=== PATIENT | male | born 1945 | race Caucasian/White ===

== ENCOUNTER 2017-05-09 17:21 | Inpatient (IN) | payer OTHER ==
[~2017-05-09] VITALS: Ht 180.3 cm; Wt 215.3 kg
[~2017-05-09 17:21] MED LIST: PIPERACILL/TAZOBAC IV 3.375 GM in DEXTROSE 5% 100ML 100 ML IV SCH
[2017-05-09 21:15] VITALS: BP 111/65; PULSE 85; TEMP 37.2; O2SAT 95; BMI 63.7
[2017-05-09] MEDS ORDERED: HEPARIN SOD 5000 UNIT/0.5 ML CARP SQ SCH (22:00)
[2017-05-09] MEDS ORDERED: GLUCOSE 10 TABS/TUBE PO PRN (22:00)
[2017-05-09] MEDS ORDERED: NITROGLYCERIN 0.4 MG SL PER TAB CHARGE SL PRN (22:00)
[2017-05-09] MEDS ORDERED: GLUCOSE 40% GEL 15 GM TUBE PO PRN (22:00)
[2017-05-09] MEDS ORDERED: ACETAMINOPHEN 325 MG TAB PO PRN (22:00)
[2017-05-09] MEDS ORDERED: GLUCAGON FOR INJ 1 MG VIAL SQ PRN (22:00)
[2017-05-09] MEDS ORDERED: MAGNESIUM HYDROXIDE SUSP 30 ML UDC PO PRN (22:00)
[2017-05-09] MEDS ORDERED: POLYETHYLENE (MIRALAX) 17 GM PACK PO PRN (22:00)
[2017-05-09] MEDS ORDERED: DEXTROSE 50% 50 ML SYR IV PRN (22:00)
[2017-05-09 22:03] VITALS: PULSE 83; O2SAT 95
[2017-05-09] MEDS ORDERED: VANCOMYCIN CONSULT ACTIVE PRN (22:15)
[2017-05-09] MEDS ORDERED: HYZ/50125 PO (22:29)
[2017-05-09] MEDS ORDERED: CIPR1TAB11 PO (22:29)
[2017-05-09] MEDS ORDERED: [UNRECOGNIZED DRUG - OTHER] OPB (22:29)
[2017-05-09] MEDS ORDERED: TRAM-10 PO (22:29)
[2017-05-09] MEDS ORDERED: FRS/40 PO (22:29)
[2017-05-09] MEDS ORDERED: ASPI81TA28 PO (22:29)
[2017-05-09] MEDS ORDERED: METF-384 PO (22:29)
[2017-05-09] MEDS ORDERED: AMOX500C3 PO (22:29)
[2017-05-09] MEDS ORDERED: POTA10CA28 PO (22:29)
[2017-05-09] MEDS ORDERED: MESA0.37 PO (22:29)
[2017-05-09] MEDS ORDERED: SULF400T7 PO (22:29)
--- NOTE | 2017-05-09 22:29 | DIAGNOSTIC IMAGING REPORT ---
CHEST ONE VIEW PORTABLE CLINICAL HISTORY: Acute respiratory failure. COMPARISON STUDY: No previous studies for comparison. FINDINGS: This exam is compromised given portable technique and body habitus. There is mild to moderate enlargement of the cardiac silhouette. No pneumothorax or pleural effusion is identified. There are bibasilar opacities, greater on the left. There is no evidence for pulmonary edema. IMPRESSION: 1. Bibasilar opacities, greater on the left. These may be artifactual however pneumonia could have this appearance. Radiographic follow up is recommended. 2. Mild to moderate enlargement of the cardiac silhouette without evidence for pulmonary edema. Electronically signed by: Sal Sun M.D. 05/09/2017 10:28 PM Dictated Date/Time: 05/09/2017 10:24 PM
[2017-05-09] MEDS ORDERED: PIPERACILL/TAZOBAC CONSULT ACTIVE PRN (22:30)
[2017-05-09] MEDS ORDERED: PATIENT'S ALLERGY INFO NEEDS ENTERED SCH (22:45)
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
[2017-05-09] MEDS ORDERED: TRAMADOL HCL 50 MG TAB PO PRN (23:00)
[2017-05-09 23:12] LABS: BASO % 0.2 %; BASO ABS # 0.02 K/uL (0-0.2); EOS % 2.6 %; EOS ABS # 0.23 K/uL (0-0.5); HEMATOCRIT 39.9 % (42-52); HEMOGLOBIN 12.3 g/dL (14.0-18.0); IG# 0.03 K/uL (0.00-0.02); LYMPH % 11.1 %; LYMPH ABS # 0.98 K/uL (1.2-3.4); MEAN CELL VOLUME 98.3 fL (80-100); MEAN CORPUSCULAR HEMOGLOBIN 30.3 pg (25-34); MEAN CORPUSCULAR HGB CONC 30.8 g/dl (32-36); MEAN PLATELET VOLUME 9.6 fL (7.4-10.4); MONO % 6.2 %; MONO ABS # 0.55 K/uL (0.11-0.59); NEUT % 79.6 %; NEUT ABS # 7.02 K/uL (1.4-6.5); PLATELET COUNT 198 K/uL (130-400); RED CELL DISTRIBUTION WIDTH CV 15.3 % (11.5-14.5); RED CELL DISTRIBUTION WIDTH SD 54.6 fL (36.4-46.3); WHITE BLOOD COUNT 8.83 K/uL (4.8-10.8)
[2017-05-09] MEDS: SODIUM CHLORIDE 0.9% 1000ML 1,000 ML IV SCH (23:15)
[2017-05-09] MEDS ORDERED: PIPERACILL/TAZOBAC IV 4.5 GM in DEXTROSE 5% 100ML IV ONE (23:15)
[2017-05-09 23:23] LABS: ALBUMIN 2.3 gm/dl (3.4-5.0); ALT/SGPT 22 U/L (12-78); BLOOD UREA NITROGEN 31 mg/dl (7-18); CARBON DIOXIDE 39 mmol/L (21-32); CREATININE 1.47 mg/dl (0.60-1.40); GLUCOSE 142 mg/dl (70-99); POTASSIUM 4.5 mmol/L (3.5-5.1); SODIUM 137 mmol/L (136-145)
[2017-05-09 23:28] LABS: ALKALINE PHOSPHATASE 50 U/L (45-117); AST/SGOT 21 U/L (15-37); PHOSPHORUS 3.8 mg/dl (2.5-4.9); TOTAL PROTEIN 7.6 gm/dl (6.4-8.2)
[2017-05-09] MEDS ORDERED: VANCOMYCIN INJ 2,750 MG in SODIUM CHLORIDE 0.9% 500ML 500 ML IV SCH (23:30)
[2017-05-09 23:33] VITALS: BP 116/48; PULSE 85; TEMP 37.2; O2SAT 99
[2017-05-10] VITALS (83 sets, daily range): BP systolic 56–136; BP diastolic 29–117; PULSE 66–111; TEMP 37.2; O2SAT 69–100; Ht 180.3 cm; Wt 215.3 kg
[2017-05-10] MEDS ORDERED: INFLUENZA VACCINE HIGH DOSE 65+ 0.5 ML SYR IM. ONE (01:00)
[2017-05-10] MEDS ORDERED: PNEUMOCOCCAL ADMINISTRATION CHARGE ONE (01:00)
[2017-05-10] MEDS ORDERED: PNEUMOCOCCAL POLYSACCHARIDES 25 MCG/0.5 ML VIAL/SYR IM. ONE (01:00)
[2017-05-10] MEDS ORDERED: INFLUENZA ADMINISTRATION CHARGE ONE (01:00)
[2017-05-10] MEDS ORDERED: SODIUM BICARB 8.4% INJ 50 MEQ/50 ML SYR IV ONE ×2 (02:35→02:44)
[2017-05-10] MEDS ORDERED: RAPID SEQUENCE INDUCTION BAG ONE ×2 (02:40→20:37)
[2017-05-10] MEDS ORDERED: PROPOFOL IV EMULSION 10 MG/ML 100 ML VIAL IV ONE (03:11)
[2017-05-10] MEDS ORDERED: SODIUM BICARBONATE 4.2% INJ 10 ML SYR IV STA (03:14)
[2017-05-10] MEDS ORDERED: MIDAZOLAM HCL 5 MG/ML 1 ML VIAL IV STA (03:17)
[2017-05-10] MEDS ORDERED: PROPOFOL IV EMULSION 10 MG/ML 100 ML VIAL IV PRN (03:17)
[2017-05-10] MEDS ORDERED: MIDAZOLAM 125MG/250ML D5W 250 ML IV PRN (03:48)
[2017-05-10] MEDS ORDERED: MIDAZOLAM 125MG/250ML D5W IV ONE (03:50)
[2017-05-10 03:51] LABS: INR 1.1 (0.9-1.1)
[2017-05-10] MEDS ORDERED: FENTANYL CITRATE 1250MCG/250ML NSS ONE (03:51)
[2017-05-10] MEDS: PIPERACILL/TAZOBAC IV 4.5 GM in DEXTROSE 5% 100ML IV SCH ×3 (03:54→21:23)
[2017-05-10] MEDS ORDERED: FENTANYL 1250MCG/250ML NSS 250 ML IV SCH (04:00)
[2017-05-10] MEDS ORDERED: ALBUMIN HUMAN 25% 12.5 GM/50 ML VIAL IV ONE ×3 (04:00→05:30)
[2017-05-10] MEDS ORDERED: FENTANYL CITRATE INJ 50 MCG/1 ML 2 ML VIAL IV PRN (04:00)
[2017-05-10] MEDS ORDERED: HEPARIN SQ 5000 UNIT/0.5ML 7,500 UNIT in SYRINGE 0 ML SC SCH (06:00)
[2017-05-10] MEDS ORDERED: HEPARIN SOD 5000 UNIT/0.5 ML CARP SQ SCH (06:00)
[2017-05-10] MEDS ORDERED: HEPARIN 5000 UNIT/0.5 ML SC SCH (06:00)
--- NOTE | 2017-05-10 06:35 | EMERGENCY ROOM VISIT NOTE ---
ED Visit Note Emergency endotracheal intubation note: I was asked to come to room 106 in the ICU to secure this patient's airway. This is a morbidly obese male patient in respiratory failure. The patient had O2 saturations in the low 90s on BiPAP and in the 60s on room air. Rapidly evaluated the patient's airway and concluded that this would be a difficult airway. I prepared equipment including the glide scope, rescue airway devices, suction, end-tidal CO2 detection, and colorimetric detector. We were able to use a BVM to obtain an O2 saturation of 96% with 2 person bag valve ventilation. End-tidal CO2 reading was 23. I was able to insert the glide scope into the patient's mouth without any sedation and visualize the cords. However, the patient began to bite down on the glide scope. At that point, the patient's vitals were stable. He was given 30 mg of IV etomidate. This gave significant relaxation to the patient's mouth and he was easily intubated with an 8.0 endotracheal tube. This measured 26 cm at the teeth. Tube placement was confirmed with positive colorimetric change on the end-tidal CO2 detector. There was condensation on the tube. The patient had bilateral breath sounds with auscultation. The tube was secured in place and a portable chest x-ray was ordered. Patient's O2 saturations remained greater than 92% throughout the entire procedure.
--- NOTE | 2017-05-10 07:14 | DIAGNOSTIC IMAGING REPORT ---
CHEST ONE VIEW PORTABLE CLINICAL HISTORY: 71 years-old Male presenting with TUBE PLACEMENT.. TECHNIQUE: Portable supine AP view of the chest was obtained. COMPARISON: 05/09/2017. FINDINGS: Endotracheal tube terminates over 7 cm from the perlita. Nasogastric tube descends below the diaphragm, terminus not visualized. Cardiomediastinal silhouette remains enlarged. Mildly low lung volumes with hypoventilatory changes. Prominence of pulmonary vasculature. Hazy bibasilar opacities greater on the left not significantly changed. Increased density of the right lung is also suggested more diffusely, violation limited by portable technique and patient body habitus. No pneumothorax. Osseous structures normal. Upper abdomen normal. IMPRESSION: 1. Appropriately positioned tubes. 2. Persistent bibasilar opacities, greater on the left, with more diffuse mild increase density of the right lung suggested. This is favored to represent pulmonary edema, although infection or aspiration are not excluded. Electronically signed by: Pk Duran M.D. 05/10/2017 7:12 AM Dictated Date/Time: 05/10/2017 7:10 AM
[2017-05-10 07:25] LABS: HEMOGLOBIN A1C 6.9 % (4.5-5.6)
[2017-05-10] MEDS: INSULIN ASPART 100 UNITS/ML 3 ML PEN SC SCH ×4 (07:55→23:54)
[2017-05-10] MEDS ORDERED: ALBUT/IPRATROP 3MG/0.5MG NEB 3 ML VIAL INH SCH (08:00)
[2017-05-10] MEDS: APRISO~ORDER AWAITING ACTION SCH ×4 (08:00→23:48)
[2017-05-10] MEDS ORDERED: INSULIN GLARGINE SOLOSTAR 100 UNITS/ML 3 ML PEN SC ONE (08:15)
[2017-05-10] MEDS: SODIUM CHLORIDE 0.9% 1000ML 1,000 ML IV SCH (08:16)
[2017-05-10] MEDS ORDERED: MIDAZOLAM HCL 5 MG/ML 2ML VIAL IV ONE (08:19)
[2017-05-10] MEDS ORDERED: FENTANYL CITRATE INJ 50 MCG/1 ML 2 ML VIAL IV ONE (08:19)
[2017-05-10] MEDS ORDERED: SUCCINYLCHOLINE CHLORIDE 20 MG/ML 10 ML VIAL IV ONE (08:19)
[2017-05-10] MEDS ORDERED: POTASSIUM CHLORIDE 10 MEQ TABCR PO SCH (09:00)
[2017-05-10] MEDS ORDERED: FUROSEMIDE 40 MG TAB PO SCH (09:00)
[2017-05-10] MEDS ORDERED: CEFEPIME IV 2,000 MG in DEXTROSE 5% 100ML 100 ML IV SCH (09:00)
[2017-05-10] MEDS ORDERED: ASPIRIN 81 MG ECTAB PO SCH (09:00)
[2017-05-10] MEDS ORDERED: LOSARTAN/HCTZ 50-12.5 EA TAB PO SCH (09:00)
[2017-05-10] MEDS: MULTIVITAMINS W/MINERALS 15ML UDP PO SCH (09:53)
[2017-05-10] MEDS: PROSOURCE NOCARB 30ML/PKT PO SCH ×2 (09:53→21:23)
[2017-05-10] MEDS: ASCORBIC ACID 500 MG TAB PO SCH (09:53)
[2017-05-10] MEDS: ZINC SULFATE 220 MG CAP PO SCH (09:53)
[2017-05-10] MEDS: PEPTAMEN INTENSE VHP 1000ML BAG OG SCH (09:53)
[2017-05-10] MEDS: FAMOTIDINE IV INJ 20 MG in SYRINGE 3 ML IV SCH ×2 (09:53→21:23)
--- NOTE | 2017-05-10 10:10 | DIAGNOSTIC IMAGING REPORT ---
BILATERAL LOWER EXTREMITY VENOUS DOPPLER CLINICAL HISTORY: Leg swelling. COMPARISON STUDY: No previous studies for comparison. TECHNIQUE: Sonography of the deep venous system of the bilateral lower extremities was performed. Compression and augmentation were evaluated. FINDINGS: The right common femoral, superficial femoral and popliteal veins were compressible. Augmentation was normal. Note is made of deep venous thrombus within the left superficial femoral and popliteal veins. This thrombus is age indeterminate. Evaluation of the calf vessels was suboptimal. IMPRESSION: Age indeterminate deep venous thrombus within the left superficial femoral and popliteal veins. Electronically signed by: Sal Sun M.D. 05/10/2017 10:08 AM Dictated Date/Time: 05/10/2017 10:07 AM
--- NOTE | 2017-05-10 10:14 | Clinical Documentation Query ---
CLINICAL DOCUMENTATION QUERY Dr. PEREZ, In your clinical opinion is this patient being managed for: ( ) Chronic hypoxic respiratory failure ( ) Not Agree ( ) Other explanation of clinical findings (Please Explain) ( ) Unable to determine (Please Define) ( ) Need to Discuss The medical record reflects the following clinical findings, treatment, and risk factors. Clinical Indicators: 71 yo male presenting with acute respiratory failure. Noted to wear home O2 and CPAP but is poorly compliant. Treatment: chronic home O2 Risk Factors: morbid obesity with DANA Please clarify and document your clinical opinion in the progress notes and discharge summary. Terms such as "probable", "suspected", "likely", "questionable", "possible", or "still to be ruled out" are acceptable. IF IN AGREEMENT, YOU MUST DOCUMENT ABOVE DIAGNOSTIC STATEMENT IN DAILY PROGRESS NOTES AND DISCHARGE SUMMARY. This document is not part of the patient's record. Thank You, Kandi Ward RN [phone]
[2017-05-10 10:19] LABS: INFLUENZA A PCR Neg for Influ A (NEG); INFLUENZA B PCR Neg for Influ B (NEG)
[2017-05-10] MEDS ORDERED: VANCOMYCIN INJ 2,500 MG in SODIUM CHLORIDE 0.9% 500ML 500 ML IV STA (11:13)
[2017-05-10 11:50] LABS: MEAN CORPUSCULAR HGB CONC 30.2 g/dl (32-36)
[2017-05-10 11:53] LABS: HEMATOCRIT 39.1 % (42-52); HEMOGLOBIN 11.8 g/dL (14.0-18.0); MEAN CELL VOLUME 100.8 fL (80-100); MEAN CORPUSCULAR HEMOGLOBIN 30.4 pg (25-34); MEAN PLATELET VOLUME 9.6 fL (7.4-10.4); PLATELET COUNT 178 K/uL (130-400); RED CELL DISTRIBUTION WIDTH CV 15.3 % (11.5-14.5); RED CELL DISTRIBUTION WIDTH SD 55.9 fL (36.4-46.3); WHITE BLOOD COUNT 8.07 K/uL (4.8-10.8)
[2017-05-10 11:55] LABS: BASO % 0.1 %; BASO ABS # 0.01 K/uL (0-0.2); EOS % 3.2 %; EOS ABS # 0.26 K/uL (0-0.5); IG# 0.02 K/uL (0.00-0.02); LYMPH ABS # 0.81 K/uL (1.2-3.4); MONO % 7.7 %; MONO ABS # 0.62 K/uL (0.11-0.59); NEUT % 78.8 %; NEUT ABS # 6.35 K/uL (1.4-6.5)
--- NOTE | 2017-05-10 11:55 | ECHOCARDIOGRAM REPORT ---
*NOTICE TO RECEIVING LIBERTARIAN AGENCY This information is strictly Confidential and protected under [place] law. [place] law prohibits you from making any further disclosure of this information unless further disclosure is expressly permitted by the written consent of the person to whom it pertains or is authorized by law. A general authorization for the release of medical or other information is not sufficient for this purpose. Hospital accepts no responsibility if the information is made available to any other person, INCLUDING THE PATIENT. Interpretation Summary * Name: EVELINA BUTT Study Date: 05/10/2017 08:58 AM BP: 107/50 mmHg * [facility] HR: 77 * : 1945 (M/d/yyyy) Gender: Male Height: 71 in * Age: 71 yrs Ethnicity: CA Weight: 457 lb * Ordering Physician: Saurav Jalloh * Referring Physician: No Doctor, Assigned * Performed By: Elizabeth Givens RDCS * * Reason For Study: CHF * BSA: 3.0 m2 * -- Conclusions -- * The left ventricle is borderline dilated. * Left ventricular systolic function is normal. * The right ventricle is mildly dilated. * The right ventricular systolic function is borderline reduced. * Right ventricular systolic pressure is normal. * The inferior vena cava is mildly dilated. Procedure Details * The study was technically limited. * The study was technically difficult. * A contrast injection of Definity was performed to improve assessment of LV function. * Contrast was injected into an intravenous site in the right arm. * One vial of Definity ultrasound contrast was diluted in normal saline to a total volume of 10 ml. A total of '2' ml of solution was administered during imaging. * Lot # [id number] of Definity utilized for procedure. * Expiration date 1 MAY 03. * The attending nurse who injected the contrast agent was JULIANNE BAGLEY RN. Left Ventricle * The left ventricle is borderline dilated. * There is mild concentric left ventricular hypertrophy. * Left ventricular systolic function is normal. * The left ventricular wall motion is normal. Right Ventricle * The right ventricle is mildly dilated. * There is normal right ventricular wall thickness. * The right ventricular systolic function is borderline reduced. Atria * The left atrial size is normal. * Right atrial size is normal. Mitral Valve * The mitral valve is grossly normal. * Significant mitral regurgitation is absent. Tricuspid Valve * The tricuspid valve is not well visualized. * There is trace tricuspid regurgitation. * Right ventricular systolic pressure is normal. Aortic Valve * The aortic valve is normal in structure and function. * Aortic valve sclerosis mild, without significant aortic valvular stenosis. * No hemodynamically significant valvular aortic stenosis. * There is no significant aortic regurgitation. Pericardium/Pleural * There is no pericardial effusion. Great Vessels * The inferior vena cava is mildly dilated. MMode 2D Measurements and Calculations IVSd 1.4 cm IVSs 1.9 cm LVIDd 5.6 cm LVIDs 3.7 cm LVPWd 1.3 cm LVPWs 1.8 cm IVS/LVPW 1.1 FS 33.4 % EDV(Teich) 153.9 ml ESV(Teich) 59.4 ml EF(Teich) 61.4 % EDV(cubed) 176.0 ml ESV(cubed) 52.1 ml EF(cubed) 70.4 % % IVS thick 34.3 % % LVPW thick 35.4 % LV mass(C)d 344.0 grams LV mass(C)dI 114.8 grams/m\S\2 LV mass(C)s 305.2 grams LV mass(C)sI 101.9 grams/m\S\2 SV(Teich) 94.5 ml SI(Teich) 31.5 ml/m\S\2 SV(cubed) 123.9 ml SI(cubed) 41.4 ml/m\S\2 Ao root diam 3.8 cm Ao root area 11.4 cm\S\2 LA dimension 3.3 cm LA/Ao 0.87
[2017-05-10 12:05] LABS: INR 1.1 (0.9-1.1); PTT PATIENT 25.1 SECONDS (21.0-31.0)
--- NOTE | 2017-05-10 12:07 | Pharmacy Progress Note ---
Pharmacy Antibiotic Consult Date of Service: May 10, 2017. Pharmacy Dosing Scope Pharmacy is consulted to initiate vancomycin IV dosing therapy, order appropriate labs and adjust drug dose/frequency. Subjective The patient is a 71 year old male admitted on May 09, 2017 at 21:08. Objective Height (Feet): 5 Height (Inches): 11.00 Weight (Kilograms): 207.300 Lab Results (24hrs): Test 05/09/17 22:23 05/09/17 22:37 05/09/17 22:50 05/09/17 23:06 Bedside Glucose 151 mg/dl (70-99) Urine Color YELLOW Urine Appearance CLEAR (CLEAR) Urine pH 5.0 (4.5-7.5) Urine Specific [place] 1.019 (1.000-1.030) Urine Protein TRACE (NEG) Urine Glucose (UA) NEG (NEG) Urine Ketones NEG (NEG) Urine Occult Blood 1+ (NEG) Urine Nitrite NEG (NEG) Urine Bilirubin NEG (NEG) Urine Urobilinogen NEG (NEG) Urine Leukocyte Esterase MODERATE (NEG) Urine WBC (Auto) 5-10 /hpf (0-5) Urine RBC (Auto) 10-30 /hpf (0-4) Urine Hyaline Casts (Auto) 1-5 /lpf (0-5) Urine Epithelial Cells (Auto) 20-30 /lpf (0-5) Urine Bacteria (Auto) NEG (NEG) White Blood Count 8.83 K/uL (4.8-10.8) Red Blood Count 4.06 M/uL (4.7-6.1) Hemoglobin 12.3 g/dL (14.0-18.0) Hematocrit 39.9 % (42-52) Mean Corpuscular Volume 98.3 fL (80-100) Mean Corpuscular Hemoglobin 30.3 pg (25-34) Mean Corpuscular Hemoglobin Concent 30.8 g/dl (32-36) Platelet Count 198 K/uL (130-400) Mean Platelet Volume 9.6 fL (7.4-10.4) Neutrophils (%) (Auto) 79.6 % Lymphocytes (%) (Auto) 11.1 % Monocytes (%) (Auto) 6.2 % Eosinophils (%) (Auto) 2.6 % Basophils (%) (Auto) 0.2 % Neutrophils # (Auto) 7.02 K/uL (1.4-6.5) Lymphocytes # (Auto) 0.98 K/uL (1.2-3.4) Monocytes # (Auto) 0.55 K/uL (0.11-0.59) Eosinophils # (Auto) 0.23 K/uL (0-0.5) Basophils # (Auto) 0.02 K/uL (0-0.2) RDW Standard Deviation 54.6 fL (36.4-46.3) RDW Coefficient of Variation 15.3 % (11.5-14.5) Immature Granulocyte % (Auto) 0.3 % Immature Granulocyte # (Auto) 0.03 K/uL (0.00-0.02) Prothrombin Time 11.6 SECONDS (9.0-12.0) Prothromb Time International Ratio 1.1 (0.9-1.1) Sodium Level 137 mmol/L (136-145) Potassium Level 4.5 mmol/L (3.5-5.1) Chloride Level 98 mmol/L (98-107) Carbon Dioxide Level 39 mmol/L (21-32) Anion Gap 1.0 mmol/L (3-11) Blood Urea Nitrogen 31 mg/dl (7-18) Creatinine 1.47 mg/dl (0.60-1.40) Est Creatinine Clear Calc Drug Dose 84.7 ml/min Estimated GFR () 55.2 Estimated GFR (Non- 47.7 BUN/Creatinine Ratio 21.2 (10-20) Random Glucose 142 mg/dl (70-99) Estimated Average Glucose 151 mg/dl Hemoglobin A1c 6.9 % (4.5-5.6) Calcium Level 8.0 mg/dl (8.5-10.1) Phosphorus Level 3.8 mg/dl (2.5-4.9) Magnesium Level 1.9 mg/dl (1.8-2.4) Total Bilirubin 0.5 mg/dl (0.2-1) Aspartate Amino Transf (AST/SGOT) 21 U/L (15-37) Alanine Aminotransferase (ALT/SGPT) 22 U/L (12-78) Alkaline Phosphatase 50 U/L (45-117) Troponin I < 0.015 ng/ml (0-0.045) Total Protein 7.6 gm/dl (6.4-8.2) Albumin 2.3 gm/dl (3.4-5.0) Globulin 5.3 gm/dl (2.5-4.0) Albumin/Globulin Ratio 0.4 (0.9-2) Hepatitis C Antibody Screen NEG (NEG) Arterial Blood pH 7.27 (7.35-7.45) Arterial Blood Partial Pressure CO2 81 mmHg (35-46) Arterial Blood Partial Pressure O2 89 mm/Hg (80-95) Arterial Blood HCO3 36 mmol/L (19-24) Arterial Blood Oxygen Saturation 95.0 % (90-95) Arterial Blood Base Excess 6.2 mEq/L (-9-1.8) Arterial Blood Gas Delivery 50% Colin Test POS (POS) Test 05/10/17 02:12 05/10/17 04:34 05/10/17 06:04 05/10/17 06:39 Blood Gas IPAP 20 Bedside Oxygen Rate (breaths/min) 16 16 Blood Gas Minute Ventilation 9.8 8 Blood Gas Tidal Volume 650 550 Blood Gas Sample Site L Radial Bedside Blood Gas pH (LAB) 7.48 (7.35-7.45) Bedside Blood Gas pCO2 (LAB) 51 mmHg (35-46) Bedside Blood Gas pO2 (LAB) 84 mmHg (80-95) Bedside Blood Gas HCO3 (LAB) 38 meq/L (19-24) Bedside Blood Gas Total CO2 > 40 mEq/l (24-31) Bedside Blood Gas Base Excess (LAB) 15.0 meq/L (-9-1.8) Bedside Blood Gas O2 Saturation 97.0 % (90-95) Colin Test Pass Oxygen Delivery Device Ventilator Bedside FiO2 50 % Blood Gas PEEP 5 Bedside Glucose 156 mg/dl (70-99) Test 05/10/17 07:31 05/10/17 09:15 05/10/17 09:30 05/10/17 11:11 Random Vancomycin Level 22.5 mcg/ml Influenza Type A (RT-PCR) Neg for Influ A (NEG) Influenza Type B (RT-PCR) Neg for Influ B (NEG) Pro-B-Type Natriuretic Peptide 392 pg/ml (0-900) Procalcitonin 0.09 ng/ml (0-0.5) Blood Gas Sample Site L Radial Bedside Blood Gas pH (LAB) 7.31 (7.35-7.45) Bedside Blood Gas pCO2 (LAB) 81 mmHg (35-46) Bedside Blood Gas pO2 (LAB) 86 mmHg (80-95) Bedside Blood Gas HCO3 (LAB) 40 meq/L (19-24) Bedside Blood Gas Total CO2 > 40 mEq/l (24-31) Bedside Blood Gas Base Excess (LAB) 14.0 meq/L (-9-1.8) Bedside Blood Gas O2 Saturation 95.0 % (90-95) Colin Test Pass Oxygen Delivery Device Ventilator Bedside FiO2 50 % Blood Gas PEEP 5 Test 05/10/17 11:24 Mean Corpuscular Hemoglobin Concent 30.2 g/dl (32-36) Assessment & Plan Assessment * 71 yo morbidly obese male transferred from [facility] on 05/09 PM for respiratory failure. Uses home O2, currently on BiPAP. * No previous admissions to [facility] * Possible sources of infection * Pulmonary - wet cough w hypoxic respiratory failure. But CXR @ [facility] with no acute cardiopulmonary process * Urinary - abnormal UA @ [facility]. Patient denied burning on urination. * Cellulitis - chronic LE wound, follows w wound clinic. On ciprofloxacin, Bactrim, and amoxicillin at home. * Antibiotics * Zosyn and vancomycin day 1. OK for now. * Cultures * Negative MRSA nasal swab * RLE ulcer w GNR x2 * Blood, urine cultures pending * Renal * SCr 1.47 mg/dL. Unknown baseline. * If SCr not acutely changing, eCrCL would be 85 mL/min * UOP via Syed minimal at this time - 400 mL charted since admission * Possible acute renal dysfunction - will monitor UOP, SCr trends closely Vancomycin * Overnight pharmacist spoke w Dr. Payton - vancomycin 1100 mg given at [facility] 05/09 @ ~1300 * Gave an additional 2750 mg IV x1 (13 mg/kg) here, administered 05/10 @ ~ 0015 * Goal trough level 15-20 mcg/mL * Obtained 7 hour *random* level to assess if lower mg/kg loading dose adequate (maxed dose 2nd obesity). * Level was expectedly a little high as it was obtained only 7 hours after previous dose, but not significantly high * OK to give additional vancomycin at this time. * Will give 12 mg/kg IV x1 now * Will not schedule additional vancomycin 2nd unclear trend in renal function * Will order another random level, to be drawn 10 hr after the next dose Plan * Vancomycin 2500 mg IV x1 now * Random level 05/10 @ 2200 * Ongoing vancomycin to be based on trend in SCr, UOP, and vancomycin level Pharmacy will continue to follow and will adjust dose/frequency as necessary. Thank you
--- NOTE | 2017-05-10 12:15 | Procedure Note ---
Procedure Note Date of Service May 10, 2017. Procedure Note Critical Care Medicine Point of Care Bedside Ultrasound Procedure: Limited Bedside Lung Ultrasound Procedure Date: 2017 Indication: Respiratory failure Attending: Markie Jalloh DO Organs Examined: Lung BLUE point (upper), BLUE point (lower), Phrenic Point (axillary), PLAPS point ( posterior) A lines visualized: Y, Hemithorax: B B lines visualized: N, Hemithorax: B Lung Sliding: Y, Hemithorax: B Tissue-like Sign: N, Hemithorax: B Shred Sign: NA, Hemithorax: B Quad Sign: NA, Hemithorax: B Sinusoid Sign: NA, Hemithorax: B Type of effusions: NA\, Hemithorax: B Interpleural distance: NA Impression: Type A profile bilaterally Plan: Following up lower extremity DVT scan Images obtained are saved for permanent record
--- NOTE | 2017-05-10 13:04 | Critical Care Consultation ---
Critical Care Consultation Date of Consultation: May 10, 2017. Attending Physician: Gia Rodriguez DO Reason for Consultation: Acute on chronic hypercarbic respiratory failure History of Present Illness History is obtained from prior records, records from [facility], as well as the patient's . Per outside records the patient presented to [facility] emergency department for having increasing shortness of breath and bilateral lower extremity edema for the past 3 days. He was reportedly feeling off and his son called EMS. He has a history of oxygen dependent respiratory failure of unclear etiology and likely obesity hypoventilation syndrome, he is noncompliant with his CPAP at home. The patient was transferred to [facility] overconcerns that he could decompensate and [facility] did not have an intensive care unit. At [facility] they gave him IV naloxone as well as CPAP. The patient was received [facility] he was receiving BiPAP at 16/8 with an FiO2 of 50%. He was started on vancomycin and Zosyn for the complex skin and soft tissue infection of the lower extremities. Repeat blood gas analysis secondary to the patient being obtunded revealed a PCO2 of 97. The patient was emergently intubated by Dr. Cueto. I have attempted to obtain prior records from [facility]. The records they sent only included the patient's recent ED visit, we do not have prior records of the patient on file here at [facility]. Past Medical/Surgical History Hypoxic respiratory failure with home oxygen therapy Morbid obesity BMI of 63 History of obstructive sleep apnea noncompliant with CPAP therapy No reported history of DVT or venous thromboembolism Social History Smoking Status: Never Smoker Smokeless Tobacco Use: No Alcohol Use: none Drug Use: none Occupation Status: retired Allergies Coded Allergies: No Known Allergies (Unverified , 05/09/17) Home Medications Scheduled Amoxicillin (Amoxil), 1 CAP PO BID Aspirin (Aspirin Ec), 81 MG PO DAILY Ciprofloxacin Tab (Cipro), 500 MG PO BID Furosemide (Lasix), 40 MG PO BID Hctz/Losartan (Hyzaar 12.5MG/50MG), 1 TAB PO DAILY Mesalamine (Apriso), 1,500 MG PO DAILY Metformin Hcl (Glucophage), 1,000 MG PO BID Potassium Chloride (Micro-K Ext Rel), 20 MEQ PO DAILY Sulfamethoxazole-Trimethoprim (Bactrim 400MG/80MG), 1 TAB PO BID [prednisone mana 0.12%], 1 DROP OPB TID Scheduled PRN Tramadol (Ultram), 50 MG PO Q4H PRN for Pain Current Inpatient Medications Current Inpatient Medications Medications (Trade) Dose Ordered Sig/Kathe Route Start Time Stop Time Status Last Admin Dose Admin Ondansetron HCl (Zofran Inj) 4 mg Q6H PRN IV 05/09/17 22:00 06/08/17 21:59 Nitroglycerin (Nitrostat Tab) 0.4 mg UD PRN SL 05/09/17 22:00 06/08/17 21:59 Insulin Aspart (novoLOG ASPART) SLIDING SCALE If C... ACHS SC 05/10/17 06:45 06/09/17 06:59 Glucose (Glucose 40% Gel) 15-30 GRAMS 15 GRAMS... UD PRN PO 05/09/17 22:00 06/08/17 21:59 Glucose (Glucose Chew Tab) 4-8 Tablets 4 Tabl... UD PRN PO 05/09/17 22:00 06/08/17 21:59 Dextrose (Dextrose 50% 50ML Syringe) 25-50ML OF 50% DW IV FOR... UD PRN IV 05/09/17 22:00 06/08/17 21:59 Glucagon (Glucagon Inj) 1 mg UD PRN SQ 05/09/17 22:00 06/08/17 21:59 Miscellaneous Information (Consult) 1 ea UD PRN N/A 05/09/17 22:15 06/08/17 22:14 Miscellaneous Information (Consult) 1 ea UD PRN N/A 05/09/17 22:30 06/08/17 22:29 Miscellaneous Information (Order Awaiting Action) 1 ea QS N/A 05/10/17 00:00 06/09/17 00:00 Miscellaneous Information (Order Awaiting Action) 1 ea QS N/A 05/10/17 00:00 06/09/17 00:00 Piperacillin Sod/ Tazobactam Sod 4.5 gm/Dextrose 120 ml @ 30 mls/hr Q8H IV 05/10/17 04:00 05/12/17 03:59 05/10/17 03:54 30 MLS/HR Fentanyl Citrate (Fentanyl Inj) 100 mcg Q2H PRN IV 05/10/17 08:45 05/24/17 08:44 Midazolam HCl (Versed Inj) 2 mg Q2H PRN IV 05/10/17 08:45 06/09/17 08:44 Famotidine 20 mg/ Syringe 5 ml @ 2.5 mls/min Q12 IV 05/10/17 09:30 06/09/17 09:29 05/10/17 09:53 2.5 MLS/MIN Enteral Nutritional Formula (Peptamen Intense VHP) 1,000 ml UD OG 05/10/17 09:00 06/09/17 08:59 05/10/17 09:53 1,000 ML Enteral Nutritional Formula (Prosource No Carb) 30 ml BID PO 05/10/17 09:00 06/09/17 08:59 05/10/17 09:53 30 ML Ascorbic Acid (Vitamin C Tab) 500 mg QAM PO 05/10/17 09:00 06/09/17 08:59 05/10/17 09:53 500 MG Zinc Sulfate (Zinc Sulfate Cap) 220 mg QAM PO 05/10/17 09:00 06/09/17 08:59 05/10/17 09:53 220 MG Multivitamins Therapeutic (Cerovite Liquid) 15 ml QAM PO 05/10/17 09:00 06/09/17 08:59 05/10/17 09:53 15 ML Heparin Sodium/ Dextrose 500 ml @ 46 mls/hr [id number] PRN IV 05/10/17 11:00 06/09/17 10:59 Vancomycin HCl 2500 mg/Sodium Chloride 550 ml @ 200 mls/hr NOW STAT IV 05/10/17 11:13 05/10/17 13:57 Review of Systems Unable to obtain due to patient being intubated Physical Exam Date Time Temp Pulse Resp B/P (MAP) Pulse Ox O2 Delivery O2 Flow Rate FiO2 05/10/17 12:06 83 19 134/63 (86) 100 CPAP 50 Mechanical Ventilator 05/10/17 12:00 Mechanical Ventilator 50 05/10/17 11:18 50 05/10/17 10:00 78 16 116/51 (72) 90 CPAP 50 Mechanical Ventilator 05/10/17 08:00 Mechanical Ventilator 50 05/10/17 08:00 37.2 80 13 121/54 (76) 97 Mechanical Ventilator 50 05/10/17 08:00 50 05/10/17 07:34 50 05/10/17 06:46 83 13 107/50 (69) 97 05/10/17 06:31 86 12 127/57 (80) 100 05/10/17 06:16 76 12 125/57 (79) 100 05/10/17 06:15 50 05/10/17 06:01 79 16 109/52 (71) 99 05/10/17 05:51 73 16 115/53 (73) 98 05/10/17 05:46 70 16 109/50 (69) 99 05/10/17 05:45 70 16 109/50 (69) 99 50 05/10/17 05:41 71 16 106/52 (70) 99 05/10/17 05:41 71 16 106/52 (70) 99 05/10/17 05:36 73 16 94/48 (63) 91 05/10/17 05:36 73 16 94/48 (63) 91 05/10/17 05:31 73 16 94/47 (63) 94 05/10/17 05:31 73 16 94/47 (63) 94 05/10/17 05:30 73 16 94 05/10/17 05:30 73 16 94 05/10/17 05:26 73 16 88/44 (59) 94 05/10/17 05:21 73 16 82/43 (56) 90 05/10/17 05:16 73 16 85/43 (57) 93 05/10/17 05:16 73 16 85/43 (57) 93 05/10/17 05:15 72 16 94 05/10/17 05:11 72 16 79/41 (54) 87 05/10/17 05:06 73 16 73/41 (52) 91 05/10/17 05:05 72 16 68/37 (47) 90 05/10/17 05:01 73 16 91 05/10/17 05:00 73 16 73/39 (50) 91 05/10/17 04:56 66 16 70/45 (53) 90 05/10/17 04:54 73 16 65/37 (46) 05/10/17 04:53 74 16 66/36 (46) 92 05/10/17 04:51 72 16 90 05/10/17 04:50 73 16 75/40 (52) 91 05/10/17 04:46 72 16 75/37 (50) 91 05/10/17 04:41 75 16 94 05/10/17 04:38 75 16 91/45 (60) 95 05/10/17 04:36 76 16 93 05/10/17 04:35 76 16 63/30 (41) 94 05/10/17 04:32 77 16 81/39 (53) 96 05/10/17 04:31 76 16 91 05/10/17 04:26 77 16 96 05/10/17 04:21 77 16 99/47 (64) 96 05/10/17 04:21 77 16 99/47 (64) 96 05/10/17 04:17 79 16 97/50 (66) 96 05/10/17 04:16 80 16 95 05/10/17 04:12 79 16 88/55 (66) 95 05/10/17 04:11 79 16 05/10/17 04:10 79 16 130/108 (115) 05/10/17 04:06 77 16 96 05/10/17 04:01 77 18 96 05/10/17 04:00 75 16 81/36 (51) 98 05/10/17 03:58 76 16 70/51 (57) 95 05/10/17 03:56 75 16 64/44 (51) 97 05/10/17 03:51 73 16 73/34 (47) 94 05/10/17 03:46 76 16 56/31 (39) 90 05/10/17 03:45 75 17 65/29 (41) 91 05/10/17 03:44 76 13 60/33 (42) 91 05/10/17 03:41 77 16 60/31 (41) 92 05/10/17 03:36 80 16 63/32 (42) 92 05/10/17 03:35 80 16 63/30 (41) 92 05/10/17 03:31 84 16 65/33 (44) 93 05/10/17 03:26 87 16 83/40 (54) 97 05/10/17 03:26 87 16 83/40 (54) 97 05/10/17 03:25 88 16 96 05/10/17 03:22 88 16 101/73 (82) 96 2/26/18 03:20 91 16 95 05/10/17 03:17 95 16 123/58 (79) 91 05/10/17 03:15 95 11 93 05/10/17 03:11 95 0 113/62 (79) 93 05/10/17 03:10 94 24 93 05/10/17 03:06 96 0 125/63 (83) 97 05/10/17 03:05 96 0 96 05/10/17 03:03 98 0 100/78 (85) 89 05/10/17 03:00 50 05/10/17 03:00 93 9 95 05/10/17 02:56 93 23 126/66 (86) 77 05/10/17 02:55 96 27 69 05/10/17 02:54 94 24 99/55 (70) 76 05/10/17 02:52 92 23 136/117 (123) 79 05/10/17 02:50 90 15 100 05/10/17 02:46 90 19 123/67 (85) 94 05/10/17 02:45 91 10 05/10/17 01:13 88 94 05/10/17 00:00 99 BiPAP 50 05/09/17 23:33 37.2 85 23 116/48 (70) 99 CPAP 50 05/09/17 22:03 83 95 05/09/17 21:15 37.2 85 20 111/65 95 BiPAP Head: normocephalic Eyes: PERRLA ENT: other (Endotracheal tube in place) Neck: no tenderness, trachea midline, no stridor, no nuchal rigidity Respiratory: other (Difficult exam, distant breath sounds) Cardiovasular: regular rate/rhythm, other (Difficult exam distant heart sounds) Abdomen: other (No tenderness with palpation) Genitourinary - Male: other (Syed present) Lower Extremities: edema (+2), other (I removed the dressing of the right lower extremity, there appears to be chronic venous stasis ulcers with significant skin changes) Edema: Bilateral LE (2+) Neuro: other (During my evaluation the patient's Hebert agitation scale score was -4) Laboratory Results Last 24 Hours Test 05/09/17 22:23 05/09/17 22:37 05/09/17 22:50 05/09/17 23:06 Bedside Glucose 151 mg/dl Urine Color YELLOW Urine Appearance CLEAR Urine pH 5.0 Urine Specific [place] 1.019 Urine Protein TRACE Urine Glucose (UA) NEG Urine Ketones NEG Urine Occult Blood 1+ Urine Nitrite NEG Urine Bilirubin NEG Urine Urobilinogen NEG Urine Leukocyte Esterase MODERATE Urine WBC (Auto) 5-10 /hpf Urine RBC (Auto) 10-30 /hpf Urine Hyaline Casts (Auto) 1-5 /lpf Urine Epithelial Cells (Auto) 20-30 /lpf Urine Bacteria (Auto) NEG White Blood Count 8.83 K/uL Red Blood Count 4.06 M/uL Hemoglobin 12.3 g/dL Hematocrit 39.9 % Mean Corpuscular Volume 98.3 fL Mean Corpuscular Hemoglobin 30.3 pg Mean Corpuscular Hemoglobin Concent 30.8 g/dl Platelet Count 198 K/uL Mean Platelet Volume 9.6 fL Neutrophils (%) (Auto) 79.6 % Lymphocytes (%) (Auto) 11.1 % Monocytes (%) (Auto) 6.2 % Eosinophils (%) (Auto) 2.6 % Basophils (%) (Auto) 0.2 % Neutrophils # (Auto) 7.02 K/uL Lymphocytes # (Auto) 0.98 K/uL Monocytes # (Auto) 0.55 K/uL Eosinophils # (Auto) 0.23 K/uL Basophils # (Auto) 0.02 K/uL RDW Standard Deviation 54.6 fL RDW Coefficient of Variation 15.3 % Immature Granulocyte % (Auto) 0.3 % Immature Granulocyte # (Auto) 0.03 K/uL Prothrombin Time 11.6 SECONDS Prothromb Time International Ratio 1.1 Sodium Level 137 mmol/L Potassium Level 4.5 mmol/L Chloride Level 98 mmol/L Carbon Dioxide Level 39 mmol/L Anion Gap 1.0 mmol/L Blood Urea Nitrogen 31 mg/dl Creatinine 1.47 mg/dl Est Creatinine Clear Calc Drug Dose 84.7 ml/min Estimated GFR () 55.2 Estimated GFR (Non- 47.7 BUN/Creatinine Ratio 21.2 Random Glucose 142 mg/dl Estimated Average Glucose 151 mg/dl Hemoglobin A1c 6.9 % Calcium Level 8.0 mg/dl Phosphorus Level 3.8 mg/dl Magnesium Level 1.9 mg/dl Total Bilirubin 0.5 mg/dl Aspartate Amino Transf (AST/SGOT) 21 U/L Alanine Aminotransferase (ALT/SGPT) 22 U/L Alkaline Phosphatase 50 U/L Troponin I < 0.015 ng/ml Total Protein 7.6 gm/dl Albumin 2.3 gm/dl Globulin 5.3 gm/dl Albumin/Globulin Ratio 0.4 Hepatitis C Antibody Screen NEG Arterial Blood pH 7.27 Arterial Blood Partial Pressure CO2 81 mmHg Arterial Blood Partial Pressure O2 89 mm/Hg Arterial Blood HCO3 36 mmol/L Arterial Blood Oxygen Saturation 95.0 % Arterial Blood Base Excess 6.2 mEq/L Arterial Blood Gas Delivery 50% Colin Test POS Test 05/10/17 02:12 05/10/17 04:34 05/10/17 06:04 05/10/17 06:39 Blood Gas Sample Site L Radial L Radial L Radial Bedside Blood Gas pH (LAB) 7.22 7.45 7.48 Bedside Blood Gas pCO2 (LAB) 97 mmHg 60 mmHg 51 mmHg Bedside Blood Gas pO2 (LAB) 88 mmHg 67 mmHg 84 mmHg Bedside Blood Gas HCO3 (LAB) 40 meq/L 41 meq/L 38 meq/L Bedside Blood Gas Total CO2 > 40 mEq/l > 40 mEq/l > 40 mEq/l Bedside Blood Gas Base Excess (LAB) 12.0 meq/L 17.0 meq/L 15.0 meq/L Bedside Blood Gas O2 Saturation 93.0 % 93.0 % 97.0 % Colin Test Pass Pass Pass Oxygen Delivery Device BIPAP Ventilator Ventilator Bedside Oxygen Rate (breaths/min) 20 16 16 Bedside FiO2 50 % 50 % 50 % Blood Gas IPAP 20 Blood Gas Minute Ventilation 9.8 8 Blood Gas Tidal Volume 650 550 Blood Gas PEEP 5 5 Bedside Glucose 156 mg/dl Test 05/10/17 07:31 05/10/17 09:15 05/10/17 09:30 05/10/17 11:11 Random Vancomycin Level 22.5 mcg/ml Influenza Type A (RT-PCR) Neg for Influ A Influenza Type B (RT-PCR) Neg for Influ B Pro-B-Type Natriuretic Peptide 392 pg/ml Procalcitonin 0.09 ng/ml Blood Gas Sample Site L Radial Bedside Blood Gas pH (LAB) 7.31 Bedside Blood Gas pCO2 (LAB) 81 mmHg Bedside Blood Gas pO2 (LAB) 86 mmHg Bedside Blood Gas HCO3 (LAB) 40 meq/L Bedside Blood Gas Total CO2 > 40 mEq/l Bedside Blood Gas Base Excess (LAB) 14.0 meq/L Bedside Blood Gas O2 Saturation 95.0 % Colin Test Pass Oxygen Delivery Device Ventilator Bedside FiO2 50 % Blood Gas PEEP 5 Test 05/10/17 11:24 White Blood Count 8.07 K/uL Red Blood Count 3.88 M/uL Hemoglobin 11.8 g/dL Hematocrit 39.1 % Mean Corpuscular Volume 100.8 fL Mean Corpuscular Hemoglobin 30.4 pg Mean Corpuscular Hemoglobin Concent 30.2 g/dl Platelet Count 178 K/uL Mean Platelet Volume 9.6 fL Neutrophils (%) (Auto) 78.8 % Lymphocytes (%) (Auto) 10.0 % Monocytes (%) (Auto) 7.7 % Eosinophils (%) (Auto) 3.2 % Basophils (%) (Auto) 0.1 % Neutrophils # (Auto) 6.35 K/uL Lymphocytes # (Auto) 0.81 K/uL Monocytes # (Auto) 0.62 K/uL Eosinophils # (Auto) 0.26 K/uL Basophils # (Auto) 0.01 K/uL RDW Standard Deviation 55.9 fL RDW Coefficient of Variation 15.3 % Immature Granulocyte % (Auto) 0.2 % Immature Granulocyte # (Auto) 0.02 K/uL Basophilic Stippling 1+ Prothrombin Time 11.5 SECONDS Prothromb Time International Ratio 1.1 Activated Partial Thromboplast Time 25.1 SECONDS Partial Thromboplastin Ratio 1.0 Diagnostic Results Lower extremity ultrasound:IMPRESSION: Age indeterminate deep venous thrombus within the left superficial femoral and popliteal veins. Echo dated May 10, 2017: Summary: Normal left ventricular systolic function , mildly dilated right ventricle mildly reduced right ventricle systolic function I have independently reviewed the chest x-ray images as well as the radiology report:IMPRESSION: 1. Appropriately positioned tubes. 2. Persistent bibasilar opacities, greater on the left, with more diffuse mild increase density of the right lung suggested. This is favored to represent pulmonary edema, although infection or aspiration are not excluded. Assessment & Plan Reason Critically Ill: Patient is critically ill due to hypercarbic respiratory failure in the setting of chronic hypercapnic respiratory failure and morbid obesity with presumptive obesity hypoventilation syndrome. PLAN: Neuro: Changed continuous to sedation to intermittent bolus sedation in an effort to increase RASS score to 0--1 Resp: Acute on chronic hypercarbic respiratory failure * Patient's baseline pH likely near 7.33 based on calculations with bicarb in 40s CV: Mildly dilated right ventricle * Concern for cor pulmonale secondary to likely multiple etiologies * Likely obesity hypoventilation syndrome * Patient noncompliant with CPAP * Newly diagnosed DVT, unclear if patient has pulmonary embolism * Empiric heparin infusion Right bundle branch block * Troponins negative 1, largely unremarkable BNP Fluids/Renal: Elevated creatinine * Unknown baseline ID: Chronic cellulitis of lower extremities * Empiric Zosyn and vancomycin * Wound culture of right lower extremity was obtained, reviewed results at this time however unclear clinical significance of surface culture GI/Nutrition: Morbid obesity * Would benefit from outpatient follow-up with dietitian Heme: Left lower extremity venous thromboembolism * Heparin infusion Endocrine: Elevated hemoglobin A1c Hyperglycemia * ICU insulin protocol Vascular access: Patient has tenuous IV access, I have consented the patient for a PICC. * Initial right-sided PICC was unsuccessful, PICC team attempting left side CODE STATUS: Discussed briefly with as he has not had any discussion regarding long-term goals of care, full code I have personally spent 90 minutes of critical care time in the direct management of this patient. This is a life/limb threatening event. This includes time spent evaluating patient, direct bedside care, chart review, placing orders, interpretation of diagnostic studies, discussion with consultants, patient, and/or family members regarding treatment decisions, as well as other required patient management activities. This time is exclusive of all separately billable procedures, and teaching time and separate from and in addition to any other critical care service time.
[2017-05-10] MEDS: HEPARIN 25,000 UNIT/500ML D5W 500 ML IV PRN ×3 (13:36→23:55)
--- NOTE | 2017-05-10 16:02 | Medical Student: [facility] ---
Med Student Progress Note Date of Service May 10, 2017. Subjective Pt evaluation today including: physical exam, chart review, lab review, review of studies Voiding: rico catheter in place Pt is a 71 year old male with hx of DM, morbid obesity, HTN, CHF who is here for increased SOB and cellulitis worsening at [facility]. Pt was admitted overnight. Nurse notes that pt's sedation was turned off and they are waiting for pt to wake-up. Wound care consulted for the cellulitis of the R leg. Cultures obtained. Doppler done showed venous thrombosis of the L leg. Review of Systems Notes: Unable to obtain due to pt status Objective Vital Signs Date Time Temp Pulse Resp B/P (MAP) Pulse Ox O2 Delivery O2 Flow Rate FiO2 05/10/17 12:06 83 19 134/63 (86) 100 CPAP 50 Mechanical Ventilator 05/10/17 12:00 Mechanical Ventilator 50 05/10/17 11:18 50 05/10/17 10:00 78 16 116/51 (72) 90 CPAP 50 Mechanical Ventilator 05/10/17 08:00 Mechanical Ventilator 50 05/10/17 08:00 Mechanical Ventilator 50 05/10/17 08:00 37.2 80 13 121/54 (76) 97 Mechanical Ventilator 50 05/10/17 08:00 50 05/10/17 07:34 50 05/10/17 06:46 83 13 107/50 (69) 97 05/10/17 06:31 86 12 127/57 (80) 100 05/10/17 06:16 76 12 125/57 (79) 100 05/10/17 06:15 50 05/10/17 06:01 79 16 109/52 (71) 99 05/10/17 05:51 73 16 115/53 (73) 98 05/10/17 05:46 70 16 109/50 (69) 99 05/10/17 05:45 70 16 109/50 (69) 99 50 05/10/17 05:41 71 16 106/52 (70) 99 05/10/17 05:41 71 16 106/52 (70) 99 05/10/17 05:36 73 16 94/48 (63) 91 05/10/17 05:36 73 16 94/48 (63) 91 05/10/17 05:31 73 16 94/47 (63) 94 2/26/18 05:31 73 16 94/47 (63) 94 05/10/17 05:30 73 16 94 05/10/17 05:30 73 16 94 05/10/17 05:26 73 16 88/44 (59) 94 05/10/17 05:21 73 16 82/43 (56) 90 05/10/17 05:16 73 16 85/43 (57) 93 05/10/17 05:16 73 16 85/43 (57) 93 05/10/17 05:15 72 16 94 05/10/17 05:11 72 16 79/41 (54) 87 05/10/17 05:06 73 16 73/41 (52) 91 05/10/17 05:05 72 16 68/37 (47) 90 05/10/17 05:01 73 16 91 05/10/17 05:00 73 16 73/39 (50) 91 05/10/17 04:56 66 16 70/45 (53) 90 05/10/17 04:54 73 16 65/37 (46) 05/10/17 04:53 74 16 66/36 (46) 92 05/10/17 04:51 72 16 90 05/10/17 04:50 73 16 75/40 (52) 91 05/10/17 04:46 72 16 75/37 (50) 91 05/10/17 04:41 75 16 94 05/10/17 04:38 75 16 91/45 (60) 95 05/10/17 04:36 76 16 93 05/10/17 04:35 76 16 63/30 (41) 94 05/10/17 04:32 77 16 81/39 (53) 96 05/10/17 04:31 76 16 91 05/10/17 04:26 77 16 96 05/10/17 04:21 77 16 99/47 (64) 96 05/10/17 04:21 77 16 99/47 (64) 96 05/10/17 04:17 79 16 97/50 (66) 96 05/10/17 04:16 80 16 95 05/10/17 04:12 79 16 88/55 (66) 95 05/10/17 04:11 79 16 05/10/17 04:10 79 16 130/108 (115) 05/10/17 04:06 77 16 96 05/10/17 04:01 77 18 96 05/10/17 04:00 75 16 81/36 (51) 98 05/10/17 03:58 76 16 70/51 (57) 95 05/10/17 03:56 75 16 64/44 (51) 97 05/10/17 03:51 73 16 73/34 (47) 94 05/10/17 03:46 76 16 56/31 (39) 90 05/10/17 03:45 75 17 65/29 (41) 91 05/10/17 03:44 76 13 60/33 (42) 91 05/10/17 03:41 77 16 60/31 (41) 92 05/10/17 03:36 80 16 63/32 (42) 92 05/10/17 03:35 80 16 63/30 (41) 92 05/10/17 03:31 84 16 65/33 (44) 93 05/10/17 03:26 87 16 83/40 (54) 97 05/10/17 03:26 87 16 83/40 (54) 97 05/10/17 03:25 88 16 96 05/10/17 03:22 88 16 101/73 (82) 96 05/10/17 03:20 91 16 95 05/10/17 03:17 95 16 123/58 (79) 91 05/10/17 03:15 95 11 93 05/10/17 03:11 95 0 113/62 (79) 93 05/10/17 03:10 94 24 93 05/10/17 03:06 96 0 125/63 (83) 97 05/10/17 03:05 96 0 96 05/10/17 03:03 98 0 100/78 (85) 89 05/10/17 03:00 50 05/10/17 03:00 93 9 95 05/10/17 02:56 93 23 126/66 (86) 77 05/10/17 02:55 96 27 69 05/10/17 02:54 94 24 99/55 (70) 76 05/10/17 02:52 92 23 136/117 (123) 79 05/10/17 02:50 90 15 100 05/10/17 02:46 90 19 123/67 (85) 94 05/10/17 02:45 91 10 05/10/17 01:13 88 94 05/10/17 00:00 99 BiPAP 50 05/09/17 23:33 37.2 85 23 116/48 (70) 99 CPAP 50 05/09/17 22:03 83 95 05/09/17 21:15 37.2 85 20 111/65 95 BiPAP Physical Exam General Appearance: + obese Respiratory/Chest: chest non-tender, + wheezing (Mild expiratory wheezes) Cardiovascular: regular rate, rhythm, no murmur Abdomen: normal bowel sounds, soft Extremities: + pedal edema (3+), + pertinent finding (R LE circumfrential wound on calf. ) Skin: warm/dry Laboratory Results Last 24 Hours Test 05/09/17 22:23 05/09/17 22:37 05/09/17 22:50 05/09/17 23:06 Bedside Glucose 151 mg/dl Urine Color YELLOW Urine Appearance CLEAR Urine pH 5.0 Urine Specific [place] 1.019 Urine Protein TRACE Urine Glucose (UA) NEG Urine Ketones NEG Urine Occult Blood 1+ Urine Nitrite NEG Urine Bilirubin NEG Urine Urobilinogen NEG Urine Leukocyte Esterase MODERATE Urine WBC (Auto) 5-10 /hpf Urine RBC (Auto) 10-30 /hpf Urine Hyaline Casts (Auto) 1-5 /lpf Urine Epithelial Cells (Auto) 20-30 /lpf Urine Bacteria (Auto) NEG White Blood Count 8.83 K/uL Red Blood Count 4.06 M/uL Hemoglobin 12.3 g/dL Hematocrit 39.9 % Mean Corpuscular Volume 98.3 fL Mean Corpuscular Hemoglobin 30.3 pg Mean Corpuscular Hemoglobin Concent 30.8 g/dl Platelet Count 198 K/uL Mean Platelet Volume 9.6 fL Neutrophils (%) (Auto) 79.6 % Lymphocytes (%) (Auto) 11.1 % Monocytes (%) (Auto) 6.2 % Eosinophils (%) (Auto) 2.6 % Basophils (%) (Auto) 0.2 % Neutrophils # (Auto) 7.02 K/uL Lymphocytes # (Auto) 0.98 K/uL Monocytes # (Auto) 0.55 K/uL Eosinophils # (Auto) 0.23 K/uL Basophils # (Auto) 0.02 K/uL RDW Standard Deviation 54.6 fL RDW Coefficient of Variation 15.3 % Immature Granulocyte % (Auto) 0.3 % Immature Granulocyte # (Auto) 0.03 K/uL Prothrombin Time 11.6 SECONDS Prothromb Time International Ratio 1.1 Sodium Level 137 mmol/L Potassium Level 4.5 mmol/L Chloride Level 98 mmol/L Carbon Dioxide Level 39 mmol/L Anion Gap 1.0 mmol/L Blood Urea Nitrogen 31 mg/dl Creatinine 1.47 mg/dl Est Creatinine Clear Calc Drug Dose 84.7 ml/min Estimated GFR () 55.2 Estimated GFR (Non- 47.7 BUN/Creatinine Ratio 21.2 Random Glucose 142 mg/dl Estimated Average Glucose 151 mg/dl Hemoglobin A1c 6.9 % Calcium Level 8.0 mg/dl Phosphorus Level 3.8 mg/dl Magnesium Level 1.9 mg/dl Total Bilirubin 0.5 mg/dl Aspartate Amino Transf (AST/SGOT) 21 U/L Alanine Aminotransferase (ALT/SGPT) 22 U/L Alkaline Phosphatase 50 U/L Troponin I < 0.015 ng/ml Total Protein 7.6 gm/dl Albumin 2.3 gm/dl Globulin 5.3 gm/dl Albumin/Globulin Ratio 0.4 Hepatitis C Antibody Screen NEG Arterial Blood pH 7.27 Arterial Blood Partial Pressure CO2 81 mmHg Arterial Blood Partial Pressure O2 89 mm/Hg Arterial Blood HCO3 36 mmol/L Arterial Blood Oxygen Saturation 95.0 % Arterial Blood Base Excess 6.2 mEq/L Arterial Blood Gas Delivery 50% Colin Test POS Test 05/10/17 02:12 05/10/17 04:34 05/10/17 06:04 05/10/17 06:39 Blood Gas Sample Site L Radial L Radial L Radial Bedside Blood Gas pH (LAB) 7.22 7.45 7.48 Bedside Blood Gas pCO2 (LAB) 97 mmHg 60 mmHg 51 mmHg Bedside Blood Gas pO2 (LAB) 88 mmHg 67 mmHg 84 mmHg Bedside Blood Gas HCO3 (LAB) 40 meq/L 41 meq/L 38 meq/L Bedside Blood Gas Total CO2 > 40 mEq/l > 40 mEq/l > 40 mEq/l Bedside Blood Gas Base Excess (LAB) 12.0 meq/L 17.0 meq/L 15.0 meq/L Bedside Blood Gas O2 Saturation 93.0 % 93.0 % 97.0 % Colin Test Pass Pass Pass Oxygen Delivery Device BIPAP Ventilator Ventilator Bedside Oxygen Rate (breaths/min) 20 16 16 Bedside FiO2 50 % 50 % 50 % Blood Gas IPAP 20 Blood Gas Minute Ventilation 9.8 8 Blood Gas Tidal Volume 650 550 Blood Gas PEEP 5 5 Bedside Glucose 156 mg/dl Test 05/10/17 07:31 05/10/17 09:15 05/10/17 09:30 05/10/17 11:11 Random Vancomycin Level 22.5 mcg/ml Influenza Type A (RT-PCR) Neg for Influ A Influenza Type B (RT-PCR) Neg for Influ B Pro-B-Type Natriuretic Peptide 392 pg/ml Procalcitonin 0.09 ng/ml Blood Gas Sample Site L Radial Bedside Blood Gas pH (LAB) 7.31 Bedside Blood Gas pCO2 (LAB) 81 mmHg Bedside Blood Gas pO2 (LAB) 86 mmHg Bedside Blood Gas HCO3 (LAB) 40 meq/L Bedside Blood Gas Total CO2 > 40 mEq/l Bedside Blood Gas Base Excess (LAB) 14.0 meq/L Bedside Blood Gas O2 Saturation 95.0 % Colin Test Pass Oxygen Delivery Device Ventilator Bedside FiO2 50 % Blood Gas PEEP 5 Test 05/10/17 11:24 White Blood Count 8.07 K/uL Red Blood Count 3.88 M/uL Hemoglobin 11.8 g/dL Hematocrit 39.1 % Mean Corpuscular Volume 100.8 fL Mean Corpuscular Hemoglobin 30.4 pg Mean Corpuscular Hemoglobin Concent 30.2 g/dl Platelet Count 178 K/uL Mean Platelet Volume 9.6 fL Neutrophils (%) (Auto) 78.8 % Lymphocytes (%) (Auto) 10.0 % Monocytes (%) (Auto) 7.7 % Eosinophils (%) (Auto) 3.2 % Basophils (%) (Auto) 0.1 % Neutrophils # (Auto) 6.35 K/uL Lymphocytes # (Auto) 0.81 K/uL Monocytes # (Auto) 0.62 K/uL Eosinophils # (Auto) 0.26 K/uL Basophils # (Auto) 0.01 K/uL RDW Standard Deviation 55.9 fL RDW Coefficient of Variation 15.3 % Immature Granulocyte % (Auto) 0.2 % Immature Granulocyte # (Auto) 0.02 K/uL Basophilic Stippling 1+ Prothrombin Time 11.5 SECONDS Prothromb Time International Ratio 1.1 Activated Partial Thromboplast Time 25.1 SECONDS Partial Thromboplastin Ratio 1.0 Assessment and Plan Assessment and Plan: Pt is a 71 year old male with hx of DM, morbid obesity, HTN, CHF who is here for increased SOB and cellulitis worsening at [facility]. Wound cultures positive for gram negative bacilli and Corynebacterium. Blood cultures and urine cultures pending. Doppler done on 05/10/17 showed venous thrombosis of the L leg. Echo done on 05/10/17 showed: The left ventricle is borderline dilated. Left ventricular systolic function is normal. The right ventricle is mildly dilated. The right ventricular systolic function is borderline reduced. Right ventricular systolic pressure is normal. The inferior vena cava is mildly dilated. 1. Acute on chronic respiratory failure 2/2 obesity hypoventilation syndrome a. Sedation removed on pt, continue working towards weaning off ventilator 2. RLE Cellulitis a. Would culture obtained, sensitivities to follow b. Currently on Vancomycin + Zosyn, will tailor abx to sensitivities 3. DM a. Continue sliding scale insulin 4. UTI (diagnosed in [facility]) a. Urine culture pending b. Current abx coverage with Vancomycin + Zosyn 5. CHF a. Troponin negative, BNP normal b. continue home meds of furosemide and losartan 6. Glaucoma a. Continue home eye drops 7. DVT a. Heparin SC
[2017-05-10] MEDS ORDERED: NURSING VERBAL MED ORDER ONE (16:45)
[2017-05-10] MEDS: DexMEDEtomidine HCL IV 200 MCG in SODIUM CHLORIDE 0.9% 50ML 48 ML IV PRN (18:44)
[2017-05-10 20:30] LABS: PTT PATIENT 33.8 SECONDS (21.0-31.0)
--- NOTE | 2017-05-10 21:03 | Procedure Note ---
Procedure Note Date of Service May 10, 2017. Procedure Note Procedure Date: May 10, 2017 Procedure: Endotracheal intubation Pre-procedure Diagnosis: Acute encephalopathy secondary to hypercarbic respiratory failure Post-procedure Diagnosis: same as above Prior to Procedure: Informed Consent: emergent Attending Staff: Markie Jalloh DO Indications: Patient is a morbidly obese BMI greater than 60 male with a history of tobacco abuse likely COPD with obesity hypoventilation syndrome who was extubated earlier after correction of his hypercarbia. Patient subsequently became acutely hypercarbic again and exhibited signs of acute encephalopathy and was largely comatose. The identity of the patient was confirmed and a bedside time out was performed. Anesthesia: 100 mcg fentanyl IV, 2 mg Versed IV Description of Procedure: Patient was evaluated and required intubation for impending respiratory failure. The patient was prepared in the usual fashion. A glide scope was used. A 7.5 Fr endotrachial tube was placed endotracheally to 23 cm at the teeth. The endotracheal tube was noted to pass through the vocal cords. Chest rise was bilateral. Bilateral breath sounds were heard without air sounds in the abdomen. Mist was noted in the endotracheal tube. End-tidal CO2 measurement was positive. Chest x-ray shows proper endotracheal tube placement. Complications: None Findings: not applicable possible aspiration, mucus sitting on top of the glottic opening Specimens: not applicable Estimated blood loss: Zero Chest x-ray was reviewed and the tube appeared to be in adequate position with the NG tube sitting below the diaphragm.
--- NOTE | 2017-05-10 21:13 | DIAGNOSTIC IMAGING REPORT ---
CHEST ONE VIEW PORTABLE HISTORY: ET tube placement COMPARISON: Chest 05/10/2017. FINDINGS: The left PICC does not cross the midline and terminates adjacent to the aortic knob. Statistically this is within the left brachiocephalic vein. Nasogastric tube terminates below the diaphragm. The tip is not included on this study. Endotracheal tube terminates approximately 6.6 cm from the perlita. No pleural effusions. No pneumothorax. The right costophrenic angle is not included on this study. Bibasilar densities have improved. The heart remains mildly enlarged. IMPRESSION: 1. The endotracheal tube terminates 6.6 cm from the perlita. This could be advanced by approximately 2-3 cm. 2. Nasogastric tube terminates below the diaphragm. 3. The left PICC terminates at the level of the aortic knob. Statistically this is within the left brachiocephalic vein. This could be advanced by 5 to 7 cm to reside within the SVC. 4. Patchy bibasilar densities have slightly improved. Electronically signed by: Zeeshan Matos M.D. 05/10/2017 9:11 PM Dictated Date/Time: 05/10/2017 9:08 PM
[2017-05-10] MEDS: METHYLPREDNISOLONE IV 40 MG in SYRINGE 0 ML IV SCH (21:23)
--- NOTE | 2017-05-10 21:38 | Critical Care Progress Note ---
Critical Care Progress Note Date of Service May 10, 2017. Critical Care Progress Note A scheduled ABG for 1999 was given to me that demonstrated worsening respiratory status for Mr. Hagen. I spoke with Dr. Jalloh in regards to increasing CO2 levels. Pt was minimally responsive to sternal rub and the decision to intubate was made. Pt received 100mcg of Fentanyl and 2 of Versed for intubation. Pt intially placed on SIMV. However, respiratory later noted that pt was not breathing over the vent under the influence of the prior sedatives. He was riding the ventilator rate of 10 with an I:E of 1.0:7.7 End Tidal CO2 was reading 101. Pt rate was increased to 15 and other vent settings improved. An additional ABG was ordered for 1 hour later. Continue to trend Endtidal CO2 No restraints at this time Continue PRN Sedation with GOAL RASS 0 to -2 Repeat ABG and titrate vent per protocol Additional Critical Care time: 35 minutes I have personally evaluated and examined this patient. I agree with assessment and plan of Hannah Dan PA-C. Additionally I evaluated the patient, he became much more obtunded requiring intubation please see follow-up intubation note
[2017-05-10] MEDS ORDERED: VANCOMYCIN INJ 2,500 MG in SODIUM CHLORIDE 0.9% 500ML 500 ML IV SCH (22:00)
[2017-05-10] MEDS ORDERED: HEPARIN IV BOLUS 10,000 UNIT in SYRINGE 0 ML IV ONE (22:00)
[2017-05-10] MEDS: FENTANYL CITRATE INJ 50 MCG/1 ML 2 ML VIAL IV PRN (22:58)
[2017-05-10] MEDS: MIDAZOLAM HCL 1 MG/ML 2ML VIAL IV PRN (22:58)
--- NOTE | 2017-05-10 23:03 | Progress Note ---
Subjective Date of Service: May 10, 2017. Subjective Pt evaluation today including: physical exam Pt is a 71 year old male with hx of DM, morbid obesity, HTN, CHF who is here for increased SOB and cellulitis worsening at [facility]. Pt was admitted overnight. Nurse notes that pt's sedation was turned off and they are waiting for pt to wake-up. Since patient is sedated, unable to obtain history and ROS. Review of Systems All Other Systems: Reviewed and Negative Medications Current Inpatient Medications Medications (Trade) Dose Ordered Sig/Kathe Route Start Time Stop Time Status Last Admin Dose Admin Ondansetron HCl (Zofran Inj) 4 mg Q6H PRN IV 05/09/17 22:00 06/08/17 21:59 05/10/17 04:24 4 MG Nitroglycerin (Nitrostat Tab) 0.4 mg UD PRN SL 05/09/17 22:00 06/08/17 21:59 Glucose (Glucose 40% Gel) 15-30 GRAMS 15 GRAMS... UD PRN PO 05/09/17 22:00 06/08/17 21:59 Glucose (Glucose Chew Tab) 4-8 Tablets 4 Tabl... UD PRN PO 05/09/17 22:00 06/08/17 21:59 Dextrose (Dextrose 50% 50ML Syringe) 25-50ML OF 50% DW IV FOR... UD PRN IV 05/09/17 22:00 06/08/17 21:59 Glucagon (Glucagon Inj) 1 mg UD PRN SQ 05/09/17 22:00 06/08/17 21:59 Miscellaneous Information (Consult) 1 ea UD PRN N/A 05/09/17 22:30 06/08/17 22:29 Miscellaneous Information (Order Awaiting Action) 1 ea QS N/A 05/10/17 00:00 06/09/17 00:00 Piperacillin Sod/ Tazobactam Sod 4.5 gm/Dextrose 120 ml @ 30 mls/hr Q8H IV 05/10/17 04:00 05/16/17 23:59 05/10/17 04:25 30 MLS/HR Fentanyl Citrate (Fentanyl Inj) 100 mcg Q2H PRN IV 05/10/17 08:45 05/24/17 08:44 05/10/17 17:29 100 MCG Midazolam HCl (Versed Inj) 2 mg Q2H PRN IV 05/10/17 08:45 06/09/17 08:44 05/10/17 17:29 2 MG Famotidine 20 mg/ Syringe 5 ml @ 2.5 mls/min Q12 IV 05/10/17 09:30 06/09/17 09:29 05/10/17 20:21 2.5 MLS/MIN Ascorbic Acid (Vitamin C Tab) 500 mg QAM PO 05/10/17 09:00 06/09/17 08:59 05/10/17 09:05 500 MG Zinc Sulfate (Zinc Sulfate Cap) 220 mg QAM PO 05/10/17 09:00 06/09/17 08:59 05/10/17 08:05 220 MG Multivitamins Therapeutic (Cerovite Liquid) 15 ml QAM PO 05/10/17 09:00 06/09/17 08:59 05/10/17 08:04 15 ML Objective Vital Signs Date Time Temp Pulse Resp B/P (MAP) Pulse Ox O2 Delivery O2 Flow Rate FiO2 05/10/17 22:16 85 20 115/58 (77) 96 Mechanical Ventilator 05/10/17 20:00 BiPAP 05/10/17 19:15 87 24 115/58 (77) 94 CPAP 05/10/17 19:00 91 100 100 05/10/17 17:45 111 94 100 05/10/17 16:00 88 20 114/51 (72) 88 CPAP 4.0 Mechanical Ventilator 05/10/17 16:00 Diffusion Mask 05/10/17 14:11 81 20 114/51 (72) 96 CPAP 50 Mechanical Ventilator 05/10/17 12:06 83 19 134/63 (86) 100 CPAP 50 Mechanical Ventilator 05/10/17 12:00 Mechanical Ventilator 50 05/10/17 11:18 50 05/10/17 10:00 78 16 116/51 (72) 90 CPAP 50 Mechanical Ventilator 05/10/17 08:00 Mechanical Ventilator 50 05/10/17 08:00 Mechanical Ventilator 50 05/10/17 08:00 37.2 80 13 121/54 (76) 97 Mechanical Ventilator 50 05/10/17 08:00 50 05/10/17 07:34 50 05/10/17 06:46 83 13 107/50 (69) 97 05/10/17 06:31 86 12 127/57 (80) 100 05/10/17 06:16 76 12 125/57 (79) 100 05/10/17 06:15 50 05/10/17 06:01 79 16 109/52 (71) 99 05/10/17 05:51 73 16 115/53 (73) 98 05/10/17 05:46 70 16 109/50 (69) 99 05/10/17 05:45 70 16 109/50 (69) 99 50 05/10/17 05:41 71 16 106/52 (70) 99 05/10/17 05:41 71 16 106/52 (70) 99 05/10/17 05:36 73 16 94/48 (63) 91 05/10/17 05:36 73 16 94/48 (63) 91 05/10/17 05:31 73 16 94/47 (63) 94 05/10/17 05:31 73 16 94/47 (63) 94 05/10/17 05:30 73 16 94 05/10/17 05:30 73 16 94 05/10/17 05:26 73 16 88/44 (59) 94 05/10/17 05:21 73 16 82/43 (56) 90 05/10/17 05:16 73 16 85/43 (57) 93 05/10/17 05:16 73 16 85/43 (57) 93 05/10/17 05:15 72 16 94 05/10/17 05:11 72 16 79/41 (54) 87 05/10/17 05:06 73 16 73/41 (52) 91 05/10/17 05:05 72 16 68/37 (47) 90 05/10/17 05:01 73 16 91 05/10/17 05:00 73 16 73/39 (50) 91 05/10/17 04:56 66 16 70/45 (53) 90 05/10/17 04:54 73 16 65/37 (46) 05/10/17 04:53 74 16 66/36 (46) 92 05/10/17 04:51 72 16 90 05/10/17 04:50 73 16 75/40 (52) 91 05/10/17 04:46 72 16 75/37 (50) 91 05/10/17 04:41 75 16 94 05/10/17 04:38 75 16 91/45 (60) 95 05/10/17 04:36 76 16 93 05/10/17 04:35 76 16 63/30 (41) 94 05/10/17 04:32 77 16 81/39 (53) 96 05/10/17 04:31 76 16 91 05/10/17 04:26 77 16 96 05/10/17 04:21 77 16 99/47 (64) 96 05/10/17 04:21 77 16 99/47 (64) 96 05/10/17 04:17 79 16 97/50 (66) 96 05/10/17 04:16 80 16 95 05/10/17 04:12 79 16 88/55 (66) 95 05/10/17 04:11 79 16 05/10/17 04:10 79 16 130/108 (115) 05/10/17 04:06 77 16 96 05/10/17 04:01 77 18 96 05/10/17 04:00 75 16 81/36 (51) 98 05/10/17 03:58 76 16 70/51 (57) 95 05/10/17 03:56 75 16 64/44 (51) 97 05/10/17 03:51 73 16 73/34 (47) 94 05/10/17 03:46 76 16 56/31 (39) 90 05/10/17 03:45 75 17 65/29 (41) 91 05/10/17 03:44 76 13 60/33 (42) 91 05/10/17 03:41 77 16 60/31 (41) 92 05/10/17 03:36 80 16 63/32 (42) 92 05/10/17 03:35 80 16 63/30 (41) 92 05/10/17 03:31 84 16 65/33 (44) 93 05/10/17 03:26 87 16 83/40 (54) 97 05/10/17 03:26 87 16 83/40 (54) 97 05/10/17 03:25 88 16 96 05/10/17 03:22 88 16 101/73 (82) 96 05/10/17 03:20 91 16 95 05/10/17 03:17 95 16 123/58 (79) 91 05/10/17 03:15 95 11 93 05/10/17 03:11 95 0 113/62 (79) 93 05/10/17 03:10 94 24 93 05/10/17 03:06 96 0 125/63 (83) 97 05/10/17 03:05 96 0 96 05/10/17 03:03 98 0 100/78 (85) 89 05/10/17 03:00 50 05/10/17 03:00 93 9 95 05/10/17 02:56 93 23 126/66 (86) 77 05/10/17 02:55 96 27 69 05/10/17 02:54 94 24 99/55 (70) 76 05/10/17 02:52 92 23 136/117 (123) 79 05/10/17 02:50 90 15 100 05/10/17 02:46 90 19 123/67 (85) 94 05/10/17 02:45 91 10 05/10/17 01:13 88 94 05/10/17 00:00 99 BiPAP 50 05/09/17 23:33 37.2 85 23 116/48 (70) 99 CPAP 50 Physical Exam Comments: Head: normocephalic Eyes: PERRLA ENT: Endotracheal tube in place Neck: no tenderness, trachea midline, no stridor, no nuchal rigidity Respiratory: distant breath sounds Cardiovasular: regular rate/rhythm, distant heart sounds Abdomen: nontender to palpation Genitourinary - Male: rico placed Lower Extremities: edema (+2), dresing on right lower extremity placed. Edema: Bilateral LE (2+) Neuro: sedated. Laboratory Results Last 24 Hours Test 05/09/17 23:06 05/10/17 02:12 05/10/17 04:34 05/10/17 06:04 Arterial Blood pH 7.27 Arterial Blood Partial Pressure CO2 81 mmHg Arterial Blood Partial Pressure O2 89 mm/Hg Arterial Blood HCO3 36 mmol/L Arterial Blood Oxygen Saturation 95.0 % Arterial Blood Base Excess 6.2 mEq/L Arterial Blood Gas Delivery 50% Colin Test POS Pass Pass Pass Blood Gas Sample Site L Radial L Radial L Radial Bedside Blood Gas pH (LAB) 7.22 7.45 7.48 Bedside Blood Gas pCO2 (LAB) 97 mmHg 60 mmHg 51 mmHg Bedside Blood Gas pO2 (LAB) 88 mmHg 67 mmHg 84 mmHg Bedside Blood Gas HCO3 (LAB) 40 meq/L 41 meq/L 38 meq/L Bedside Blood Gas Total CO2 > 40 mEq/l > 40 mEq/l > 40 mEq/l Bedside Blood Gas Base Excess (LAB) 12.0 meq/L 17.0 meq/L 15.0 meq/L Bedside Blood Gas O2 Saturation 93.0 % 93.0 % 97.0 % Oxygen Delivery Device BIPAP Ventilator Ventilator Bedside Oxygen Rate (breaths/min) 20 16 16 Bedside FiO2 50 % 50 % 50 % Blood Gas IPAP 20 Blood Gas Minute Ventilation 9.8 8 Blood Gas Tidal Volume 650 550 Blood Gas PEEP 5 5 Test 05/10/17 06:39 05/10/17 07:31 05/10/17 09:15 05/10/17 09:30 Bedside Glucose 156 mg/dl Random Vancomycin Level 22.5 mcg/ml Influenza Type A (RT-PCR) Neg for Influ A Influenza Type B (RT-PCR) Neg for Influ B Pro-B-Type Natriuretic Peptide 392 pg/ml Procalcitonin 0.09 ng/ml Test 05/10/17 11:11 05/10/17 11:24 05/10/17 13:48 05/10/17 17:31 Blood Gas Sample Site L Radial L Radial Bedside Blood Gas pH (LAB) 7.31 7.26 Bedside Blood Gas pCO2 (LAB) 81 mmHg 92 mmHg Bedside Blood Gas pO2 (LAB) 86 mmHg 61 mmHg Bedside Blood Gas HCO3 (LAB) 40 meq/L 41 meq/L Bedside Blood Gas Total CO2 > 40 mEq/l > 40 mEq/l Bedside Blood Gas Base Excess (LAB) 14.0 meq/L 14.0 meq/L Bedside Blood Gas O2 Saturation 95.0 % 84.0 % Colin Test Pass Pass Oxygen Delivery Device Ventilator Other Bedside FiO2 50 % 0 % Blood Gas PEEP 5 White Blood Count 8.07 K/uL Red Blood Count 3.88 M/uL Hemoglobin 11.8 g/dL Hematocrit 39.1 % Mean Corpuscular Volume 100.8 fL Mean Corpuscular Hemoglobin 30.4 pg Mean Corpuscular Hemoglobin Concent 30.2 g/dl Platelet Count 178 K/uL Mean Platelet Volume 9.6 fL Neutrophils (%) (Auto) 78.8 % Lymphocytes (%) (Auto) 10.0 % Monocytes (%) (Auto) 7.7 % Eosinophils (%) (Auto) 3.2 % Basophils (%) (Auto) 0.1 % Neutrophils # (Auto) 6.35 K/uL Lymphocytes # (Auto) 0.81 K/uL Monocytes # (Auto) 0.62 K/uL Eosinophils # (Auto) 0.26 K/uL Basophils # (Auto) 0.01 K/uL RDW Standard Deviation 55.9 fL RDW Coefficient of Variation 15.3 % Immature Granulocyte % (Auto) 0.2 % Immature Granulocyte # (Auto) 0.02 K/uL Basophilic Stippling 1+ Prothrombin Time 11.5 SECONDS Prothromb Time International Ratio 1.1 Activated Partial Thromboplast Time 25.1 SECONDS Partial Thromboplastin Ratio 1.0 Bedside Glucose 133 mg/dl Test 05/10/17 18:15 05/10/17 20:06 05/10/17 20:30 05/10/17 22:11 Blood Gas Sample Site L Radial R Radial Bedside Blood Gas pH (LAB) 7.28 7.22 Bedside Blood Gas pCO2 (LAB) 85 mmHg 97 mmHg Bedside Blood Gas pO2 (LAB) 65 mmHg 83 mmHg Bedside Blood Gas HCO3 (LAB) 40 meq/L 40 meq/L Bedside Blood Gas Total CO2 > 40 mEq/l > 40 mEq/l Bedside Blood Gas Base Excess (LAB) 13.0 meq/L 12.0 meq/L Bedside Blood Gas O2 Saturation 88.0 % 92.0 % Colin Test Pass Pass Activated Partial Thromboplast Time 33.8 SECONDS Partial Thromboplastin Ratio 1.3 Oxygen Delivery Device BIPAP Bedside Oxygen Rate (breaths/min) 27 Bedside FiO2 45 % Blood Gas IPAP 20 Test 05/10/17 22:42 Blood Gas Sample Site R Radial Bedside Blood Gas pH (LAB) 7.22 Bedside Blood Gas pCO2 (LAB) 98 mmHg Bedside Blood Gas pO2 (LAB) 84 mmHg Bedside Blood Gas HCO3 (LAB) 40 meq/L Bedside Blood Gas Total CO2 > 40 mEq/l Bedside Blood Gas Base Excess (LAB) 13.0 meq/L Bedside Blood Gas O2 Saturation 93.0 % Colin Test Pass Oxygen Delivery Device Ventilator Bedside Oxygen Rate (breaths/min) 17 Blood Gas Minute Ventilation 9.3 Bedside FiO2 40 % Blood Gas Tidal Volume 500 Blood Gas PEEP 15 Bl Gas Pressure Support Ventilation 10 Assessment and Plan Patient is a 71 year old male with a past medical history of Diabetes, Morbid Obesity, Hypertension, Chronic LE wound with cellulitis following with Dr. Acosta at wound clinic, and CHF that presents fro [facility] with worsening shortness of breath and lower extremity cellulitis Acute Hypoxic Respiratory Failure likely obesity hypoventilation syndrome BMI is 66 - DANA/ [place] for cor pulmonale secondary to likely multiple etiologies -Patient remains critically ill -Patient's baseline pH likely near 7.33 based on calculations with bicarb in 40s -currently 7.22 - Currently intubated, plan is do to a trial of extubation and place on BIPAP. -Concern that patient may not do well and may possible need a trach if he fails. - On Vanc + Zosyn - Blood Cultures pending - IV NS @ 100mls/hr - May require PICC placement tomorrow --> Difficulty getting access --> 20 in left hand and 22 in left shoulder UTI - Urinalysis from [facility] - Leuk Est, Nit, WBC positive - Repeat UA, Urine Culture - Antibiotics as above - Rico catheter in place Left lower extremity venous thromboembolism * Heparin infusion Cellulitis/ Chronic Right Lower Extremity Wound - Antibiotics as above - Wound Culture - Wound care consult with Dr. Acosta - Wound Care nurse - Currently dressed with Vaseline, Gauze, Kerlex, and WILLIAM wrap - Continue home Tramadol DM - Hold home metformin - ISS with BSG checks AC/HS CHF - Lasix 40mg PO BID Glaucoma - Continue Prednisolone Opth drops Right bundle branch block * Troponins negative 1, largely unremarkable BNP DVT - Heparin infusion Code Status - Full Resuscitation Continued [facility] stay due to: multiple IV medications needed Discharge planning: uncertain
[2017-05-11] VITALS (15 sets, daily range): BP systolic 92–137; BP diastolic 50–67; PULSE 57–77; TEMP 36.4–37.4; O2SAT 92–96
[2017-05-11] MEDS ORDERED: VANCOMYCIN INJ 2,000 MG in SODIUM CHLORIDE 0.9% 500ML 500 ML IV ONE ×2
[2017-05-11] MEDS ORDERED: VANCOMYCIN INJ 1,000 MG in SODIUM CHLORIDE 0.9% 250ML 250 ML IV SCH (01:00)
[2017-05-11] MEDS: METHYLPREDNISOLONE IV 40 MG in SYRINGE 0 ML IV SCH ×4 (01:36→19:32)
[2017-05-11] MEDS: PIPERACILL/TAZOBAC IV 4.5 GM in DEXTROSE 5% 100ML IV SCH ×3 (03:51→19:34)
[2017-05-11 04:04] LABS: HEMATOCRIT 39.3 % (42-52); HEMOGLOBIN 11.9 g/dL (14.0-18.0); MEAN CORPUSCULAR HEMOGLOBIN 30.3 pg (25-34); MEAN CORPUSCULAR HGB CONC 30.3 g/dl (32-36); MEAN PLATELET VOLUME 9.4 fL (7.4-10.4); PLATELET COUNT 162 K/uL (130-400); RED CELL DISTRIBUTION WIDTH CV 15.2 % (11.5-14.5); RED CELL DISTRIBUTION WIDTH SD 55.3 fL (36.4-46.3); WHITE BLOOD COUNT 8.37 K/uL (4.8-10.8)
[2017-05-11 04:23] LABS: CALCIUM 7.9 mg/dl (8.5-10.1); CREATININE 1.38 mg/dl (0.60-1.40); POTASSIUM 4.6 mmol/L (3.5-5.1)
[2017-05-11 04:25] LABS: PTT PATIENT 58.4 SECONDS (21.0-31.0)
[2017-05-11 04:34] LABS: PHOSPHORUS 3.4 mg/dl (2.5-4.9)
[2017-05-11] MEDS ORDERED: INSULIN ASPART 100 UNITS/ML 3 ML PEN SC SCH (06:30)
[2017-05-11] MEDS: INSULIN ASPART 100 UNITS/ML 3 ML PEN SC SCH ×4 (06:41→19:44)
--- NOTE | 2017-05-11 07:01 | DIAGNOSTIC IMAGING REPORT ---
CHEST ONE VIEW PORTABLE CLINICAL HISTORY: Intubation RESPIRATORY FAILURE COMPARISON STUDY: 05/10/2017 FINDINGS: There is an endotracheal tube with its tip 8 cm above the perlita. There is a nasogastric tube present the tip of which is difficult to discern but it appears to extend into the stomach. There is a left-sided PICC catheter which projects over the aortic knob. There is mild elevation of the interstitium. There is no lobar consolidation.[ IMPRESSION: 1. Endotracheal tube 8 cm above the perlita 2. Interstitial thickening. No evidence of lobar consolidation Electronically signed by: Alex Moe M.D. 05/11/2017 6:59 AM Dictated Date/Time: 05/11/2017 6:58 AM
[2017-05-11] MEDS: APRISO~ORDER AWAITING ACTION SCH ×2 (07:29→14:14)
[2017-05-11] MEDS ORDERED: ETOMIDATE 2 MG/ML 20 ML VIAL IV ONE (08:26)
[2017-05-11] MEDS ORDERED: SUCCINYLCHOLINE CHLORIDE 20 MG/ML 10 ML VIAL IV ONE (08:26)
[2017-05-11] MEDS: PROSOURCE NOCARB 30ML/PKT PO SCH ×2 (08:30→19:37)
[2017-05-11] MEDS: FAMOTIDINE IV INJ 20 MG in SYRINGE 3 ML IV SCH ×2 (08:30→19:36)
[2017-05-11] MEDS: ASCORBIC ACID 500 MG TAB PO SCH (08:30)
[2017-05-11] MEDS: ZINC SULFATE 220 MG CAP PO SCH (08:30)
[2017-05-11] MEDS: MULTIVITAMINS W/MINERALS 15ML UDP PO SCH (08:30)
[2017-05-11] MEDS ORDERED: PHARMACY GLYCEMIC MGMT CONSULT PRN (09:15)
[2017-05-11] MEDS ORDERED: INSULIN GLARGINE SOLOSTAR 100 UNITS/ML 3 ML PEN SC ONE ×2 (09:15→12:00)
[2017-05-11] MEDS: MODAFINIL 100 MG TAB PO SCH (09:27)
[2017-05-11] MEDS: DexMEDEtomidine HCL IV 200 MCG in SODIUM CHLORIDE 0.9% 50ML 48 ML IV PRN (09:28)
[2017-05-11] MEDS: VANCOMYCIN INJ 2,000 MG in SODIUM CHLORIDE 0.9% 500ML 500 ML IV SCH (11:09)
--- NOTE | 2017-05-11 11:27 | Palliative Care Consultation ---
Consultation Date of Consultation: May 11, 2017. Requesting Physician: Dr. Jalloh Attending Physician: Dr. Duran Reason for Consultation: Goals of care History of Present Illness This 71 year old male patient with PMH DM, morbid obesity, COPD, htn, chronic LE wounds and cellulitis, CHF, and others listed below, presented to [facility] from [facility] as a transfer for worsening SOB and respiratory failure. He was initially on Bipap and continued to decompensate eventually requiring intubation for his obesity related hypoventilatory syndrome. Family has been called to bedside to discuss goals of care options for treatment. Palliative care is consulted to be extra layer of support and help establish goals. Dr. Jalloh and I met with the patient, his son Emanuel Epps, daughter Mitzi, and Ghada at the bedside. Patient is intubated but not sedated. He seems to have his faculties and is able to write appropriately and respond to questions. Lengthy discussion was held in which Dr. Jalloh went over in detail about patient's medical problems including COPD, obese hypoventilatory syndrome, DVT, etc. We talked about goals of care and family is understanding that patient's chronic issues are never going to be "fixed." After lengthy talk, patient's family decided to move forward with trach. Patient is intubated but able to communicate by writing and is in agreement with plan as well. Past Medical/Surgical History Medical History: Morbid obesity Obstructive sleep apnea COPD Htn Chronic right lower extremity wound/cellulitis CHF Social History Smoking Status: Never Smoker History of Alcohol Use: No Drug Use: none Occupation Status: retired Review of Systems unable to obtain ROS due to intubation Allergies Coded Allergies: No Known Allergies (Unverified , 05/09/17) Medications Current Inpatient Medications Medications (Trade) Dose Ordered Sig/Kathe Route Start Time Stop Time Status Last Admin Dose Admin Ondansetron HCl (Zofran Inj) 4 mg Q6H PRN IV 05/09/17 22:00 06/08/17 21:59 Nitroglycerin (Nitrostat Tab) 0.4 mg UD PRN SL 05/09/17 22:00 06/08/17 21:59 Glucose (Glucose 40% Gel) 15-30 GRAMS 15 GRAMS... UD PRN PO 05/09/17 22:00 06/08/17 21:59 Glucose (Glucose Chew Tab) 4-8 Tablets 4 Tabl... UD PRN PO 05/09/17 22:00 06/08/17 21:59 Dextrose (Dextrose 50% 50ML Syringe) 25-50ML OF 50% DW IV FOR... UD PRN IV 05/09/17 22:00 06/08/17 21:59 Glucagon (Glucagon Inj) 1 mg UD PRN SQ 05/09/17 22:00 06/08/17 21:59 Miscellaneous Information (Consult) 1 ea UD PRN N/A 05/09/17 22:15 06/08/17 22:14 Miscellaneous Information (Consult) 1 ea UD PRN N/A 05/09/17 22:30 06/08/17 22:29 Miscellaneous Information (Order Awaiting Action) 1 ea QS N/A 05/10/17 00:00 06/09/17 00:00 Miscellaneous Information (Order Awaiting Action) 1 ea QS N/A 05/10/17 00:00 06/09/17 00:00 Piperacillin Sod/ Tazobactam Sod 4.5 gm/Dextrose 120 ml @ 30 mls/hr Q8H IV 05/10/17 04:00 05/12/17 03:59 05/11/17 11:09 30 MLS/HR Fentanyl Citrate (Fentanyl Inj) 100 mcg Q2H PRN IV 05/10/17 08:45 05/24/17 08:44 05/10/17 22:58 100 MCG Midazolam HCl (Versed Inj) 2 mg Q2H PRN IV 05/10/17 08:45 06/09/17 08:44 05/10/17 22:58 2 MG Famotidine 20 mg/ Syringe 5 ml @ 2.5 mls/min Q12 IV 05/10/17 09:30 06/09/17 09:29 05/11/17 08:30 2.5 MLS/MIN Enteral Nutritional Formula (Peptamen Intense VHP) 1,000 ml UD OG 05/10/17 09:00 06/09/17 08:59 05/10/17 09:53 1,000 ML Enteral Nutritional Formula (Prosource No Carb) 30 ml BID PO 05/10/17 09:00 06/09/17 08:59 05/11/17 08:30 30 ML Ascorbic Acid (Vitamin C Tab) 500 mg QAM PO 05/10/17 09:00 06/09/17 08:59 05/11/17 08:30 500 MG Zinc Sulfate (Zinc Sulfate Cap) 220 mg QAM PO 05/10/17 09:00 06/09/17 08:59 05/11/17 08:30 220 MG Multivitamins Therapeutic (Cerovite Liquid) 15 ml QAM PO 05/10/17 09:00 06/09/17 08:59 05/11/17 08:30 15 ML Heparin Sodium/ Dextrose 500 ml @ 56 mls/hr Q8H56M PRN IV 05/10/17 11:00 06/09/17 10:59 05/10/17 23:55 56 MLS/HR Dexmedetomidine HCl 200 mcg/ Sodium Chloride 50 ml @ 0 mls/hr Q0M PRN IV 05/10/17 18:09 05/14/17 18:08 05/11/17 09:28 5.2 MLS/HR Methylprednisolone Sodium Succinate 40 mg/Syringe 0.64 ml @ 1.5 mls/min Q6H IV 05/10/17 19:30 05/11/17 19:31 05/11/17 08:29 1.5 MLS/MIN Vancomycin HCl 2000 mg/Sodium Chloride 540 ml @ 200 mls/hr Q12@0000,1200 IV 05/11/17 12:00 05/11/17 23:29 05/11/17 11:09 200 MLS/HR Modafinil (proVIGIL TAB) 200 mg QAM PO 05/11/17 09:00 06/10/17 08:59 05/11/17 09:27 200 MG Miscellaneous Information (Consult Glycemic Management Pharmacy) 1 ea UD PRN N/A 05/11/17 09:15 06/10/17 09:14 Methylprednisolone Sodium Succinate 40 mg/Syringe 0.64 ml @ 1.5 mls/min Q12 IV 05/12/17 09:00 06/11/17 08:59 Insulin Aspart (novoLOG ASPART) SLIDING SCALE If C... Q4 SC 05/11/17 11:00 06/10/17 10:59 05/11/17 11:06 5 UNITS Insulin Glargine (Lantus Solostar Pen) QPM SC 05/11/17 21:00 05/12/17 08:59 Physical Exam Date Time Temp Pulse Resp B/P (MAP) Pulse Ox O2 Delivery O2 Flow Rate FiO2 05/11/17 10:00 71 14 101/57 (72) 95 CPAP 40 05/11/17 08:41 40 05/11/17 08:00 40 05/11/17 08:00 95 Mechanical Ventilator 40 05/11/17 08:00 37.0 65 22 117/59 (78) 95 Mechanical Ventilator 40 05/11/17 07:32 40 05/11/17 06:00 36.9 71 22 92/50 (64) 95 Mechanical Ventilator 40 05/11/17 05:45 40 05/11/17 04:00 40 05/11/17 04:00 36.9 71 22 118/59 (78) 94 Mechanical Ventilator 40 05/11/17 04:00 94 Mechanical Ventilator 40 05/11/17 03:31 40 05/11/17 02:00 37.4 68 22 121/67 (85) 95 Mechanical Ventilator 40 05/11/17 00:01 37.4 70 22 137/61 (86) 96 Mechanical Ventilator 40 05/10/17 23:59 95 Mechanical Ventilator 40 05/10/17 23:59 40 05/10/17 22:55 40 05/10/17 22:16 85 20 115/58 (77) 96 Mechanical Ventilator 05/10/17 21:07 40 05/10/17 20:00 BiPAP 05/10/17 19:15 87 24 115/58 (77) 94 CPAP 05/10/17 19:00 91 100 100 05/10/17 17:45 111 94 100 05/10/17 16:00 88 20 114/51 (72) 88 CPAP 4.0 Mechanical Ventilator 05/10/17 16:00 Diffusion Mask 05/10/17 14:11 81 20 114/51 (72) 96 CPAP 50 Mechanical Ventilator 05/10/17 12:06 83 19 134/63 (86) 100 CPAP 50 Mechanical Ventilator 05/10/17 12:00 Mechanical Ventilator 50 General Appearance: no apparent distress, + obese (morbidly) ENT: hearing grossly normal Neck: supple, no JVD Respiratory: no respiratory distress, no accessory muscle use, + pertinent finding (intubated on ventilator) Cardiovascular: regular rate, rhythm, + pertinent finding (+4 edema RLE, +2-3 to LLE) Abdomen: normal bowel sounds, non tender, soft Neurologic/Psychiatric: alert, + pertinent finding (unable to speak due to intubation) Skin: + pertinent finding (large macerated wound to RLE, see wound images in EMR) Laboratory Results Last 24 Hours Test 05/10/17 13:48 05/10/17 17:31 05/10/17 18:15 05/10/17 20:06 Bedside Glucose 133 mg/dl Blood Gas Sample Site L Radial L Radial Bedside Blood Gas pH (LAB) 7.26 7.28 Bedside Blood Gas pCO2 (LAB) 92 mmHg 85 mmHg Bedside Blood Gas pO2 (LAB) 61 mmHg 65 mmHg Bedside Blood Gas HCO3 (LAB) 41 meq/L 40 meq/L Bedside Blood Gas Total CO2 > 40 mEq/l > 40 mEq/l Bedside Blood Gas Base Excess (LAB) 14.0 meq/L 13.0 meq/L Bedside Blood Gas O2 Saturation 84.0 % 88.0 % Colin Test Pass Pass Oxygen Delivery Device Other Bedside FiO2 0 % Activated Partial Thromboplast Time 33.8 SECONDS Partial Thromboplastin Ratio 1.3 Test 05/10/17 20:30 05/10/17 22:11 05/10/17 22:42 05/10/17 23:39 Blood Gas Sample Site R Radial R Radial Bedside Blood Gas pH (LAB) 7.22 7.22 Bedside Blood Gas pCO2 (LAB) 97 mmHg 98 mmHg Bedside Blood Gas pO2 (LAB) 83 mmHg 84 mmHg Bedside Blood Gas HCO3 (LAB) 40 meq/L 40 meq/L Bedside Blood Gas Total CO2 > 40 mEq/l > 40 mEq/l Bedside Blood Gas Base Excess (LAB) 12.0 meq/L 13.0 meq/L Bedside Blood Gas O2 Saturation 92.0 % 93.0 % Colin Test Pass Pass Oxygen Delivery Device BIPAP Ventilator Bedside Oxygen Rate (breaths/min) 27 17 Bedside FiO2 45 % 40 % Blood Gas IPAP 20 Random Vancomycin Level 22.8 mcg/ml Blood Gas Minute Ventilation 9.3 Blood Gas Tidal Volume 500 Blood Gas PEEP 15 Bl Gas Pressure Support Ventilation 10 Bedside Glucose 180 mg/dl Test 05/11/17 00:31 05/11/17 03:53 05/11/17 06:01 05/11/17 06:17 Blood Gas Sample Site R Radial R Radial Bedside Blood Gas pH (LAB) 7.29 7.27 Bedside Blood Gas pCO2 (LAB) 80 mmHg 83 mmHg Bedside Blood Gas pO2 (LAB) 65 mmHg 103 mmHg Bedside Blood Gas HCO3 (LAB) 39 meq/L 39 meq/L Bedside Blood Gas Total CO2 > 40 mEq/l > 40 mEq/l Bedside Blood Gas Base Excess (LAB) 12.0 meq/L 12.0 meq/L Bedside Blood Gas O2 Saturation 88.0 % 97.0 % Colin Test Pass Pass Oxygen Delivery Device Ventilator Ventilator Bedside Oxygen Rate (breaths/min) 2 15 Blood Gas Minute Ventilation 12.1 9.5 Bedside FiO2 40 % 40 % Blood Gas Tidal Volume 550 500 Blood Gas PEEP 15 15 White Blood Count 8.37 K/uL Red Blood Count 3.93 M/uL Hemoglobin 11.9 g/dL Hematocrit 39.3 % Mean Corpuscular Volume 100.0 fL Mean Corpuscular Hemoglobin 30.3 pg Mean Corpuscular Hemoglobin Concent 30.3 g/dl RDW Standard Deviation 55.3 fL RDW Coefficient of Variation 15.2 % Platelet Count 162 K/uL Mean Platelet Volume 9.4 fL Activated Partial Thromboplast Time 58.4 SECONDS Partial Thromboplastin Ratio 2.2 Sodium Level 137 mmol/L Potassium Level 4.6 mmol/L Chloride Level 99 mmol/L Carbon Dioxide Level 36 mmol/L Anion Gap 2.0 mmol/L Blood Urea Nitrogen 26 mg/dl Creatinine 1.38 mg/dl Est Creatinine Clear Calc Drug Dose 90.2 ml/min Estimated GFR () 59.6 Estimated GFR (Non- 51.4 BUN/Creatinine Ratio 18.9 Random Glucose 226 mg/dl Calcium Level 7.9 mg/dl Phosphorus Level 3.4 mg/dl Magnesium Level 2.1 mg/dl Thyroid Stimulating Hormone (TSH) 2.120 uIu/ml Bedside Glucose 224 mg/dl Bl Gas Pressure Support Ventilation 10 Assessment & Plan Palliative Performance Scale: 30 % Problem list: Hypercarbic respiratory failure, acute on chronic COPD, advanced Obesity hypoventilatory syndrome Morbid obesity DVT, LLE Chronic RLE wound/cellulitis Goals of care Palliative care recs: discussed with patient, his son Emanuel Epps, daughter Mitzi , and Ghada, along with Dr. Jalloh and Jersey Alvarado PA-C. -Patient remains full resuscitation. -After very lengthy conversation, patient and his family have decided to move forward with IVC filter placement and tracheostomy. Dr. Jalloh did a very thorough job of explaining all of patient's medical conditions in detail and options for care. Jersey Alvarado PA-C, also weighed in from pulmonary/critical care standpoint. Family's questions were answered to their satisfaction and they would like to proceed with full treatment. -predatory animal exterminator goals are uncertain at this time, as well as patient's disposition. Family and patient were made well aware of all patient's comorbidities and acute problems. Thank you kindly for this consult. I will follow peripherally for now but please contact me with any further palliative care needs. Prolonged visit. Total time spent 100 minutes with >50% of time spent at bedside with consultants, patient and family counseling/discussing goals of care.
[2017-05-11] MEDS ORDERED: INSULIN ASPART 100 UNITS/ML 3 ML PEN SC ONE (12:00)
--- NOTE | 2017-05-11 12:24 | Clinical Documentation Query ---
CLINICAL DOCUMENTATION QUERY Dr. PEREZ, In your clinical opinion is this patient being managed for: ( ) Pneumonia, POA ( ) Not Agree ( ) Other explanation of clinical findings (Please Explain) ( ) Unable to determine (Please Define) ( ) Need to Discuss The medical record reflects the following clinical findings, treatment, and risk factors. Clinical Indicators: 71 yo male who presented to outside hospital with worsening dyspnea and wet cough. Pt was placed on BIPAP at [facility] and eventually transferred here. Initial CXR at [facility] showed Bibasilar opacities, greater on the left. These may be artifactual however pneumonia could have this appearance. Treatment: ICU, intubation and mechanical ventilation, IV vancomycin, IV zosyn, nebs, IV solumedrol, Risk Factors: age, morbid obesity, noncompliance with home CPAP, DM, chronic antibiotic therapy (cipro and Bactrim) Please clarify and document your clinical opinion in the progress notes and discharge summary. Terms such as "probable", "suspected", "likely", "questionable", "possible", or "still to be ruled out" are acceptable. IF IN AGREEMENT, YOU MUST DOCUMENT ABOVE DIAGNOSTIC STATEMENT IN DAILY PROGRESS NOTES AND DISCHARGE SUMMARY. This document is not part of the patient's record. Thank You, Kandi Ward RN [phone]
--- NOTE | 2017-05-11 13:55 | Pharmacy Progress Note ---
Pharmacy Antibiotic Prog Note Date of Service May 11, 2017. Objective Height (Feet): 5 Height (Inches): 11.00 Weight (Kilograms): 214.400 Lab Results (24hrs): Test 05/10/17 20:06 05/10/17 20:30 05/10/17 22:11 05/10/17 22:42 Activated Partial Thromboplast Time 33.8 SECONDS (21.0-31.0) Partial Thromboplastin Ratio 1.3 Blood Gas IPAP 20 Random Vancomycin Level 22.8 mcg/ml Bl Gas Pressure Support Ventilation 10 Test 05/10/17 23:39 05/11/17 00:31 05/11/17 03:53 05/11/17 06:01 Bedside Glucose 180 mg/dl (70-99) 224 mg/dl (70-99) Blood Gas Sample Site R Radial Bedside Blood Gas pH (LAB) 7.29 (7.35-7.45) Bedside Blood Gas pCO2 (LAB) 80 mmHg (35-46) Bedside Blood Gas pO2 (LAB) 65 mmHg (80-95) Bedside Blood Gas HCO3 (LAB) 39 meq/L (19-24) Bedside Blood Gas Total CO2 > 40 mEq/l (24-31) Bedside Blood Gas Base Excess (LAB) 12.0 meq/L (-9-1.8) Bedside Blood Gas O2 Saturation 88.0 % (90-95) Colin Test Pass Oxygen Delivery Device Ventilator Bedside Oxygen Rate (breaths/min) 2 Blood Gas Minute Ventilation 12.1 Bedside FiO2 40 % Blood Gas Tidal Volume 550 Blood Gas PEEP 15 White Blood Count 8.37 K/uL (4.8-10.8) Red Blood Count 3.93 M/uL (4.7-6.1) Hemoglobin 11.9 g/dL (14.0-18.0) Hematocrit 39.3 % (42-52) Mean Corpuscular Volume 100.0 fL (80-100) Mean Corpuscular Hemoglobin 30.3 pg (25-34) Mean Corpuscular Hemoglobin Concent 30.3 g/dl (32-36) RDW Standard Deviation 55.3 fL (36.4-46.3) RDW Coefficient of Variation 15.2 % (11.5-14.5) Platelet Count 162 K/uL (130-400) Mean Platelet Volume 9.4 fL (7.4-10.4) Activated Partial Thromboplast Time 58.4 SECONDS (21.0-31.0) Partial Thromboplastin Ratio 2.2 Sodium Level 137 mmol/L (136-145) Potassium Level 4.6 mmol/L (3.5-5.1) Chloride Level 99 mmol/L (98-107) Carbon Dioxide Level 36 mmol/L (21-32) Anion Gap 2.0 mmol/L (3-11) Blood Urea Nitrogen 26 mg/dl (7-18) Creatinine 1.38 mg/dl (0.60-1.40) Est Creatinine Clear Calc Drug Dose 90.2 ml/min Estimated GFR () 59.6 Estimated GFR (Non- 51.4 BUN/Creatinine Ratio 18.9 (10-20) Random Glucose 226 mg/dl (70-99) Calcium Level 7.9 mg/dl (8.5-10.1) Phosphorus Level 3.4 mg/dl (2.5-4.9) Magnesium Level 2.1 mg/dl (1.8-2.4) Thyroid Stimulating Hormone (TSH) 2.120 uIu/ml (0.300-4.500) Test 05/11/17 06:17 Blood Gas Sample Site R Radial Bedside Blood Gas pH (LAB) 7.27 (7.35-7.45) Bedside Blood Gas pCO2 (LAB) 83 mmHg (35-46) Bedside Blood Gas pO2 (LAB) 103 mmHg (80-95) Bedside Blood Gas HCO3 (LAB) 39 meq/L (19-24) Bedside Blood Gas Total CO2 > 40 mEq/l (24-31) Bedside Blood Gas Base Excess (LAB) 12.0 meq/L (-9-1.8) Bedside Blood Gas O2 Saturation 97.0 % (90-95) Colin Test Pass Oxygen Delivery Device Ventilator Bedside Oxygen Rate (breaths/min) 15 Blood Gas Minute Ventilation 9.5 Bedside FiO2 40 % Blood Gas Tidal Volume 500 Blood Gas PEEP 15 Bl Gas Pressure Support Ventilation 10 Assessment & Plan Assessment * 71 yo morbidly obese male transferred from [facility] on 2 PM for respiratory failure. Uses home O2, currently on BiPAP. * No previous admissions to [facility] * Possible sources of infection * Pulmonary - wet cough w hypoxic respiratory failure. But CXR @ [facility] with no acute cardiopulmonary process * Urinary - abnormal UA @ [facility]. Patient denied burning on urination. * Cellulitis - chronic LE wound, follows w wound clinic. On ciprofloxacin, Bactrim, and amoxicillin at home. * Antibiotics * Zosyn and vancomycin day 2. OK for now. * Cultures * Negative MRSA nasal swab * RLE ulcer w E. coli, probable Pseudomonas, and Corynebacterium * Blood, urine cultures with no growth to date * Renal * SCr mostly stable, but improving slightly: 1.47 to 1.38 mg/dL over 24 hours. Unknown baseline. Vancomycin * Goal trough level 15-20 mcg/mL * 10 hour level yesterday after 2500 mg dose was stable at 22.8 mg/dL - 2500 mg IV q10h would likely be too aggressive * Anticipate accumulation 2nd obesity * OK to schedule at this time as renal function stable * Trough prior to 3rd dose - this will be before steady state Plan * Vancomycin 2000 mg IV q12h * Trough 05/11 @ [id number] Pharmacy will continue to follow and will adjust dose/frequency as necessary. Thank you
--- NOTE | 2017-05-11 14:22 | Pharmacy Progress Note ---
Glycemic Control Intl Consult Date of Service May 11, 2017. Scope Glycemic Pharmacist consulted by Dr Jalloh on 05/11/17 for glycemic control and to write orders per [facility] inpatient glycemic control protocol Objective Weight (Kilograms): 214.400 Accuchecks BSG (last 24hrs): Test 05/10/17 23:39 05/11/17 03:53 05/11/17 06:01 Bedside Glucose 180 mg/dl (70-99) 224 mg/dl (70-99) Random Glucose 226 mg/dl (70-99) Laboratory Data (last 24hrs) Test 05/11/17 03:53 Anion Gap 2.0 mmol/L BUN/Creatinine Ratio 18.9 Blood Urea Nitrogen 26 mg/dl Creatinine 1.38 mg/dl Potassium Level 4.6 mmol/L Sodium Level 137 mmol/L White Blood Count 8.37 K/uL HbA1c Test 05/09/17 22:50 Hemoglobin A1c 6.9 % (4.5-5.6) H Recent Pertinent Medications Outpatient Anti-diabetic Regimen: * Metformin 1000 mg po BID * A1c = 6.9 % on 05/09/17 The patient is currently receiving: * Basal insulin: Lantus 25 units x1 yesterday * Correctional Insulin: Novolog Correction per scale ACHS Goal Range: Low 120 mg/dL - High 160 mg/dL Correction Factor: 15 mg/dL/unit * Prandial insulin: Per carb ratio of 1 unit per 5 grams CHO consumed Risk Factors for Insulin Resistance: * Steroids: Methylprednisolone 40 mg IV q6h (started yesterday), continuing until tonight, then 40 mg IV q12h starting tomorrow * Infection: Lower extremity severe wound - on Zosyn, vancomycin * IVF: Heparin drip * Diet: Peptamen VHP * Mechanical Ventilation: YES Assessment & Plan ASSESSMENT: * 71 yo M T2DM on oral agent alone at home now with steroid-induced hyperglycemia * BSG's were 133-156 mg/dL prior to steroids, now 180-248 mg/dL * Will give full daily dose of Lantus at weight-based stress of 2 estimate this AM (*adjusted* weight-based stress of 3). * Will also provide additional Lantus this PM for any BSG > 140 mg/dL * Will tighten Novolog correction factor * Will provide coverage for tubefeeds even though only running at 15 mL (~5 g CHO q4h) * Needs difficult to estimate 2nd morbid obesity and significant impact of steroids - patient may require insulin drip if BSG's remain elevated PLAN FOR INPATIENT GLYCEMIC CONTROL: * Holding outpatient oral diabetes medications * Increase Basal insulin with LANTUS 70 units (35+35 units) x1 this AM. Additional Lantus tonight as follows: * Hold for BSG less than 140 mg/dL * 15 units for BSG 140-180 mg/dL * 25 units for BSG greater than 180 mg/dL * Correctional Insulin with NOVOLOG q4h * Goal Range: Low 120 mg/dL - High 160 mg/dL * Tighten Correction Factor: 8 mg/dL/unit * Tighten Nutritional / Prandial insulin per carb ratio of 1 unit per 3 grams CHO consumed * Please note that the plan above was derived based on current level of insulin resistance and hospital stress. These recommendations are appropriate for inpatient admission only. Plan of care upon discharge will need to be reassessed to avoid potential outpatient hypo/hyperglycemia. Thank you.
--- NOTE | 2017-05-11 14:38 | Progress Note ---
Progress Note Date of Service May 11, 2017. Progress Note Patients family currently having family meeting with ICU team to discuss ongoing treatment plans/level of care. Will follow with formal consult if family decides to move forward with more aggressive care. In the meantime, will continue abx.
[2017-05-11] MEDS: FENTANYL CITRATE INJ 50 MCG/1 ML 2 ML VIAL IV PRN ×2 (16:50→19:45)
[2017-05-11] MEDS: MIDAZOLAM HCL 1 MG/ML 2ML VIAL IV PRN ×2 (16:50→19:45)
[2017-05-11] MEDS: HEPARIN 25,000 UNIT/500ML D5W 500 ML IV PRN (17:33)
--- NOTE | 2017-05-11 18:30 | Critical Care Progress Note ---
Critical Care Progress Note Date of Service May 11, 2017. ICU Day ICU Day Number: [address] Jalloh Subjective Overnight patient became somnolent requiring intubation. Objective Head: normocephalic Eyes: PERRLA ENT: other (Endotracheal tube in place) Neck: no tenderness, trachea midline, no stridor, no nuchal rigidity Respiratory: other (Difficult exam, distant breath sounds) Cardiovasular: regular rate/rhythm, other (Difficult exam distant heart sounds) Abdomen: other (No tenderness with palpation) Genitourinary - Male: other (Syed present) Lower Extremities: edema (+2), other (I removed the dressing of the right lower extremity, there appears to be chronic venous stasis ulcers with significant skin changes) Edema: Bilateral LE (2+) Neuro: Alert, following complex commands Assessment & Plan PLAN: Neuro: Patient maintained on Precedex infusion, this was started to facilitate noninvasive ventilation overnight. * Precedex infusion has been implicated and improved REM sleep, will continue with Precedex infusion for sedation at this time Resp: Acute on chronic hypercarbic respiratory failure * Patient's baseline pH likely near 7.33 based on calculations with bicarb in 40s Obesity hypoventilation syndrome * Patient clearly obstructs his airway while sleeping, has several apnea events during the day * Patient does not tolerate CPAP, requires very high pressures and routinely removes his mask * Patient likely has underlying COPD as well. * In discussing treatment options, patient has failed CPAP therapy, has also failed a trial of extubation, given chronicity of findings and the fact the patient would not be a candidate for gastric bypass surgery, I feel he would be appropriate candidate for elective tracheostomy * Discussed risks benefits with the patient, patient's , and children, all in agreement that the patient wants to proceed with elective tracheostomy * I discussed that the patient is currently on blood thinners and would likely require an IVC filter prior to tracheostomy * I also discussed that the tracheostomy in an of itself is only one small aspect to a very large multi-factorial process and even with proceeding this may not liberate him from a ventilator as this does not treat his underlying COPD * The tracheostomy will facilitate bypassing his upper airway obstructions as well as allow us to better facilitate physical therapy for the patient to prevent further decompensation CV: Mildly dilated right ventricle * Concern for cor pulmonale secondary to likely multiple etiologies * Likely obesity hypoventilation syndrome * Patient noncompliant with CPAP * Newly diagnosed DVT, unclear if patient has pulmonary embolism * Empiric heparin infusion Right bundle branch block * Troponins negative 1, largely unremarkable BNP Fluids/Renal: Elevated creatinine * Unknown baseline ID: Chronic cellulitis of lower extremities * Empiric Zosyn and vancomycin * Wound culture of right lower extremity was obtained, reviewed results at this time however unclear clinical significance of surface culture * Reviewed infectious disease consultation GI/Nutrition: Morbid obesity * Would benefit from outpatient follow-up with dietitian Heme: Left lower extremity venous thromboembolism * Heparin infusion * Eventually will require transitioning to Coumadin, continue heparin infusion as the patient will likely need to undergo invasive procedures Endocrine: Elevated hemoglobin A1c Hyperglycemia * ICU insulin protocol * Increased basal insulin, this is likely secondary to steroid utilization * Will decrease steroids tomorrow * Attempting to optimize aspects of COPD Vascular access: Patient has tenuous IV access, I have consented the patient for a PICC. * Left-sided PICC placed May 10, 2017 CODE STATUS: Full code I have personally spent 120 minutes of critical care time in the direct management of this patient. This is a life/limb threatening event. This includes time spent evaluating patient, direct bedside care, chart review, placing orders, interpretation of diagnostic studies, discussion with consultants, patient, and/or family members regarding treatment decisions, as well as other required patient management activities. This time is exclusive of all separately billable procedures, and teaching time and separate from and in addition to any other critical care service time. Data Medications: Current Inpatient Medications Medications (Trade) Dose Ordered Sig/Kathe Route Start Time Stop Time Status Last Admin Dose Admin Ondansetron HCl (Zofran Inj) 4 mg Q6H PRN IV 05/09/17 22:00 06/08/17 21:59 Nitroglycerin (Nitrostat Tab) 0.4 mg UD PRN SL 05/09/17 22:00 06/08/17 21:59 Glucose (Glucose 40% Gel) 15-30 GRAMS 15 GRAMS... UD PRN PO 05/09/17 22:00 06/08/17 21:59 Glucose (Glucose Chew Tab) 4-8 Tablets 4 Tabl... UD PRN PO 05/09/17 22:00 06/08/17 21:59 Dextrose (Dextrose 50% 50ML Syringe) 25-50ML OF 50% DW IV FOR... UD PRN IV 2/25/18 22:00 06/08/17 21:59 Glucagon (Glucagon Inj) 1 mg UD PRN SQ 05/09/17 22:00 06/08/17 21:59 Miscellaneous Information (Consult) 1 ea UD PRN N/A 05/09/17 22:15 06/08/17 22:14 Miscellaneous Information (Consult) 1 ea UD PRN N/A 05/09/17 22:30 06/08/17 22:29 Miscellaneous Information (Order Awaiting Action) 1 ea QS N/A 05/10/17 00:00 06/09/17 00:00 Piperacillin Sod/ Tazobactam Sod 4.5 gm/Dextrose 120 ml @ 30 mls/hr Q8H IV 05/10/17 04:00 05/16/17 23:59 05/11/17 11:09 30 MLS/HR Fentanyl Citrate (Fentanyl Inj) 100 mcg Q2H PRN IV 05/10/17 08:45 05/24/17 08:44 05/11/17 16:50 100 MCG Midazolam HCl (Versed Inj) 2 mg Q2H PRN IV 05/10/17 08:45 06/09/17 08:44 05/11/17 16:50 2 MG Famotidine 20 mg/ Syringe 5 ml @ 2.5 mls/min Q12 IV 05/10/17 09:30 06/09/17 09:29 05/11/17 08:30 2.5 MLS/MIN Enteral Nutritional Formula (Peptamen Intense VHP) 1,000 ml UD OG 05/10/17 09:00 06/09/17 08:59 05/10/17 09:53 1,000 ML Enteral Nutritional Formula (Prosource No Carb) 30 ml BID PO 05/10/17 09:00 06/09/17 08:59 05/11/17 08:30 30 ML Ascorbic Acid (Vitamin C Tab) 500 mg QAM PO 05/10/17 09:00 06/09/17 08:59 05/11/17 08:30 500 MG Zinc Sulfate (Zinc Sulfate Cap) 220 mg QAM PO 05/10/17 09:00 06/09/17 08:59 05/11/17 08:30 220 MG Multivitamins Therapeutic (Cerovite Liquid) 15 ml QAM PO 05/10/17 09:00 06/09/17 08:59 05/11/17 08:30 15 ML Heparin Sodium/ Dextrose 500 ml @ 56 mls/hr Q8H56M PRN IV 05/10/17 11:00 06/09/17 10:59 05/11/17 17:33 56 MLS/HR Dexmedetomidine HCl 200 mcg/ Sodium Chloride 50 ml @ 0 mls/hr Q0M PRN IV 05/10/17 18:09 05/14/17 18:08 05/11/17 09:28 5.2 MLS/HR Methylprednisolone Sodium Succinate 40 mg/Syringe 0.64 ml @ 1.5 mls/min Q6H IV 05/10/17 19:30 05/11/17 19:31 05/11/17 13:47 1.5 MLS/MIN Vancomycin HCl 2000 mg/Sodium Chloride 540 ml @ 200 mls/hr Q12@0000,1200 IV 05/11/17 12:00 05/16/17 23:59 05/11/17 11:09 200 MLS/HR Modafinil (proVIGIL TAB) 200 mg QAM PO 05/11/17 09:00 06/10/17 08:59 05/11/17 09:27 200 MG Miscellaneous Information (Consult Glycemic Management Pharmacy) 1 ea UD PRN N/A 05/11/17 09:15 06/10/17 09:14 Methylprednisolone Sodium Succinate 40 mg/Syringe 0.64 ml @ 1.5 mls/min Q12 IV 05/12/17 09:00 06/11/17 08:59 Insulin Aspart (novoLOG ASPART) SLIDING SCALE If C... Q4 SC 05/11/17 11:00 06/10/17 10:59 05/11/17 16:06 8 UNITS Insulin Glargine (Lantus Solostar Pen) QPM SC 05/11/17 21:00 05/12/17 08:59 Furosemide (Lasix Tab) 20 mg BID PO 05/11/17 21:00 06/10/17 20:59 Prednisolone Acetate (Pred Forte 1% Oph Susp (PER DROP CHARGE)) 1 drop DAILY OPR 05/12/17 09:00 06/11/17 08:59 Future Hold Prednisolone Acetate (Pred Forte 1% Oph Susp (PER DROP CHARGE)) 1 drop TID OPL 05/11/17 21:00 06/10/17 20:59 Future Hold I & O: 24-Hour Column 05/12/17 08:00 Intake Total 1333 ml Output Total 500 ml Balance 833 ml Vital Signs: Date Time Temp Pulse Resp B/P (MAP) Pulse Ox O2 Delivery O2 Flow Rate FiO2 05/11/17 17:57 50 05/11/17 16:00 36.4 70 30 109/58 (75) 93 CPAP 40 05/11/17 16:00 40 05/11/17 16:00 93 Mechanical Ventilator 40 05/11/17 15:40 40 05/11/17 14:00 75 24 118/51 (73) 92 BiPAP 40 05/11/17 12:00 93 Mechanical Ventilator 40 05/11/17 12:00 37.2 77 23 104/53 (70) 93 CPAP 40 05/11/17 12:00 40 05/11/17 11:47 40 05/11/17 10:00 71 14 101/57 (72) 95 CPAP 40 05/11/17 08:41 40 05/11/17 08:00 40 05/11/17 08:00 95 Mechanical Ventilator 40 05/11/17 08:00 Mechanical Ventilator 40 05/11/17 08:00 37.0 65 22 117/59 (78) 95 Mechanical Ventilator 40 05/11/17 07:32 40 05/11/17 06:00 36.9 71 22 92/50 (64) 95 Mechanical Ventilator 40 05/11/17 05:45 40 05/11/17 04:00 40 05/11/17 04:00 36.9 71 22 118/59 (78) 94 Mechanical Ventilator 40 05/11/17 04:00 94 Mechanical Ventilator 40 05/11/17 03:31 40 05/11/17 02:00 37.4 68 22 121/67 (85) 95 Mechanical Ventilator 40 05/11/17 00:01 37.4 70 22 137/61 (86) 96 Mechanical Ventilator 40 05/10/17 23:59 95 Mechanical Ventilator 40 05/10/17 23:59 40 05/10/17 22:55 40 05/10/17 22:16 85 20 115/58 (77) 96 Mechanical Ventilator 05/10/17 21:07 40 05/10/17 20:00 BiPAP 05/10/17 19:15 87 24 115/58 (77) 94 CPAP 05/10/17 19:00 91 100 100 Laboratory Results: Last 24 Hours Test 05/10/17 18:15 05/10/17 20:06 05/10/17 20:30 05/10/17 22:11 Blood Gas Sample Site L Radial R Radial Bedside Blood Gas pH (LAB) 7.28 7.22 Bedside Blood Gas pCO2 (LAB) 85 mmHg 97 mmHg Bedside Blood Gas pO2 (LAB) 65 mmHg 83 mmHg Bedside Blood Gas HCO3 (LAB) 40 meq/L 40 meq/L Bedside Blood Gas Total CO2 > 40 mEq/l > 40 mEq/l Bedside Blood Gas Base Excess (LAB) 13.0 meq/L 12.0 meq/L Bedside Blood Gas O2 Saturation 88.0 % 92.0 % Colin Test Pass Pass Activated Partial Thromboplast Time 33.8 SECONDS Partial Thromboplastin Ratio 1.3 Oxygen Delivery Device BIPAP Bedside Oxygen Rate (breaths/min) 27 Bedside FiO2 45 % Blood Gas IPAP 20 Random Vancomycin Level 22.8 mcg/ml Test 05/10/17 22:42 05/10/17 23:39 05/11/17 00:31 05/11/17 03:53 Blood Gas Sample Site R Radial R Radial Bedside Blood Gas pH (LAB) 7.22 7.29 Bedside Blood Gas pCO2 (LAB) 98 mmHg 80 mmHg Bedside Blood Gas pO2 (LAB) 84 mmHg 65 mmHg Bedside Blood Gas HCO3 (LAB) 40 meq/L 39 meq/L Bedside Blood Gas Total CO2 > 40 mEq/l > 40 mEq/l Bedside Blood Gas Base Excess (LAB) 13.0 meq/L 12.0 meq/L Bedside Blood Gas O2 Saturation 93.0 % 88.0 % Colin Test Pass Pass Oxygen Delivery Device Ventilator Ventilator Bedside Oxygen Rate (breaths/min) 17 2 Blood Gas Minute Ventilation 9.3 12.1 Bedside FiO2 40 % 40 % Blood Gas Tidal Volume 500 550 Blood Gas PEEP 15 15 Bl Gas Pressure Support Ventilation 10 Bedside Glucose 180 mg/dl White Blood Count 8.37 K/uL Red Blood Count 3.93 M/uL Hemoglobin 11.9 g/dL Hematocrit 39.3 % Mean Corpuscular Volume 100.0 fL Mean Corpuscular Hemoglobin 30.3 pg Mean Corpuscular Hemoglobin Concent 30.3 g/dl RDW Standard Deviation 55.3 fL RDW Coefficient of Variation 15.2 % Platelet Count 162 K/uL Mean Platelet Volume 9.4 fL Activated Partial Thromboplast Time 58.4 SECONDS Partial Thromboplastin Ratio 2.2 Sodium Level 137 mmol/L Potassium Level 4.6 mmol/L Chloride Level 99 mmol/L Carbon Dioxide Level 36 mmol/L Anion Gap 2.0 mmol/L Blood Urea Nitrogen 26 mg/dl Creatinine 1.38 mg/dl Est Creatinine Clear Calc Drug Dose 90.2 ml/min Estimated GFR () 59.6 Estimated GFR (Non- 51.4 BUN/Creatinine Ratio 18.9 Random Glucose 226 mg/dl Calcium Level 7.9 mg/dl Phosphorus Level 3.4 mg/dl Magnesium Level 2.1 mg/dl Thyroid Stimulating Hormone (TSH) 2.120 uIu/ml Test 05/11/17 06:01 05/11/17 06:17 Bedside Glucose 224 mg/dl Blood Gas Sample Site R Radial Bedside Blood Gas pH (LAB) 7.27 Bedside Blood Gas pCO2 (LAB) 83 mmHg Bedside Blood Gas pO2 (LAB) 103 mmHg Bedside Blood Gas HCO3 (LAB) 39 meq/L Bedside Blood Gas Total CO2 > 40 mEq/l Bedside Blood Gas Base Excess (LAB) 12.0 meq/L Bedside Blood Gas O2 Saturation 97.0 % Colin Test Pass Oxygen Delivery Device Ventilator Bedside Oxygen Rate (breaths/min) 15 Blood Gas Minute Ventilation 9.5 Bedside FiO2 40 % Blood Gas Tidal Volume 500 Blood Gas PEEP 15 Bl Gas Pressure Support Ventilation 10
--- NOTE | 2017-05-11 18:59 | CONSULTATION REPORT ---
DATE OF CONSULTATION: 05/11/2017 DIAGNOSIS: Respiratory failure. HISTORY OF PRESENT ILLNESS: This 71-year-old gentleman was admitted via the Emergency Room on 05/09/2017 as a transfer from [facility] Emergency Department for acute respiratory failure, developed deep vein thrombosis and possible pulmonary embolism. He failed BiPAP and had to be intubated. Consultation was requested by Dr. Jalloh for possible tracheostomy. MEDICAL PROBLEMS: Include hypercarbic respiratory failure, congestive heart failure, deep vein thrombosis and possible pulmonary embolism. PHYSICAL EXAMINATION: GENERAL: Obese male who is intubated. HEAD: Normocephalic. EYES: Normal. NOSE: Nasal passages patent. THROAT: Oral tracheal tube is in place. NECK: Supple. IMPRESSION: Respiratory failure. PLAN: For possible tracheostomy on .
[2017-05-11] MEDS: FUROSEMIDE 20 MG TAB PO SCH (19:37)
[2017-05-11] MEDS: INSULIN GLARGINE SOLOSTAR 100 UNITS/ML 3 ML PEN SC SCH (19:40)
[2017-05-11] MEDS ORDERED: PREDNISOLONE ACET 1% OPL SCH (21:00)
--- NOTE | 2017-05-11 21:50 | DIAGNOSTIC IMAGING REPORT ---
R ANKLE MIN 3 VIEWS ROUTINE CLINICAL HISTORY: Open wound. Evaluate for osteomyelitis. COMPARISON: None FINDINGS: Chronic distal right tibial and fibular deformity is noted. Tibiotalar/subtalar joint fusion is noted. Soft tissue calcification along the plantar aspect of the right foot is noted. There is no definite radiographic evidence for osteomyelitis although sensitivity significantly diminished given chronic deformity and post surgical/post traumatic change. Soft tissue swelling is noted. IMPRESSION: No radiographic evidence of osteomyelitis within the right ankle however sensitivity significantly diminished given radiographic technique and extensive posttraumatic/post surgical changes within the right ankle. Diffuse soft tissue swelling. Electronically signed by: Sal Sun M.D. 05/11/2017 9:48 PM Dictated Date/Time: 05/11/2017 9:45 PM
--- NOTE | 2017-05-11 21:52 | DIAGNOSTIC IMAGING REPORT ---
R FOOT MIN 3 VIEWS ROUTINE CLINICAL HISTORY: Open wound. Evaluate for osteomyelitis. COMPARISON: None FINDINGS: Flat foot deformity is noted. There is evidence for a previous tibiotalar/subtalar joint effusion. There is extensive soft tissue calcification which is chronic lung plantar aspect of the right foot. Diffuse soft tissue swelling is noted. There is near complete fusion of the tarsometatarsal joints. Chronic deformity of the right first metatarsal is probably chronic. Sensitivity for detection of osteomyelitis is greatly diminished on this exam but there is no definite osteolysis to suggest osteomyelitis. IMPRESSION: No radiographic evidence of osteomyelitis within the right foot however sensitivity significantly diminished given radiographic technique and extensive posttraumatic/post surgical changes within the right foot. Diffuse soft tissue swelling. Electronically signed by: Sal Sun M.D. 05/11/2017 9:50 PM Dictated Date/Time: 05/11/2017 9:49 PM
--- NOTE | 2017-05-11 22:54 | Progress Note ---
Subjective Date of Service: May 11, 2017. Subjective Pt evaluation today including: conversation w/ family, physical exam Patient continues to be intubated. Patient failed a trial of extubation yesterday. Patient is sedated. is at bedside. She states that she understands that he is not doing well, but believes that if he fights he can get better. Unable to get history from patient. Objective Vital Signs Date Time Temp Pulse Resp B/P (MAP) Pulse Ox O2 Delivery O2 Flow Rate FiO2 05/11/17 19:50 50 05/11/17 18:00 62 22 120/59 (79) 95 Mechanical Ventilator 50 05/11/17 17:57 50 05/11/17 16:00 36.4 70 30 109/58 (75) 93 CPAP 40 05/11/17 16:00 40 05/11/17 16:00 93 Mechanical Ventilator 40 05/11/17 15:40 40 05/11/17 14:00 75 24 118/51 (73) 92 BiPAP 40 05/11/17 12:00 93 Mechanical Ventilator 40 05/11/17 12:00 37.2 77 23 104/53 (70) 93 CPAP 40 05/11/17 12:00 40 05/11/17 11:47 40 05/11/17 10:00 71 14 101/57 (72) 95 CPAP 40 05/11/17 08:41 40 05/11/17 08:00 40 05/11/17 08:00 95 Mechanical Ventilator 40 05/11/17 08:00 Mechanical Ventilator 40 05/11/17 08:00 37.0 65 22 117/59 (78) 95 Mechanical Ventilator 40 05/11/17 07:32 40 05/11/17 06:00 36.9 71 22 92/50 (64) 95 Mechanical Ventilator 40 05/11/17 05:45 40 05/11/17 04:00 40 05/11/17 04:00 36.9 71 22 118/59 (78) 94 Mechanical Ventilator 40 05/11/17 04:00 94 Mechanical Ventilator 40 05/11/17 03:31 40 05/11/17 02:00 37.4 68 22 121/67 (85) 95 Mechanical Ventilator 40 05/11/17 00:01 37.4 70 22 137/61 (86) 96 Mechanical Ventilator 40 05/10/17 23:59 95 Mechanical Ventilator 40 05/10/17 23:59 40 05/10/17 22:55 40 Physical Exam Comments: VITAL SIGNS: He is afebrile, pulse 56, respiratory rate 22, blood pressure 114/66, oxygen saturation is 98% on 50% FIO2. GENERAL: He is currently sedated/ endotracheal tube in place HEENT: Mucous membranes are dry. HEART: Regular rate and rhythm LUNGS: Clear anteriorly with decreased breath sounds at the bases bilaterally. ABDOMEN: Soft and nondistended. LOWER EXTREMITY: edema (+2), I was present was dressing was removed of the right lower extremity, there appears to be chronic venous stasis ulcers with significant skin changes Laboratory Results Last 24 Hours Test 05/10/17 23:39 05/11/17 00:31 05/11/17 03:53 05/11/17 06:01 Bedside Glucose 180 mg/dl 224 mg/dl Blood Gas Sample Site R Radial Bedside Blood Gas pH (LAB) 7.29 Bedside Blood Gas pCO2 (LAB) 80 mmHg Bedside Blood Gas pO2 (LAB) 65 mmHg Bedside Blood Gas HCO3 (LAB) 39 meq/L Bedside Blood Gas Total CO2 > 40 mEq/l Bedside Blood Gas Base Excess (LAB) 12.0 meq/L Bedside Blood Gas O2 Saturation 88.0 % Colin Test Pass Oxygen Delivery Device Ventilator Bedside Oxygen Rate (breaths/min) 2 Blood Gas Minute Ventilation 12.1 Bedside FiO2 40 % Blood Gas Tidal Volume 550 Blood Gas PEEP 15 White Blood Count 8.37 K/uL Red Blood Count 3.93 M/uL Hemoglobin 11.9 g/dL Hematocrit 39.3 % Mean Corpuscular Volume 100.0 fL Mean Corpuscular Hemoglobin 30.3 pg Mean Corpuscular Hemoglobin Concent 30.3 g/dl RDW Standard Deviation 55.3 fL RDW Coefficient of Variation 15.2 % Platelet Count 162 K/uL Mean Platelet Volume 9.4 fL Activated Partial Thromboplast Time 58.4 SECONDS Partial Thromboplastin Ratio 2.2 Sodium Level 137 mmol/L Potassium Level 4.6 mmol/L Chloride Level 99 mmol/L Carbon Dioxide Level 36 mmol/L Anion Gap 2.0 mmol/L Blood Urea Nitrogen 26 mg/dl Creatinine 1.38 mg/dl Est Creatinine Clear Calc Drug Dose 90.2 ml/min Estimated GFR () 59.6 Estimated GFR (Non- 51.4 BUN/Creatinine Ratio 18.9 Random Glucose 226 mg/dl Calcium Level 7.9 mg/dl Phosphorus Level 3.4 mg/dl Magnesium Level 2.1 mg/dl Thyroid Stimulating Hormone (TSH) 2.120 uIu/ml Test 05/11/17 06:17 05/11/17 10:51 05/11/17 15:38 05/11/17 19:32 Blood Gas Sample Site R Radial Bedside Blood Gas pH (LAB) 7.27 Bedside Blood Gas pCO2 (LAB) 83 mmHg Bedside Blood Gas pO2 (LAB) 103 mmHg Bedside Blood Gas HCO3 (LAB) 39 meq/L Bedside Blood Gas Total CO2 > 40 mEq/l Bedside Blood Gas Base Excess (LAB) 12.0 meq/L Bedside Blood Gas O2 Saturation 97.0 % Colin Test Pass Oxygen Delivery Device Ventilator Bedside Oxygen Rate (breaths/min) 15 Blood Gas Minute Ventilation 9.5 Bedside FiO2 40 % Blood Gas Tidal Volume 500 Blood Gas PEEP 15 Bl Gas Pressure Support Ventilation 10 Bedside Glucose 248 mg/dl 220 mg/dl 223 mg/dl Assessment and Plan Patient is a 71 year old male with a past medical history of Diabetes, Morbid Obesity, Hypertension, Chronic LE wound with cellulitis following with Dr. Acosta at wound clinic, and CHF that presents fro [facility] with worsening shortness of breath and lower extremity cellulitis Acute Hypoxic Respiratory Failure likely obesity hypoventilation syndrome BMI is 66 -Patient failed extubation/ and was reintubated - DANA/ Pickwick[place]cern for cor pulmonale secondary to likely multiple etiologies -Patient remains critically ill -Patient's baseline pH likely near 7.33 based on calculations with bicarb in 40s -currently 7.29 (improved from 7.22) -Needs meeting with family to discuss next options. If plan is to extubate terminally or to do a trach. -palliative care on board. - On Vanc + Zosyn - Blood Cultures pending UTI - Urinalysis from [facility] - Leuk Est, Nit, WBC positive - Repeat UA, Urine Culture - Antibiotics as above - Syed catheter in place Left lower extremity venous thromboembolism * Heparin infusion Cellulitis/ Chronic Right Lower Extremity Wound - Antibiotics as above - Wound Culture - Wound care consult with Dr. Acosta - Wound Care nurse - Currently dressed with Vaseline, Gauze, Kerlex, and WILLIAM wrap - Continue home Tramadol DM - Hold home metformin - ISS with BSG checks AC/HS CHF - Lasix 40mg PO BID Glaucoma - Continue Prednisolone Opth drops Right bundle branch block * Troponins negative 1, largely unremarkable BNP DVT - Heparin infusion Dispo: Failed extubation. Will have palliative care meeting today with and son. Spent about 55 minutes with patient. Continued [facility] stay due to: multiple IV medications needed Discharge planning: uncertain
[2017-05-11] MEDS ORDERED: VANCOMYCIN TROUGH ONE (23:30)
--- NOTE | 2017-05-11 23:31 | CONSULTATION REPORT ---
DATE OF CONSULTATION: 05/11/2017 In ICU on Wednesday evening, 05/11/2017. Preface: My office received a consultation request today and my promotional advertising assistant spoke to the physician this morning to review the requested needs. I came over tonight to provide this podiatric care consultation that was requested to include nail care, as well as to determine if there was any localized podiatric findings or contribution to the infection and cellulitis process, which is a portion of this patient's admission. In advance, have reviewed the 52 pages of charting records that was faxed to my office which included initial admission notes. Prior to my evaluation and care, I reviewed the complete EHR while in the unit, which included all interim reports ; relevant labs and documented findings. Time on the floor is approximately 90 minutes Note: although records indicate the patient is a poor historian, at the time of the exam the patient was intubated. Attempts at his communication with nursing including him trying to write was not productive in this process. It seemed to shake his head " no " when asked if he has any prior established podiatric providers or care . I will not capture and insert all already documented medical findings into this dictated report, as they are available for reference in the EHR. Rather, I will use this narrative to break down this consultation into 2 sections and also note that PART 1 - At Risk Foot Care ( Diabetic, PVD, current acute on chronic ulceration with cellulitis ) As requested, staff has applied wet-soaked towels to the feet to soften nails etc since soaking in not an option -- this is helpful to avoid unnecessary localized skin and nail trauma and potential discomfort for the patient, particularly in cases of accumulated foot-care neglect. Staff assistance was greatly appreciated . LIMITED PODIATRIC EXAMINATION: As is also documented in the record, the patient 's pulses are nonpalpable but capillary refilling time is normal and skin temperature is also normal. DERMATOLOGICALLY: from a nail perspective there are three issues : a/ generally overly -elongated nails, most of which are dystrophic. b/ The left hallux laterally is chronically incurvated, and laterally ingrown and has evidence of a small purulent abscess ( localized ) at the base of the lateral nail groove. c/ The right hallux nail is entirely fungal and dystrophic and from the nail bed and at some risk of accidental partial tear or avulsion. special skin findings: There is an approximately 4 mm pigmented nevus on the medial dorsal base of the left third digit. Pigmentation is even, no bleeding, not raised, borders well defined. Biopsey not recommended Skin quality includes right LE chronic lymphedematous finding, with dorsal skin changes that include non-ulcerative digital excoriations and possible fungal changes. Web spaces do NOT reveal any cracks , skin tract or sinus opening. Certainly, in the scheme of his other medical admission diagnoses, needing to attend to the local Podiatric Nail care is minor in comparison, but is an appropriate intervention to both be certain that there was no hidden contributing to infection ( separate from the chronic ankle ulceration and other limb pathology ) as well as to provide chydu-nzgok-bive care as well as to prevent future accidental iatrogenic laceration ( scratching ) ; accidental catching or pulling of the right great nail that might then cause bleeding; and worsening of what appears to be a more chronic ingrown left lateral hallux nail with local abscess / limited purulence As part of the debridement / nail care provided today, I have: 1. Removed the left lateral ingrown nail deformity , without local anesthetic, to the based, and ppened / ID the primarily drying ( responding to all other on-board antibiotics ) purulent sac. 2. Debrided and essentially removed in toto the right hallux nail. 3. And debrided all remaining dystrophic nails. Please note that none of this was painful to the patient in part due to the chronic separation of the nails with the fungal and other components we have observed and likely neuropathic changes. There was Zero / NO bleeding or trauma to the areas. Recommendations ( ordered ) Bactroban ointment to be applied tonight liberally to all the pedal nails and end digits that have been debrided; and then b.i.d. over the next 5 days which would end on 05/16/2017. Report any localized signs or symptoms of negative changes PART 2 - Evaluation Inspection and documentation of Ankle Pathology and wound I am aware that Wound Care and others have been evaluating and treating this patient, but I did want to look at the wounds that were bandaged by wound clinic at the lower extremity, particularly the ankle anterior, medial and laterally. I partly evaluated by probing with a sterile swab and do feel that we are at or very close to bone on the most lateral deep lesion. These are likely chronic changes I could not find anywhere in the records that there were recent x-rays taken within our facility or other clinics and took it upon myself ( do not mean to over-reach ) to order ankle and foot films tonight which fortunately were able to be completed by radiology portable films (even though I did not order them stat) while I was here. The purpose is to have a base line, and to document that we have checked to verify there are no osteomyelitis changes, sinus tracts, soft tissue changes etc in this foot and ankle area I think this is important because sometimes with post traumatic chronic injuries we need to keep in mind that infection can still override the chronic deformities and problems that were otherwise present in the past can be acutely compromised While we can wait for formal radiologist's reading, but I am satisfied I see chronic but not acute pathology in this region. There is no sinus tract, no soft tissue changes consistent with abscess or infection. It is important to note that on some foot views, there is small vessel calcification which is not unexpected with this patient's overall medical makeup, but we also realized this can further compromise healing of wounds for the delivery of any antibiotics. Patient has a fused ankle, with a single screw fixation ( on some view the head is several millimeters from bone but is not loosening, and while it could be a pressure point does not appear directly related to the ankle ulcerations ) . Injuries and post-trauma sequela would seems to include a LisFrancs injury including first ray and metatarsal mid fracture. I would be curious to know more about the injury but cannot find that in these current records As an aside, while it appears that based on cultures, there is a response to antibiotics used, as a reminder, consider fungal cultures if progress is stymied or there would not be significant improvement in his lower extremity care and treatment. While not directly contiguous to the open ankle wounds, there is clear clinical evidence of skin and nail fungus, and combined with the other basic abilities of self care, hygiene and other patient issues, it could always be possible that that fungal infection can be a component of cellulitis. In addition, the general overall makeup of the foot appearance with its chronic post-trauma appearance which includes lymphedema does have some skin changes, particularly on the dorsal foot and bases of the toes that could be a more chronic fungal skin change. .... I do not feel specific Podiatric antifungal treatment is needed at this point in time here. If returned to an outpatient environment, returning to a Security Strategist in his area for maintenance care is highly recommended Thank you --- I appreciate the fact that everyone is looking at all aspects of care for this gentleman. I hope this information is helpful in his overall management -- please contact me if there are questions or concerns. GUTIERREZ
[2017-05-12] VITALS (43 sets, daily range): BP systolic 114–139; BP diastolic 53–75; PULSE 54–137; TEMP 36.6–37.2; O2SAT 76–99
[2017-05-12] MEDS: DexMEDEtomidine HCL IV 200 MCG in SODIUM CHLORIDE 0.9% 50ML 48 ML IV PRN ×3 (00:10→09:11)
[2017-05-12] MEDS: INSULIN ASPART 100 UNITS/ML 3 ML PEN SC SCH ×7 (00:19→23:59)
[2017-05-12] MEDS: MUPIROCIN 2% OINT 22 GM TUBE EXT SCH ×3 (00:23→20:46)
[2017-05-12] MEDS: VANCOMYCIN INJ 2,000 MG in SODIUM CHLORIDE 0.9% 500ML 500 ML IV SCH (01:55)
[2017-05-12] MEDS: HEPARIN 25,000 UNIT/500ML D5W 500 ML IV PRN (01:55)
[2017-05-12] MEDS: PIPERACILL/TAZOBAC IV 4.5 GM in DEXTROSE 5% 100ML IV SCH ×3 (04:39→20:43)
[2017-05-12 05:44] LABS: HEMATOCRIT 38.3 % (42-52); HEMOGLOBIN 11.9 g/dL (14.0-18.0); MEAN CORPUSCULAR HEMOGLOBIN 30.4 pg (25-34); MEAN CORPUSCULAR HGB CONC 31.1 g/dl (32-36); MEAN PLATELET VOLUME 9.6 fL (7.4-10.4); PLATELET COUNT 178 K/uL (130-400); RED CELL DISTRIBUTION WIDTH CV 14.6 % (11.5-14.5); RED CELL DISTRIBUTION WIDTH SD 51.7 fL (36.4-46.3); WHITE BLOOD COUNT 9.73 K/uL (4.8-10.8)
[2017-05-12 05:57] LABS: PTT PATIENT 40.4 SECONDS (21.0-31.0)
[2017-05-12 06:13] LABS: CALCIUM 8.3 mg/dl (8.5-10.1); CREATININE 1.65 mg/dl (0.60-1.40); POTASSIUM 4.3 mmol/L (3.5-5.1)
[2017-05-12 06:23] LABS: PHOSPHORUS 2.5 mg/dl (2.5-4.9)
[2017-05-12] MEDS ORDERED: HEPARIN IV BOLUS 10,000 UNIT in SYRINGE 0 ML IV ONE ×2 (06:45→17:00)
[2017-05-12] MEDS ORDERED: INSULIN ASPART 100 UNITS/ML 3 ML PEN SC STA (06:57)
--- NOTE | 2017-05-12 07:32 | DIAGNOSTIC IMAGING REPORT ---
CHEST ONE VIEW PORTABLE CLINICAL HISTORY: 71 years-old Male presenting with Intubation. TECHNIQUE: Portable upright AP view of the chest was obtained. COMPARISON: 05/11/2017. FINDINGS: Endotracheal tube terminates over 8 cm from the perlita. Nasogastric tube descends below the diaphragm, terminus not visualized. Left upper extremity PICC terminates in the left brachiocephalic vein. Atherosclerosis of aortic arch. Cardiac silhouette moderately enlarged, unchanged. Prominence of pulmonary vasculature stable slightly decreased from prior. Obscuration of the left hemidiaphragm with slight interval decrease in aeration of the left lung base. Left pleural effusion may be present. No pneumothorax. Bandlike opacity at the right lung base persists. Degenerative changes of the thoracic spine. IMPRESSION: 1. Appropriately positioned lines and tubes. 2. Cardiomegaly with evidence of volume overload. 3. Left basilar opacity slightly worsened from prior. This could represent atelectasis secondary to the presence of a left pleural effusion, asymmetric pulmonary edema, infection, or aspiration. 4. Small left pleural effusion. Electronically signed by: Pk Duran M.D. 05/12/2017 7:30 AM Dictated Date/Time: 05/12/2017 7:28 AM
--- NOTE | 2017-05-12 08:46 | Wound Consultation: Inpatient ---
Wound Consultation Date of Consultation: May 10, 2017. Attending Physician: Gia Rodriguez DO Reason for Consultation: Ulceration and edema of the right lower extremity History of Present Illness Patient currently is lying in a ICU bed intubated. Patient unable to give any pertinent history at this time. Patient's is present and states that he has had chronic swelling and ulcerations of his right lower leg for many years. Patient is been under the care of the wound clinic in the [facility]. She states that the appearance of the extremity is similar to what she has seen recently. Patient's current status primarily at this time revolves around respiratory failure. Further history is deferred due to the patient's current critical medical condition. Social History Smoking Status: Never Smoker Smokeless Tobacco Use: No Alcohol Use: none Drug Use: none Occupation Status: retired Allergies Coded Allergies: No Known Allergies (Unverified , 05/09/17) Home Medications Scheduled Amoxicillin (Amoxil), 1 CAP PO BID Aspirin (Aspirin Ec), 81 MG PO DAILY Ciprofloxacin Tab (Cipro), 500 MG PO BID Furosemide (Lasix), 40 MG PO BID Hctz/Losartan (Hyzaar 12.5MG/50MG), 1 TAB PO DAILY Mesalamine (Apriso), 1,500 MG PO DAILY Metformin Hcl (Glucophage), 1,000 MG PO BID Potassium Chloride (Micro-K Ext Rel), 20 MEQ PO DAILY Sulfamethoxazole-Trimethoprim (Bactrim 400MG/80MG), 1 TAB PO BID [prednisone mana 0.12%], 1 DROP OPB TID Scheduled PRN Tramadol (Ultram), 50 MG PO Q4H PRN for Pain Inpatient Medications Current Inpatient Medications Medications (Trade) Dose Ordered Sig/Kathe Route Start Time Stop Time Status Last Admin Dose Admin Ondansetron HCl (Zofran Inj) 4 mg Q6H PRN IV 05/09/17 22:00 06/08/17 21:59 Nitroglycerin (Nitrostat Tab) 0.4 mg UD PRN SL 05/09/17 22:00 06/08/17 21:59 Glucose (Glucose 40% Gel) 15-30 GRAMS 15 GRAMS... UD PRN PO 05/09/17 22:00 06/08/17 21:59 Glucose (Glucose Chew Tab) 4-8 Tablets 4 Tabl... UD PRN PO 05/09/17 22:00 06/08/17 21:59 Dextrose (Dextrose 50% 50ML Syringe) 25-50ML OF 50% DW IV FOR... UD PRN IV 05/09/17 22:00 06/08/17 21:59 Glucagon (Glucagon Inj) 1 mg UD PRN SQ 05/09/17 22:00 06/08/17 21:59 Miscellaneous Information (Consult) 1 ea UD PRN N/A 05/09/17 22:15 06/08/17 22:14 Miscellaneous Information (Consult) 1 ea UD PRN N/A 05/09/17 22:30 06/08/17 22:29 Miscellaneous Information (Order Awaiting Action) 1 ea QS N/A 05/10/17 00:00 06/09/17 00:00 Piperacillin Sod/ Tazobactam Sod 4.5 gm/Dextrose 120 ml @ 30 mls/hr Q8H IV 05/10/17 04:00 05/16/17 23:59 05/12/17 04:39 30 MLS/HR Fentanyl Citrate (Fentanyl Inj) 100 mcg Q2H PRN IV 05/10/17 08:45 05/24/17 08:44 05/11/17 19:45 100 MCG Midazolam HCl (Versed Inj) 2 mg Q2H PRN IV 05/10/17 08:45 06/09/17 08:44 05/11/17 19:45 2 MG Famotidine 20 mg/ Syringe 5 ml @ 2.5 mls/min Q12 IV 05/10/17 09:30 06/09/17 09:29 05/11/17 19:36 2.5 MLS/MIN Enteral Nutritional Formula (Peptamen Intense VHP) 1,000 ml UD OG 05/10/17 09:00 06/09/17 08:59 05/10/17 09:53 1,000 ML Enteral Nutritional Formula (Prosource No Carb) 30 ml BID PO 05/10/17 09:00 06/09/17 08:59 05/11/17 19:37 30 ML Ascorbic Acid (Vitamin C Tab) 500 mg QAM PO 05/10/17 09:00 06/09/17 08:59 05/11/17 08:30 500 MG Zinc Sulfate (Zinc Sulfate Cap) 220 mg QAM PO 05/10/17 09:00 06/09/17 08:59 05/11/17 08:30 220 MG Multivitamins Therapeutic (Cerovite Liquid) 15 ml QAM PO 05/10/17 09:00 06/09/17 08:59 05/11/17 08:30 15 ML Heparin Sodium/ Dextrose 500 ml @ 66 mls/hr Q7H35M PRN IV 05/10/17 11:00 06/09/17 10:59 05/12/17 01:55 56 MLS/HR Dexmedetomidine HCl 200 mcg/ Sodium Chloride 50 ml @ 0 mls/hr Q0M PRN IV 05/10/17 18:09 05/14/17 18:08 05/12/17 01:55 10.4 MLS/HR Modafinil (proVIGIL TAB) 200 mg QAM PO 05/11/17 09:00 06/10/17 08:59 05/11/17 09:27 200 MG Miscellaneous Information (Consult Glycemic Management Pharmacy) 1 ea UD PRN N/A 05/11/17 09:15 06/10/17 09:14 Methylprednisolone Sodium Succinate 40 mg/Syringe 0.64 ml @ 1.5 mls/min Q12 IV 05/12/17 09:00 06/11/17 08:59 Insulin Aspart (novoLOG ASPART) SLIDING SCALE If C... Q4 SC 05/11/17 11:00 06/10/17 10:59 05/12/17 00:19 21 UNITS Insulin Glargine (Lantus Solostar Pen) QPM SC 05/11/17 21:00 05/12/17 08:59 05/11/17 19:40 25 UNITS Furosemide (Lasix Tab) 20 mg BID PO 05/11/17 21:00 06/10/17 20:59 05/11/17 19:37 20 MG Prednisolone Acetate (Pred Forte 1% Oph Susp (PER DROP CHARGE)) 1 drop DAILY OPR 05/12/17 09:00 06/11/17 08:59 Future Hold Prednisolone Acetate (Pred Forte 1% Oph Susp (PER DROP CHARGE)) 1 drop TID OPL 05/11/17 21:00 06/10/17 20:59 Future Hold Mupirocin (Bactroban 2% Oint) 1 appln BID EXT 05/11/17 21:15 05/16/17 21:14 05/12/17 00:23 1 APPLN Physical Exam Date Time Temp Pulse Resp B/P (MAP) Pulse Ox O2 Delivery O2 Flow Rate FiO2 05/12/17 07:28 50 05/12/17 06:01 56 22 128/59 (82) 95 Mechanical Ventilator 50 05/12/17 05:57 50 05/12/17 05:31 55 22 119/63 (81) 96 05/12/17 05:31 55 22 119/63 (81) 96 05/12/17 05:01 56 22 125/65 (85) 95 05/12/17 04:31 56 22 118/61 (80) 86 05/12/17 04:01 36.6 54 22 124/62 (82) 95 Mechanical Ventilator 50 05/12/17 04:00 Mechanical Ventilator 50 05/12/17 04:00 50 05/12/17 03:31 54 22 119/64 (82) 95 05/12/17 03:01 54 22 122/62 (82) 95 05/12/17 02:01 54 22 118/65 (82) 95 Mechanical Ventilator 50 05/12/17 01:32 55 22 123/58 (79) 95 05/12/17 01:20 50 05/12/17 01:01 57 22 127/63 (84) 95 05/12/17 00:31 56 22 126/64 (84) 95 05/12/17 00:01 36.6 58 22 116/53 (74) 95 05/11/17 23:59 Mechanical Ventilator 50 05/11/17 23:59 50 05/11/17 23:01 57 21 120/64 (82) 95 05/11/17 22:52 50 05/11/17 22:01 62 22 118/59 (78) 95 Mechanical Ventilator 50 05/11/17 21:02 60 22 113/59 (77) 95 05/11/17 20:01 36.4 65 23 121/58 (79) 95 Mechanical Ventilator 50 05/11/17 20:00 Mechanical Ventilator 50 05/11/17 20:00 50 05/11/17 19:50 50 05/11/17 19:01 64 22 125/57 (79) 95 05/11/17 18:00 62 22 120/59 (79) 95 Mechanical Ventilator 50 05/11/17 17:57 50 05/11/17 16:00 36.4 70 30 109/58 (75) 93 CPAP 40 05/11/17 16:00 40 05/11/17 16:00 93 Mechanical Ventilator 40 05/11/17 15:40 40 05/11/17 14:00 75 24 118/51 (73) 92 BiPAP 40 05/11/17 12:00 93 Mechanical Ventilator 40 05/11/17 12:00 37.2 77 23 104/53 (70) 93 CPAP 40 05/11/17 12:00 40 05/11/17 11:47 40 05/11/17 10:00 71 14 101/57 (72) 95 CPAP 40 05/11/17 08:41 40 General: The patient is lying in a hospital bed in no apparent distress. Alert. Morbidly obese HEENT: Pupils equal and reactive to light. Sclera clear, EOM intact. Neck: Supple, No JVD noted Chest: CTA in all morales. Intubated on a vent Heart: RRR without murmurs, S3, S4, thrills, rubs or heaves . Extremities: Marked edema noted to the right lower extremity. Significant ulcerative grooves are noted below the knee to the ankle region. This is primarily located in the anterior lateral regions measuring 21 x 20 x 0.2 cm. Swelling was significant scattered eschar formation is noted throughout the foot and digits. No active drainage or odor is noted. Pulses are difficult to obtain due to the edema. ABIs will be obtained. Neurological: Alert with limited responses due to the patient's current acute medical condition. Laboratory Results Last 24 Hours Test 05/11/17 10:51 05/11/17 15:38 05/11/17 19:32 05/12/17 00:09 Bedside Glucose 248 mg/dl 220 mg/dl 223 mg/dl 273 mg/dl Test 05/12/17 00:31 05/12/17 05:29 05/12/17 05:30 05/12/17 05:33 Vancomycin Level Trough 25.1 mcg/ml Bedside Glucose 234 mg/dl 246 mg/dl White Blood Count 9.73 K/uL Red Blood Count 3.91 M/uL Hemoglobin 11.9 g/dL Hematocrit 38.3 % Mean Corpuscular Volume 98.0 fL Mean Corpuscular Hemoglobin 30.4 pg Mean Corpuscular Hemoglobin Concent 31.1 g/dl RDW Standard Deviation 51.7 fL RDW Coefficient of Variation 14.6 % Platelet Count 178 K/uL Mean Platelet Volume 9.6 fL Activated Partial Thromboplast Time 40.4 SECONDS Partial Thromboplastin Ratio 1.6 Sodium Level 138 mmol/L Potassium Level 4.3 mmol/L Chloride Level 99 mmol/L Carbon Dioxide Level 35 mmol/L Anion Gap 4.0 mmol/L Blood Urea Nitrogen 31 mg/dl Creatinine 1.65 mg/dl Est Creatinine Clear Calc Drug Dose 77.2 ml/min Estimated GFR () 48.0 Estimated GFR (Non- 41.4 BUN/Creatinine Ratio 19.0 Random Glucose 261 mg/dl Calcium Level 8.3 mg/dl Phosphorus Level 2.5 mg/dl Magnesium Level 2.2 mg/dl Test 05/12/17 06:09 Blood Gas Sample Site R Radial Bedside Blood Gas pH (LAB) 7.41 Bedside Blood Gas pCO2 (LAB) 58 mmHg Bedside Blood Gas pO2 (LAB) 65 mmHg Bedside Blood Gas HCO3 (LAB) 37 meq/L Bedside Blood Gas Total CO2 39 mEq/l Bedside Blood Gas Base Excess (LAB) 12.0 meq/L Bedside Blood Gas O2 Saturation 93.0 % Colin Test Pass Oxygen Delivery Device Ventilator Bedside Oxygen Rate (breaths/min) 22 Blood Gas Minute Ventilation 12.4 Bedside FiO2 50 % Blood Gas Tidal Volume 550 Blood Gas PEEP 10 Assessment & Plan Assessment: Cellulitis in the face of chronic lymphedema right lower extremity Plan: At this time no debridement is indicated. The site will be dressed with Aquacel Ag ABGs and Tubigrip pending DEANDRA evaluation for compression therapy. If his DEANDRA is above 0.8 then a co-bandlike compression wrap will be applied to further improve the edema. Patient will continue to be monitored during his hospital course.
[2017-05-12] MEDS ORDERED: INSULIN GLARGINE SOLOSTAR 100 UNITS/ML 3 ML PEN SC STA (08:53)
[2017-05-12] MEDS ORDERED: SODIUM CHLORIDE 0.9% IV PRN (09:00)
[2017-05-12] MEDS ORDERED: PREDNISOLONE ACET 1% OPR SCH (09:00)
[2017-05-12] MEDS ORDERED: HEPARIN IV PRN (09:00)
[2017-05-12] MEDS: PROSOURCE NOCARB 30ML/PKT PO SCH ×2 (09:10→20:49)
[2017-05-12] MEDS: ZINC SULFATE 220 MG CAP PO SCH (09:10)
[2017-05-12] MEDS: FUROSEMIDE 20 MG TAB PO SCH ×3 (09:10→21:30)
[2017-05-12] MEDS: MULTIVITAMINS W/MINERALS 15ML UDP PO SCH (09:10)
[2017-05-12] MEDS: ASCORBIC ACID 500 MG TAB PO SCH (09:10)
[2017-05-12] MEDS: METHYLPREDNISOLONE IV 40 MG in SYRINGE 0 ML IV SCH ×2 (09:11→20:45)
[2017-05-12] MEDS: PEPTAMEN INTENSE VHP 1000ML BAG OG SCH (10:46)
--- NOTE | 2017-05-12 10:46 | Pharmacy Progress Note ---
Pharmacy Antibiotic Prog Note Date of Service May 12, 2017. Subjective The patient is currently receiving vancomycin 2000 mg IV every 12 hours. The patient is currently on day # 3 of vancomycin IV therapy. Objective Height (Feet): 5 Height (Inches): 11.00 Weight (Kilograms): 214.600 Lab Results (24hrs): Test 05/12/17 00:31 05/12/17 05:29 05/12/17 05:30 05/12/17 05:33 Vancomycin Level Trough 25.1 mcg/ml (SEE COMMENT) Bedside Glucose 234 mg/dl (70-99) 246 mg/dl (70-99) White Blood Count 9.73 K/uL (4.8-10.8) Red Blood Count 3.91 M/uL (4.7-6.1) Hemoglobin 11.9 g/dL (14.0-18.0) Hematocrit 38.3 % (42-52) Mean Corpuscular Volume 98.0 fL (80-100) Mean Corpuscular Hemoglobin 30.4 pg (25-34) Mean Corpuscular Hemoglobin Concent 31.1 g/dl (32-36) RDW Standard Deviation 51.7 fL (36.4-46.3) RDW Coefficient of Variation 14.6 % (11.5-14.5) Platelet Count 178 K/uL (130-400) Mean Platelet Volume 9.6 fL (7.4-10.4) Activated Partial Thromboplast Time 40.4 SECONDS (21.0-31.0) Partial Thromboplastin Ratio 1.6 Sodium Level 138 mmol/L (136-145) Potassium Level 4.3 mmol/L (3.5-5.1) Chloride Level 99 mmol/L (98-107) Carbon Dioxide Level 35 mmol/L (21-32) Anion Gap 4.0 mmol/L (3-11) Blood Urea Nitrogen 31 mg/dl (7-18) Creatinine 1.65 mg/dl (0.60-1.40) Est Creatinine Clear Calc Drug Dose 77.2 ml/min Estimated GFR () 48.0 Estimated GFR (Non- 41.4 BUN/Creatinine Ratio 19.0 (10-20) Random Glucose 261 mg/dl (70-99) Calcium Level 8.3 mg/dl (8.5-10.1) Phosphorus Level 2.5 mg/dl (2.5-4.9) Magnesium Level 2.2 mg/dl (1.8-2.4) Test 05/12/17 06:09 Blood Gas Sample Site R Radial Bedside Blood Gas pH (LAB) 7.41 (7.35-7.45) Bedside Blood Gas pCO2 (LAB) 58 mmHg (35-46) Bedside Blood Gas pO2 (LAB) 65 mmHg (80-95) Bedside Blood Gas HCO3 (LAB) 37 meq/L (19-24) Bedside Blood Gas Total CO2 39 mEq/l (24-31) Bedside Blood Gas Base Excess (LAB) 12.0 meq/L (-9-1.8) Bedside Blood Gas O2 Saturation 93.0 % (90-95) Colin Test Pass Oxygen Delivery Device Ventilator Bedside Oxygen Rate (breaths/min) 22 Blood Gas Minute Ventilation 12.4 Bedside FiO2 50 % Blood Gas Tidal Volume 550 Blood Gas PEEP 10 Assessment & Plan Assessment * 71 yo morbidly obese male transferred from [facility] on 05/09 PM for respiratory failure. Uses home O2, currently on BiPAP. * No previous admissions to [facility] * Possible sources of infection * Pulmonary - wet cough w hypoxic respiratory failure. But CXR @ [facility] with no acute cardiopulmonary process * Urinary - abnormal UA @ [facility]. Patient denied burning on urination. * Cellulitis - chronic severe LE wound, follows w wound clinic. On ciprofloxacin, Bactrim, and amoxicillin at home. * Cultures * Negative MRSA nasal swab * RLE ulcer w E. coli, Pseudomonas, Corynebacterium, and un-speciated GNR. E. coli and Pseudomonas both sensitive to Zosyn. * Antibiotics * Zosyn and vancomycin day 3. OK for now. * Blood, urine cultures with no growth to date * Renal * SCr with modest increase: 1.38 to 1.65 mg/dL over 24 hours. * Unknown baseline SCr Vancomycin * Goal trough level 15-20 mcg/mL * Trough of 25.1 mcg/mL is supratherapeutic - possibly 2nd worsening renal function or may be due to accumulation in obese patient * Current dose is 2000 mg (9.3 mg/kg) IV q12h * Further vancomycin dosing to be dependent on 18 hour random level. * Note: last dose ordered for 05/12 @ 0000, but not administered until 0155 Plan * Discontinue ongoing vancomycin order * Random level 2/28 @ 1999 Pharmacy will continue to follow and will adjust dose/frequency as necessary. Thank you
[2017-05-12] MEDS: MODAFINIL 100 MG TAB PO SCH (11:15)
[2017-05-12] MEDS: FAMOTIDINE IV INJ 20 MG in SYRINGE 3 ML IV SCH ×2 (11:15→20:48)
--- NOTE | 2017-05-12 11:16 | INFECT. DISEASE CONSULTATION ---
DATE OF CONSULTATION: 05/12/2017 HISTORY OF PRESENT ILLNESS: This is a 71-year-old gentleman who was [facility] for worsening shortness of breath and lower extremity edema. He was transferred to [facility] and subsequently intubated for respiratory distress. He is being treated for heart failure. He does have a history of a chronic right lower extremity wound for which he follows at a wound care center in [place]. He did have a superficial wound culture obtained on the which grew E. coli pseudomonas and now a third gram negative gadiel which is yet to be identified. He was initially on vancomycin and Zosyn. His vancomycin was discontinued yesterday. He remains on Zosyn and the E. coli and pseudomonas are both sensitive. He has not had a leukocytosis. He is afebrile. Blood and urine cultures are negative. His is at the bedside and states that he will plan to follow with the wound care center in [place], once he is discharged from the hospital. On my exam today, the patient is awake on the ventilator and denies any chest pain or cough. He denies any fevers or chills. His remaining review of systems is limited, but unremarkable. FAMILY HISTORY: Noncontributory. PAST MEDICAL HISTORY: Significant for type 2 diabetes, obesity, hypertension, lower extremity wounds and congestive heart failure. ALLERGIES: He has no known drug allergies. SOCIAL HISTORY: Negative for tobacco use, alcohol use or drug use. CURRENT MEDICATIONS: Include subQ heparin, Solu-Medrol, Bactroban ointment, Lasix, insulin, Provigil, famotidine, tube feeds, vitamin C, zinc, multivitamin, fentanyl, Versed, Zosyn, and Zofran. PHYSICAL EXAMINATION: VITAL SIGNS: He is afebrile, pulse 56, respiratory rate 22, blood pressure 114/66, oxygen saturation is 98% on 50% FIO2. GENERAL: He is awake on the ventilator. HEENT: Mucous membranes are dry. HEART: Regular. LUNGS: Clear anteriorly with decreased breath sounds at the bases bilaterally. ABDOMEN: Soft and nondistended. LOWER EXTREMITY: There is lower extremity edema bilaterally. Right lower extremity dressing is clean, dry and intact. LABORATORY STUDIES: CBC today reveals a white blood cell count of 9.7, hemoglobin 11.9, platelets are 178. Chemistry panel reveals a sodium of 138, potassium 4.3, chloride 99, bicarbonate 35, BUN 31, creatinine 1.6, glucose is 246. UA had 5-10 wbc's and no bacteria. Vancomycin level today is 25, this was discontinued yesterday. Flu swab was negative in the ER. A wound culture again is growing E. coli pseudomonas, both sensitive to Zosyn and a third gram negative gadiel. Blood cultures from the 25th are no growth to date x2 sets. The urine culture was negative as well. IMAGING DATA: Most recent chest x-ray was done today and shows evidence of volume overload. Foot and ankle x-rays were done yesterday which show no evidence of osteomyelitis. IMPRESSION AND PLAN: Right lower extremity wound. There are no oral options as both E. coli and pseudomonas are resistant to quinolone antibiotics and he will likely require a course of Zosyn. When able, a PICC line can be placed. He will have continued wound care followup in [place] and antibiotic course can be adjusted at that time. Thank you for this consultation.
--- NOTE | 2017-05-12 11:22 | Progress Note ---
Progress Note Date of Service May 12, 2017. Progress Note ID Consult Dictated #[id number] A/P: 1. RLE wound - polymicrobial -continue zoysn, will likely need 14 days minimum, no po options available with quinolone resistant pseudomonas -will need picc line when able -Will need f/u at wound center post d/c - follows at [facility], states plan is to continue care there post d/c -No new ID recs, thank you
--- NOTE | 2017-05-12 11:37 | Progress Note ---
Progress Note Date of Service May 12, 2017. Progress Note Official consult to follow. USN shows an occluded femoral vein. This appear very echogenic and not distended. This would make it an old clot. I would recommend stopping the heparin prior to trach and then restarting it 2 to 6 hours after. I would also recommend a repeat USN prior to d/c to see if there has been any new clot formed. If no new clot is seen can most likely be discharged without anticoagulation unless bedridden, then would just give prophylactic doses. If new clot is seen then would have to be anticoagulated at d/c. Thank you very much for letting me participate in the care of this patient.
--- NOTE | 2017-05-12 13:04 | Surgery Consultation ---
Consultation Date of Service May 12, 2017. Chief Complaint DVT, possible need IVC filter History of Present Illness The patient is a 71 year old male with multiple medical problems, including HTN , DMII, admitted with respiratory failure and DVT, seen in consultation today for possible IVC filter insertion while anticaogulation interrupted for tracheostomy planned tomorrow. Pt currently intubated, but responds appropriately. Uses paper/pen for communication. Denies ANN, fever, chills, chest pain, SOB, abd pain, N/V, rest pain, leg pain, other complaints. Review of imaging demonstrates echogenic clot in LLE. Pt denies hx of DVT in past to his knowledge. Vitals Vital Signs Past 12 Hours Date Time Temp Pulse Resp B/P (MAP) Pulse Ox O2 Delivery O2 Flow Rate FiO2 05/12/17 11:30 Mechanical Ventilator 50 05/12/17 11:30 37.0 57 20 123/67 (85) 98 Mechanical Ventilator 50 05/12/17 11:30 40 05/12/17 11:27 40 05/12/17 10:00 37.0 56 22 114/66 (82) 98 Mechanical Ventilator 50 05/12/17 07:30 36.8 54 22 114/62 (79) 98 Mechanical Ventilator 50 05/12/17 07:30 Mechanical Ventilator 50 05/12/17 07:30 50 05/12/17 07:28 50 05/12/17 06:01 56 22 128/59 (82) 95 Mechanical Ventilator 50 05/12/17 05:57 50 05/12/17 05:31 55 22 119/63 (81) 96 05/12/17 05:31 55 22 119/63 (81) 96 05/12/17 05:01 56 22 125/65 (85) 95 05/12/17 04:31 56 22 118/61 (80) 86 05/12/17 04:01 36.6 54 22 124/62 (82) 95 Mechanical Ventilator 50 05/12/17 04:00 Mechanical Ventilator 50 05/12/17 04:00 50 05/12/17 03:31 54 22 119/64 (82) 95 05/12/17 03:01 54 22 122/62 (82) 95 05/12/17 02:01 54 22 118/65 (82) 95 Mechanical Ventilator 50 05/12/17 01:32 55 22 123/58 (79) 95 05/12/17 01:20 50 05/12/17 01:01 57 22 127/63 (84) 95 Allergies Coded Allergies: No Known Allergies (Unverified , 05/09/17) Home Medications Scheduled Amoxicillin (Amoxil), 1 CAP PO BID Aspirin (Aspirin Ec), 81 MG PO DAILY Ciprofloxacin Tab (Cipro), 500 MG PO BID Furosemide (Lasix), 40 MG PO BID Hctz/Losartan (Hyzaar 12.5MG/50MG), 1 TAB PO DAILY Mesalamine (Apriso), 1,500 MG PO DAILY Metformin Hcl (Glucophage), 1,000 MG PO BID Potassium Chloride (Micro-K Ext Rel), 20 MEQ PO DAILY Sulfamethoxazole-Trimethoprim (Bactrim 400MG/80MG), 1 TAB PO BID [prednisone mana 0.12%], 1 DROP OPB TID Scheduled PRN Tramadol (Ultram), 50 MG PO Q4H PRN for Pain Problem List Medical Problems: (1) Acute respiratory failure (2) Chronic hypercapnic respiratory failure (3) DVT (deep venous thrombosis) (4) Elevated creatine kinase (5) Morbid obesity with BMI of 60.0-69.9, adult (6) Urinary tract infection Surgical / Medical History Hx Cardiac Surgery: No Hx Abdominal Surgery: No Hx Cancer Surgery: No Hx Thoracic Surgery: No Hx Orthopedic: No Hx Urinary Tract Surgery: No HX Other Surgery: No Past Medical/Surgical History: Diabetes, Hypertension Family History + HTN and DMII Social History Smoking Status: Never Smoker Hx Alcohol Use - Type & Amnt: No Hx Substance Use -Type & Amnt: No Review of Systems Constitutional: No chills, No malaise Skin: No change in color Eyes: No visual changes ENMT: No sore throat Respiratory: No cough, No hemoptysis Cardiovascular: No chest pain Gastrointestinal: No abdominal pain, No nausea, No vomiting Neurologic: No dizziness, No headache, No numbness, No tingling Physical Exam Constitutional: General Apperance: obese Level of Distress: NAD, chronically ill Psychiatric: Mental Status: active & alert, normal mood, normal affect Orientation: oriented except where noted, to time, to place, to person Memory: recent memory normal, remote memory normal Head: normocephalic, atraumatic Eyes: EOM: EOMI ENMT: normal ENT inspection, hearing grossly normal Neck: supple, trachea midline Lungs: Respiratory effort: no dyspnea, pertinent finding (intubated) Auscultation: no rales/crackles, no rhonchi Cardiovascular: Apical Impulse: not displaced Heart Auscultation: RRR, no rubs, no gallops Peripheral Pulses: Pulses: full and equal, in all extremities except if noted Bruits: none appreciated Carotid Pulse: normal on the left, normal on the right Brachial Pulses: normal on the left, normal on the right Radial Pulse: normal on the left, normal on the right Femoral Pulse: normal on the left, normal on the right Posterior Tibialis Pulse: decreased on the left, decreased on the right Dorsalis Pedis Pulse: decreased on the left, decreased on the right Abdomen: Bowel Sounds: normal Inspection & Palpation: soft, non-distended, no tenderness, guarding & rebound Musculoskeletal: normal tone Extremities: Upper Right: no cyanosis, no edema, no varicosities Upper Left: no cyanosis, no edema, no varicosities Lower Right: no cyanosis, no varicosities, no palpable cord, edema (trace) Lower Left: no cyanosis, no varicosities, no palpable cord, edema (trace) Neurologic: Cranial Nerves: grossly intact Sensation: grossly intact Assessment and Plan ASSESSMENT and PLAN: DVT respiratory failure Pt's imaging reviwewed by Dr Mayberry, does not recommend IVC filter insertion d/t age of DVT. Pt's anticaogulation can be interrupted for tracheostomy tomorrow. Do recommend pt to undergo new venous US eval prior to discharge to see whether any new DVT is present. These recs were also discussed with Dr Jalloh by Dr Mayberry this morning. Please call if needed.
[2017-05-12] MEDS: METHYLCELLULOSE POWDER 454 GM JAR PO SCH (14:12)
--- NOTE | 2017-05-12 14:55 | Pharmacy Progress Note ---
Glycemic Control Progress Note Date of Service May 12, 2017. Scope Glycemic Pharmacist consulted for glycemic control to write orders per [facility] inpatient glycemic control protocol. Objective Accuchecks BSG (last 24hrs): Test 05/11/17 15:38 05/11/17 19:32 05/12/17 00:09 05/12/17 05:30 Bedside Glucose 220 mg/dl (70-99) 223 mg/dl (70-99) 273 mg/dl (70-99) Random Glucose 261 mg/dl (70-99) Test 05/12/17 05:33 05/12/17 08:13 05/12/17 11:34 Bedside Glucose 246 mg/dl (70-99) 243 mg/dl (70-99) 225 mg/dl (70-99) HbA1c: Test 05/09/17 22:50 Hemoglobin A1c 6.9 % (4.5-5.6) H Recent Pertinent Medications Outpatient Anti-diabetic Regimen: * Metformin 1000 mg po BID * A1c = 6.9 % on 05/09/17 Outpatient Anti-Diabetic Meds Oral Agents Assessment & Plan ASSESSMENT: * 71 yo M T2DM on oral agent alone at home now with steroid-induced hyperglycemia * Changes to stressors/glucose administration * Changed heparin drip so mixed in NS (was running at > 50 mL/hr) * Steroids tapering from methylprednisolone 40 mg IV q6h to q12h * Tubefeeds held yesterday evening, now resuming * BSG's ranging 220-273 mg/dL over the last 24 hours - better control needed * Discussed starting insulin drip on ICU rounds this AM (BSG was 246 mg/dL). However, holding off until assessment of lunch BSG as significant changes were made to address hyperglycemia (removed dextrose from heparin drip, increased Lantus, steroids tapering) * Lunch BSG still elevated to 222 mg/dL, but this is trending down. Will continue to hold off on insulin drip for now. * Continue aggressive Novolog regimen - despite no change, anticipate that current regimen will be more effective at adequately controlling BSG's as steroids are tapering PLAN FOR INPATIENT GLYCEMIC CONTROL: * Hold outpatient oral diabetes medication * Increase Basal insulin with LANTUS 80 units x1 this AM. Additional Lantus tonight as follows: * Hold for BSG less than 140 mg/dL * 15 units for BSG 140-180 mg/dL * 25 units for BSG greater than 180 mg/dL * Correctional Insulin with NOVOLOG q4h * Goal Range: Low 120 mg/dL - High 160 mg/dL * Correction Factor: 8 mg/dL/unit * Nutritional / Prandial insulin per carb ratio of 1 unit per 3 grams CHO consumed * Please note that the plan above was derived based on current level of insulin resistance and hospital stress. These recommendations are appropriate for inpatient admission only. Plan of care upon discharge will need to be reassessed to avoid potential outpatient hypo/hyperglycemia. Thank you.
[2017-05-12 15:19] LABS: PTT PATIENT 40.6 SECONDS (21.0-31.0)
[2017-05-12] MEDS: FENTANYL CITRATE INJ 50 MCG/1 ML 2 ML VIAL IV PRN (16:36)
[2017-05-12] MEDS: DexMEDEtomidine HCL IV 400 MCG in SODIUM CHLORIDE 0.9% 100ML 96 ML IV PRN (16:40)
[2017-05-12] MEDS: HEPARIN IV PRN (17:24)
[2017-05-12] MEDS: SODIUM CHLORIDE 0.9% IV PRN (17:24)
--- NOTE | 2017-05-12 18:06 | Anesthesiology Progress Note ---
Anesthesia Progress Note Date of Service May 12, 2017. Progress Notes 71 yo male who presented from outside hospital with respiratory failure. Pt failed BiPAP and was intubated and then failed a trial of extubation. PMH of super morbid obesity, DANA on CPAP and home oxygen, chronic right LE cellulitis, and NIDDM. After admission patient was found to have acute UTI, LLE DVT, possible PE, CHF, and acute hypoxic/hypercarbic respiratory failure. Pt is currently intubated and sedated with Precedex but he was able to answer questions via writing. I explained the anesthetic plan for tomorrow with the patient, but full consent will require the patient's since he is receiving sedation. Cammie Sandoval MD, PhD Anesthesiology
[2017-05-12] MEDS: INSULIN GLARGINE SOLOSTAR 100 UNITS/ML 3 ML PEN SC SCH (20:50)
--- NOTE | 2017-05-12 22:36 | Progress Note ---
Subjective Date of Service: May 12, 2017. Subjective Pt evaluation today including: conversation w/ patient, physical exam 71 yo male is here for respiratory failure. Patient is intubated but awake. He communicates with board and marker. He states that he is getting a trach tomorrow. Denies any pain Objective Vital Signs Date Time Temp Pulse Resp B/P (MAP) Pulse Ox O2 Delivery O2 Flow Rate FiO2 05/12/17 22:01 61 22 121/59 (79) 93 Mechanical Ventilator 40 05/12/17 21:01 61 22 126/60 (82) 95 Mechanical Ventilator 40 05/12/17 20:06 40 05/12/17 20:01 36.8 64 17 131/59 (83) 94 Mechanical Ventilator 40 05/12/17 19:01 59 18 124/58 (80) 93 Mechanical Ventilator 40 05/12/17 18:02 37.2 57 16 134/75 (94) 98 Mechanical Ventilator 40 05/12/17 17:01 40 05/12/17 17:01 57 119/55 (76) 95 05/12/17 17:00 56 92 05/12/17 16:10 61 22 130/68 (88) 94 05/12/17 16:00 37.2 67 20 119/55 (76) 98 Mechanical Ventilator 40 05/12/17 16:00 40 05/12/17 16:00 Mechanical Ventilator 40 05/12/17 16:00 60 7 92 05/12/17 15:01 60 13 118/63 (81) 97 05/12/17 15:00 60 20 97 05/12/17 14:30 40 05/12/17 14:01 62 17 126/64 (84) 05/12/17 14:00 59 19 05/12/17 13:42 137 22 127/59 (81) 76 05/12/17 13:30 37.2 60 20 127/59 (81) 98 Mechanical Ventilator 50 05/12/17 13:00 59 22 98 05/12/17 12:01 57 18 139/60 (86) 97 05/12/17 12:00 56 9 97 05/12/17 11:30 Mechanical Ventilator 50 05/12/17 11:30 37.0 57 20 123/67 (85) 98 Mechanical Ventilator 50 05/12/17 11:30 40 05/12/17 11:27 40 05/12/17 11:01 58 14 126/65 (85) 97 05/12/17 11:00 56 18 96 05/12/17 10:02 59 8 114/66 (82) 99 05/12/17 10:00 37.0 56 22 114/66 (82) 98 Mechanical Ventilator 50 05/12/17 10:00 58 6 99 05/12/17 09:01 56 22 133/66 (88) 98 05/12/17 09:00 56 22 97 05/12/17 08:02 63 17 137/72 (93) 97 05/12/17 08:00 Mechanical Ventilator 50 05/12/17 08:00 61 22 96 05/12/17 07:30 36.8 54 22 114/62 (79) 98 Mechanical Ventilator 50 05/12/17 07:30 Mechanical Ventilator 50 05/12/17 07:30 50 05/12/17 07:28 50 05/12/17 07:02 58 17 114/62 (79) 97 05/12/17 07:00 56 22 96 05/12/17 06:01 56 22 128/59 (82) 95 Mechanical Ventilator 50 05/12/17 05:57 50 05/12/17 05:31 55 22 119/63 (81) 96 05/12/17 05:31 55 22 119/63 (81) 96 05/12/17 05:01 56 22 125/65 (85) 95 05/12/17 04:31 56 22 118/61 (80) 86 05/12/17 04:01 36.6 54 22 124/62 (82) 95 Mechanical Ventilator 50 05/12/17 04:00 Mechanical Ventilator 50 05/12/17 04:00 50 05/12/17 03:31 54 22 119/64 (82) 95 05/12/17 03:01 54 22 122/62 (82) 95 05/12/17 02:01 54 22 118/65 (82) 95 Mechanical Ventilator 50 05/12/17 01:32 55 22 123/58 (79) 95 05/12/17 01:20 50 05/12/17 01:01 57 22 127/63 (84) 95 05/12/17 00:31 56 22 126/64 (84) 95 05/12/17 00:01 36.6 58 22 116/53 (74) 95 05/11/17 23:59 Mechanical Ventilator 50 05/11/17 23:59 50 05/11/17 23:01 57 21 120/64 (82) 95 05/11/17 22:52 50 Physical Exam Comments: GENERAL: He is currently awake/ endotracheal tube in place HEENT: Mucous membranes are dry. HEART: Regular rate and rhythm LUNGS: Clear anteriorly with decreased breath sounds at the bases bilaterally. ABDOMEN: Soft and nondistended. LOWER EXTREMITY: edema (+2), I was present was dressing was removed of the right lower extremity, there appears to be chronic venous stasis ulcers with significant skin changes - Male: other (Syed present) Neuro: Awake, follows complex commands Laboratory Results Last 24 Hours Test 05/12/17 00:09 05/12/17 00:31 05/12/17 05:30 05/12/17 05:33 Bedside Glucose 273 mg/dl 246 mg/dl Vancomycin Level Trough 25.1 mcg/ml White Blood Count 9.73 K/uL Red Blood Count 3.91 M/uL Hemoglobin 11.9 g/dL Hematocrit 38.3 % Mean Corpuscular Volume 98.0 fL Mean Corpuscular Hemoglobin 30.4 pg Mean Corpuscular Hemoglobin Concent 31.1 g/dl RDW Standard Deviation 51.7 fL RDW Coefficient of Variation 14.6 % Platelet Count 178 K/uL Mean Platelet Volume 9.6 fL Activated Partial Thromboplast Time 40.4 SECONDS Partial Thromboplastin Ratio 1.6 Sodium Level 138 mmol/L Potassium Level 4.3 mmol/L Chloride Level 99 mmol/L Carbon Dioxide Level 35 mmol/L Anion Gap 4.0 mmol/L Blood Urea Nitrogen 31 mg/dl Creatinine 1.65 mg/dl Est Creatinine Clear Calc Drug Dose 77.2 ml/min Estimated GFR () 48.0 Estimated GFR (Non- 41.4 BUN/Creatinine Ratio 19.0 Random Glucose 261 mg/dl Calcium Level 8.3 mg/dl Phosphorus Level 2.5 mg/dl Magnesium Level 2.2 mg/dl Test 05/12/17 06:09 05/12/17 08:13 05/12/17 11:34 05/12/17 14:54 Blood Gas Sample Site R Radial Bedside Blood Gas pH (LAB) 7.41 Bedside Blood Gas pCO2 (LAB) 58 mmHg Bedside Blood Gas pO2 (LAB) 65 mmHg Bedside Blood Gas HCO3 (LAB) 37 meq/L Bedside Blood Gas Total CO2 39 mEq/l Bedside Blood Gas Base Excess (LAB) 12.0 meq/L Bedside Blood Gas O2 Saturation 93.0 % Colin Test Pass Oxygen Delivery Device Ventilator Bedside Oxygen Rate (breaths/min) 22 Blood Gas Minute Ventilation 12.4 Bedside FiO2 50 % Blood Gas Tidal Volume 550 Blood Gas PEEP 10 Bedside Glucose 243 mg/dl 225 mg/dl Activated Partial Thromboplast Time 40.6 SECONDS Partial Thromboplastin Ratio 1.6 Test 05/12/17 16:10 05/12/17 21:53 Bedside Glucose 190 mg/dl Assessment and Plan Patient is a 71 year old male with a past medical history of Diabetes, Morbid Obesity, Hypertension, Chronic LE wound with cellulitis following with Dr. Acosta at wound clinic, and CHF that presents fro [facility] with worsening shortness of breath and lower extremity cellulitis Acute Hypoxic Respiratory Failure likely obesity hypoventilation syndrome BMI is 66 -Patient failed extubation/ and was reintubated 2 days ago. -Family meeting yesterday led to decision of a trach -procedure will be done tomorrow. - DANA/ [place] for cor pulmonale secondary to likely multiple etiologies -Patient remains critically ill -Patient's baseline pH likely near 7.33 based on calculations with bicarb in 40s -currently 7.41 (improved from 7.22) -palliative care on board. UTI - [facility] - Leuk Est, Nit, WBC positive - Repeat UA, Urine Culture - Syed catheter in place -On Zosyn Left lower extremity venous thromboembolism * Heparin infusion Cellulitis/ Chronic Right Lower Extremity Wound - Antibiotics as above -ID on board - Wound Culture - Wound care consult with Dr. Acosta - Wound Care nurse - Currently dressed with Vaseline, Gauze, Kerlex, and WILLIAM wrap - Continue home Tramadol DM - Hold home metformin - ISS with BSG checks AC/HS CHF - Lasix 20mg PO BID Glaucoma - Continue Prednisolone Opth drops Right bundle branch block * Troponins negative 1, largely unremarkable BNP DVT - Heparin infusion
[2017-05-12 22:46] LABS: PTT PATIENT 60.9 SECONDS (21.0-31.0)
--- NOTE | 2017-05-12 23:48 | Critical Care Progress Note ---
Critical Care Progress Note Date of Service May 12, 2017. ICU Day ICU Day Number: [address] Jalloh Subjective Patient relatively comfortable, denying pain, communicating via writing Objective Head: normocephalic Eyes: PERRLA ENT: other (Endotracheal tube in place) Neck: no tenderness, trachea midline, no stridor, no nuchal rigidity Respiratory: other (Difficult exam, distant breath sounds) Cardiovasular: regular rate/rhythm, other (Difficult exam distant heart sounds) Abdomen: other (No tenderness with palpation) Genitourinary - Male: other (Syed present) Lower Extremities: edema (+2), other (I removed the dressing of the right lower extremity, there appears to be chronic venous stasis ulcers with significant skin changes) Edema: Bilateral LE (2+) Neuro: Alert, following complex commands Assessment & Plan PLAN: Neuro: Patient maintained on Precedex infusion, this was started to facilitate noninvasive ventilation overnight. * Precedex infusion has been implicated and improved REM sleep, will continue with Precedex infusion for sedation at this time Resp: Acute on chronic hypercarbic respiratory failure * Patient's baseline pH likely near 7.33 based on calculations with bicarb in 40s Obesity hypoventilation syndrome * Patient clearly obstructs his airway while sleeping, has several apnea events during the day * Patient does not tolerate CPAP, requires very high pressures and routinely removes his mask * Patient likely has underlying COPD as well. * In discussing treatment options, patient has failed CPAP therapy, has also failed a trial of extubation, given chronicity of findings and the fact the patient would not be a candidate for gastric bypass surgery, I feel he would be appropriate candidate for elective tracheostomy * Discussed risks benefits with the patient, patient's , and children, all in agreement that the patient wants to proceed with elective tracheostomy * I also discussed that the tracheostomy in an of itself is only one small aspect to a very large multi-factorial process and even with proceeding this may not liberate him from a ventilator as this does not treat his underlying COPD * The tracheostomy will facilitate bypassing his upper airway obstructions as well as allow us to better facilitate physical therapy for the patient to prevent further decompensation CV: Mildly dilated right ventricle * Concern for cor pulmonale secondary to likely multiple etiologies * Likely obesity hypoventilation syndrome * Patient noncompliant with CPAP * Empiric heparin infusion Right bundle branch block Fluids/Renal: Elevated creatinine * Unknown baseline * Restarting Lasix at half dose his daily dose which is 40 twice daily ID: Chronic cellulitis of lower extremities * Empiric Zosyn and vancomycin * Wound culture of right lower extremity was obtained, reviewed results at this time however unclear clinical significance of surface culture * Reviewed infectious disease consultation GI/Nutrition: Morbid obesity * Would benefit from outpatient follow-up with dietitian * Will hold tube feeds at midnight Heme: Left lower extremity venous thromboembolism * Heparin infusion * Reviewed vascular surgery recommendations, this is likely old clot given characteristics seen on ultrasound Endocrine: Elevated hemoglobin A1c Hyperglycemia * ICU insulin protocol * Glycemic consult in place, we are not starting insulin infusion as the patient is undergoing dietary and glucocorticoid adjustments * Will treat with 5 days total of steroid duration * Attempting to optimize aspects of COPD Vascular access: Patient has tenuous IV access, I have consented the patient for a PICC. * Left-sided PICC placed May 10, 2017 CODE STATUS: Full code I have personally spent 45 minutes of critical care time in the direct management of this patient. This is a life/limb threatening event. This includes time spent evaluating patient, direct bedside care, chart review, placing orders, interpretation of diagnostic studies, discussion with consultants, patient, and/or family members regarding treatment decisions, as well as other required patient management activities. This time is exclusive of all separately billable procedures, and teaching time and separate from and in addition to any other critical care service time. Data Medications: Current Inpatient Medications Medications (Trade) Dose Ordered Sig/Kathe Route Start Time Stop Time Status Last Admin Dose Admin Ondansetron HCl (Zofran Inj) 4 mg Q6H PRN IV 05/09/17 22:00 06/08/17 21:59 Nitroglycerin (Nitrostat Tab) 0.4 mg UD PRN SL 05/09/17 22:00 06/08/17 21:59 Glucose (Glucose 40% Gel) 15-30 GRAMS 15 GRAMS... UD PRN PO 05/09/17 22:00 06/08/17 21:59 Glucose (Glucose Chew Tab) 4-8 Tablets 4 Tabl... UD PRN PO 05/09/17 22:00 06/08/17 21:59 Dextrose (Dextrose 50% 50ML Syringe) 25-50ML OF 50% DW IV FOR... UD PRN IV 05/09/17 22:00 06/08/17 21:59 Glucagon (Glucagon Inj) 1 mg UD PRN SQ 05/09/17 22:00 06/08/17 21:59 Miscellaneous Information (Consult) 1 ea UD PRN N/A 05/09/17 22:30 06/08/17 22:29 Miscellaneous Information (Order Awaiting Action) 1 ea QS N/A 05/10/17 00:00 06/09/17 00:00 Piperacillin Sod/ Tazobactam Sod 4.5 gm/Dextrose 120 ml @ 30 mls/hr Q8H IV 05/10/17 04:00 05/16/17 23:59 05/12/17 20:43 30 MLS/HR Fentanyl Citrate (Fentanyl Inj) 100 mcg Q2H PRN IV 05/10/17 08:45 05/24/17 08:44 05/12/17 16:36 100 MCG Midazolam HCl (Versed Inj) 2 mg Q2H PRN IV 05/10/17 08:45 06/09/17 08:44 05/11/17 19:45 2 MG Famotidine 20 mg/ Syringe 5 ml @ 2.5 mls/min Q12 IV 05/10/17 09:30 06/09/17 09:29 05/12/17 20:48 2.5 MLS/MIN Enteral Nutritional Formula (Peptamen Intense VHP) 1,000 ml UD OG 05/10/17 09:00 06/09/17 08:59 05/12/17 10:46 1,000 ML Enteral Nutritional Formula (Prosource No Carb) 30 ml BID PO 05/10/17 09:00 06/09/17 08:59 05/12/17 20:49 30 ML Ascorbic Acid (Vitamin C Tab) 500 mg QAM PO 05/10/17 09:00 06/09/17 08:59 05/12/17 09:10 500 MG Zinc Sulfate (Zinc Sulfate Cap) 220 mg QAM PO 05/10/17 09:00 06/09/17 08:59 05/12/17 09:10 220 MG Multivitamins Therapeutic (Cerovite Liquid) 15 ml QAM PO 05/10/17 09:00 06/09/17 08:59 05/12/17 09:10 15 ML Modafinil (proVIGIL TAB) 200 mg QAM PO 05/11/17 09:00 06/10/17 08:59 05/12/17 11:15 200 MG Miscellaneous Information (Consult Glycemic Management Pharmacy) 1 ea UD PRN N/A 05/11/17 09:15 06/10/17 09:14 Methylprednisolone Sodium Succinate 40 mg/Syringe 0.64 ml @ 1.5 mls/min Q12 IV 05/12/17 09:00 05/12/17 23:59 05/12/17 20:45 1.5 MLS/MIN Insulin Aspart (novoLOG ASPART) SLIDING SCALE If C... Q4 SC 05/11/17 11:00 06/10/17 10:59 05/12/17 20:42 3 UNITS Insulin Glargine (Lantus Solostar Pen) QPM SC 05/11/17 21:00 05/12/17 23:59 05/12/17 20:50 25 UNITS Furosemide (Lasix Tab) 20 mg BID PO 05/11/17 21:00 06/10/17 20:59 05/12/17 20:51 20 MG Prednisolone Acetate (Pred Forte 1% Oph Susp (PER DROP CHARGE)) 1 drop DAILY OPR 05/12/17 09:00 06/11/17 08:59 Future hold Prednisolone Acetate (Pred Forte 1% Oph Susp (PER DROP CHARGE)) 1 drop TID OPL 05/11/17 21:00 06/10/17 20:59 Future hold Mupirocin (Bactroban 2% Oint) 1 appln BID EXT 05/11/17 21:15 05/16/17 21:14 05/12/17 20:46 1 APPLN Dexmedetomidine HCl 400 mcg/ Sodium Chloride 100 ml @ 0 mls/hr Q0M PRN IV 05/12/17 09:45 05/16/17 09:44 05/12/17 16:40 5.1 MLS/HR Heparin Sodium (Porcine) 20144 unit/Sodium Chloride 500 ml @ 76 mls/hr Q6H35M PRN IV 05/12/17 10:00 06/11/17 09:59 05/12/17 17:24 76 MLS/HR Furosemide (Lasix Tab) 20 mg BID PO 05/12/17 21:00 06/11/17 20:59 Methylcellulose (Citrucel Powder) 19 gm DAILY PO 05/12/17 13:30 06/11/17 13:29 05/12/17 14:12 19 GM Prednisone (PredniSONE TAB) 40 mg QAM PO 05/13/17 09:00 05/15/17 09:01 I & O: 24-Hour Column 05/13/17 07:59 Intake Total 1872 ml Output Total 650 ml Balance 1222 ml Vital Signs: Date Time Temp Pulse Resp B/P (MAP) Pulse Ox O2 Delivery O2 Flow Rate FiO2 05/12/17 23:07 40 05/12/17 22:01 61 22 121/59 (79) 93 Mechanical Ventilator 40 05/12/17 21:01 61 22 126/60 (82) 95 Mechanical Ventilator 40 05/12/17 20:06 40 05/12/17 20:01 36.8 64 17 131/59 (83) 94 Mechanical Ventilator 40 05/12/17 20:00 40 05/12/17 20:00 Mechanical Ventilator 40 05/12/17 19:01 59 18 124/58 (80) 93 Mechanical Ventilator 40 05/12/17 18:02 37.2 57 16 134/75 (94) 98 Mechanical Ventilator 40 05/12/17 17:01 40 05/12/17 17:01 57 119/55 (76) 95 05/12/17 17:00 56 92 05/12/17 16:10 61 22 130/68 (88) 94 05/12/17 16:00 37.2 67 20 119/55 (76) 98 Mechanical Ventilator 40 05/12/17 16:00 40 05/12/17 16:00 Mechanical Ventilator 40 05/12/17 16:00 60 7 92 05/12/17 15:01 60 13 118/63 (81) 97 05/12/17 15:00 60 20 97 05/12/17 14:30 40 05/12/17 14:01 62 17 126/64 (84) 05/12/17 14:00 59 19 05/12/17 13:42 137 22 127/59 (81) 76 05/12/17 13:30 37.2 60 20 127/59 (81) 98 Mechanical Ventilator 50 05/12/17 13:00 59 22 98 05/12/17 12:01 57 18 139/60 (86) 97 05/12/17 12:00 56 9 97 05/12/17 11:30 Mechanical Ventilator 50 05/12/17 11:30 37.0 57 20 123/67 (85) 98 Mechanical Ventilator 50 05/12/17 11:30 40 05/12/17 11:27 40 05/12/17 11:01 58 14 126/65 (85) 97 05/12/17 11:00 56 18 96 05/12/17 10:02 59 8 114/66 (82) 99 05/12/17 10:00 37.0 56 22 114/66 (82) 98 Mechanical Ventilator 50 05/12/17 10:00 58 6 99 05/12/17 09:01 56 22 133/66 (88) 98 05/12/17 09:00 56 22 97 05/12/17 08:02 63 17 137/72 (93) 97 05/12/17 08:00 Mechanical Ventilator 50 05/12/17 08:00 61 22 96 05/12/17 07:30 36.8 54 22 114/62 (79) 98 Mechanical Ventilator 50 05/12/17 07:30 Mechanical Ventilator 50 05/12/17 07:30 50 05/12/17 07:28 50 05/12/17 07:02 58 17 114/62 (79) 97 05/12/17 07:00 56 22 96 05/12/17 06:01 56 22 128/59 (82) 95 Mechanical Ventilator 50 05/12/17 05:57 50 05/12/17 05:31 55 22 119/63 (81) 96 05/12/17 05:31 55 22 119/63 (81) 96 05/12/17 05:01 56 22 125/65 (85) 95 05/12/17 04:31 56 22 118/61 (80) 86 05/12/17 04:01 36.6 54 22 124/62 (82) 95 Mechanical Ventilator 50 05/12/17 04:00 Mechanical Ventilator 50 05/12/17 04:00 50 05/12/17 03:31 54 22 119/64 (82) 95 05/12/17 03:01 54 22 122/62 (82) 95 05/12/17 02:01 54 22 118/65 (82) 95 Mechanical Ventilator 50 05/12/17 01:32 55 22 123/58 (79) 95 05/12/17 01:20 50 05/12/17 01:01 57 22 127/63 (84) 95 05/12/17 00:31 56 22 126/64 (84) 95 05/12/17 00:01 36.6 58 22 116/53 (74) 95 05/11/17 23:59 Mechanical Ventilator 50 05/11/17 23:59 50 Laboratory Results: Last 24 Hours Test 05/12/17 00:09 05/12/17 00:31 05/12/17 05:30 05/12/17 05:33 Bedside Glucose 273 mg/dl 246 mg/dl Vancomycin Level Trough 25.1 mcg/ml White Blood Count 9.73 K/uL Red Blood Count 3.91 M/uL Hemoglobin 11.9 g/dL Hematocrit 38.3 % Mean Corpuscular Volume 98.0 fL Mean Corpuscular Hemoglobin 30.4 pg Mean Corpuscular Hemoglobin Concent 31.1 g/dl RDW Standard Deviation 51.7 fL RDW Coefficient of Variation 14.6 % Platelet Count 178 K/uL Mean Platelet Volume 9.6 fL Activated Partial Thromboplast Time 40.4 SECONDS Partial Thromboplastin Ratio 1.6 Sodium Level 138 mmol/L Potassium Level 4.3 mmol/L Chloride Level 99 mmol/L Carbon Dioxide Level 35 mmol/L Anion Gap 4.0 mmol/L Blood Urea Nitrogen 31 mg/dl Creatinine 1.65 mg/dl Est Creatinine Clear Calc Drug Dose 77.2 ml/min Estimated GFR () 48.0 Estimated GFR (Non- 41.4 BUN/Creatinine Ratio 19.0 Random Glucose 261 mg/dl Calcium Level 8.3 mg/dl Phosphorus Level 2.5 mg/dl Magnesium Level 2.2 mg/dl Test 05/12/17 06:09 05/12/17 08:13 05/12/17 11:34 05/12/17 14:54 Blood Gas Sample Site R Radial Bedside Blood Gas pH (LAB) 7.41 Bedside Blood Gas pCO2 (LAB) 58 mmHg Bedside Blood Gas pO2 (LAB) 65 mmHg Bedside Blood Gas HCO3 (LAB) 37 meq/L Bedside Blood Gas Total CO2 39 mEq/l Bedside Blood Gas Base Excess (LAB) 12.0 meq/L Bedside Blood Gas O2 Saturation 93.0 % Colin Test Pass Oxygen Delivery Device Ventilator Bedside Oxygen Rate (breaths/min) 22 Blood Gas Minute Ventilation 12.4 Bedside FiO2 50 % Blood Gas Tidal Volume 550 Blood Gas PEEP 10 Bedside Glucose 243 mg/dl 225 mg/dl Activated Partial Thromboplast Time 40.6 SECONDS Partial Thromboplastin Ratio 1.6 Test 05/12/17 16:10 05/12/17 20:36 05/12/17 21:53 Bedside Glucose 190 mg/dl 181 mg/dl Activated Partial Thromboplast Time 60.9 SECONDS Partial Thromboplastin Ratio 2.3
[2017-05-12] MEDS: APRISO~ORDER AWAITING ACTION SCH ×2 (23:53)
[2017-05-13] VITALS (22 sets, daily range): BP systolic 113–174; BP diastolic 61–96; PULSE 47–72; TEMP 36.9–37.1; O2SAT 92–100
[2017-05-13] MEDS ORDERED: FUROSEMIDE INJ 40 MG in SYRINGE 0 ML IV ONE (00:30)
[2017-05-13] MEDS: HEPARIN IV PRN (00:46)
[2017-05-13] MEDS: SODIUM CHLORIDE 0.9% IV PRN (00:46)
[2017-05-13] MEDS ORDERED: FUROSEMIDE 40 MG/4 ML VIAL ONE (00:48)
[2017-05-13] MEDS: MIDAZOLAM HCL 1 MG/ML 2ML VIAL IV PRN ×3 (02:33→17:29)
[2017-05-13] MEDS: DexMEDEtomidine HCL IV 400 MCG in SODIUM CHLORIDE 0.9% 100ML 96 ML IV PRN (03:15)
[2017-05-13] MEDS: PIPERACILL/TAZOBAC IV 4.5 GM in DEXTROSE 5% 100ML IV SCH ×3 (03:16→20:07)
[2017-05-13] MEDS: INSULIN ASPART 100 UNITS/ML 3 ML PEN SC SCH ×5 (04:19→20:15)
[2017-05-13 05:33] LABS: HEMATOCRIT 39.1 % (42-52); HEMOGLOBIN 12.5 g/dL (14.0-18.0); MEAN CELL VOLUME 94.4 fL (80-100); MEAN CORPUSCULAR HEMOGLOBIN 30.2 pg (25-34); MEAN PLATELET VOLUME 9.4 fL (7.4-10.4); PLATELET COUNT 185 K/uL (130-400); RED CELL DISTRIBUTION WIDTH CV 14.6 % (11.5-14.5); RED CELL DISTRIBUTION WIDTH SD 50.2 fL (36.4-46.3); WHITE BLOOD COUNT 8.88 K/uL (4.8-10.8)
[2017-05-13 05:55] LABS: PTT PATIENT 46.7 SECONDS (21.0-31.0)
[2017-05-13 05:56] LABS: CALCIUM 8.8 mg/dl (8.5-10.1); CREATININE 1.78 mg/dl (0.60-1.40); POTASSIUM 4.1 mmol/L (3.5-5.1)
--- NOTE | 2017-05-13 07:03 | DIAGNOSTIC IMAGING REPORT ---
CHEST ONE VIEW PORTABLE HISTORY: 71 years-old Male Intubation acute respiratory failure COMPARISON: Chest radiograph 05/12/2017 TECHNIQUE: Portable AP view of the chest FINDINGS: Cardiac silhouette is moderately enlarged, unchanged. Endotracheal tube terminates 8.0 cm superior to the perlita overlying the midline. Enteric tube courses below the level the diaphragm outside the [id number]. Left-sided PICC is stable in positioning. Atherosclerosis of the aorta. Persistent pulmonary vascular congestion with mild pulmonary edema. Small left pleural effusion with subsegmental left greater than right bibasilar opacities. Bones of the chest appear grossly intact. IMPRESSION: 1. Stable positioning of life support lines and tubes. 2. Cardiomegaly with persistent mild pulmonary edema. 3. Left greater than right subsegmental bibasilar opacities favor atelectasis. 4. Small left pleural effusion. The above report was generated using voice recognition software. It may contain grammatical, syntax or spelling errors. Electronically signed by: Jarett Hurtado M.D. 05/13/2017 7:02 AM Dictated Date/Time: 05/13/2017 7:00 AM
[2017-05-13] MEDS: APRISO~ORDER AWAITING ACTION SCH ×2 (08:00→16:00)
[2017-05-13] MEDS: METHYLCELLULOSE POWDER 454 GM JAR PO SCH (08:04)
[2017-05-13] MEDS: FUROSEMIDE 20 MG TAB PO SCH ×2 (08:04→08:05)
[2017-05-13] MEDS: MULTIVITAMINS W/MINERALS 15ML UDP PO SCH (08:04)
[2017-05-13] MEDS: ZINC SULFATE 220 MG CAP PO SCH (08:05)
[2017-05-13] MEDS: PROSOURCE NOCARB 30ML/PKT PO SCH (08:05)
[2017-05-13] MEDS: ASCORBIC ACID 500 MG TAB PO SCH (08:05)
[2017-05-13] MEDS: MODAFINIL 100 MG TAB PO SCH (08:08)
[2017-05-13] MEDS: FAMOTIDINE IV INJ 20 MG in SYRINGE 3 ML IV SCH ×2 (08:08→20:21)
[2017-05-13] MEDS: MUPIROCIN 2% OINT 22 GM TUBE EXT SCH ×2 (08:08→20:20)
[2017-05-13] MEDS ORDERED: INSULIN GLARGINE SOLOSTAR 100 UNITS/ML 3 ML PEN SC ONE (09:00)
[2017-05-13] MEDS: NORMOSOL R 1,000 ML IV SCH ×2 (09:20→17:34)
[2017-05-13] MEDS ORDERED: ATROPINE SULFATE 0.1 MG/ML 5ML SYR IV PRN (10:15)
[2017-05-13] MEDS ORDERED: EpHEDrine SULFATE INJ 50 MG/ML AMP IV PRN (10:15)
[2017-05-13] MEDS: FENTANYL CITRATE INJ 50 MCG/1 ML 2 ML VIAL IV PRN ×2 (10:18→17:29)
[2017-05-13] MEDS ORDERED: PROPOFOL IV EMULSION 10 MG/ML 20 ML VIAL IV ONE (12:24)
[2017-05-13] MEDS ORDERED: ROCURONIUM BROMIDE 10 MG/ML 5 ML VIAL IV ONE (12:24)
[2017-05-13] MEDS ORDERED: MIDAZOLAM HCL 1 MG/ML 2ML VIAL ONE ×2 (12:25)
[2017-05-13] MEDS ORDERED: FENTANYL CITRATE INJ 50 MCG/1 ML 2 ML VIAL ONE (12:25)
--- NOTE | 2017-05-13 12:35 | Pharmacy Progress Note ---
Glycemic Control Progress Note Date of Service May 13, 2017. Scope Glycemic Pharmacist consulted for glycemic control to write orders per [facility] inpatient glycemic control protocol. Objective Accuchecks BSG (last 24hrs): Test 05/12/17 16:10 05/12/17 20:36 05/12/17 23:55 05/13/17 04:14 Bedside Glucose 190 mg/dl (70-99) 181 mg/dl (70-99) 172 mg/dl (70-99) 194 mg/dl (70-99) Test 05/13/17 05:10 05/13/17 06:46 Random Glucose 194 mg/dl (70-99) Bedside Glucose 172 mg/dl (70-99) HbA1c: Test 05/09/17 22:50 Hemoglobin A1c 6.9 % (4.5-5.6) H Recent Pertinent Medications Outpatient Anti-diabetic Regimen: * Metformin 1000 mg po BID * A1c = 6.9 % on 05/09/17 Outpatient Anti-Diabetic Meds Oral Agents Assessment & Plan ASSESSMENT: * 71 yo M T2DM on oral agent alone at home now with steroid-induced hyperglycemia * Changes to stressors/glucose administration * Steroids tapering from methylprednisolone 40 mg IV q12h to prednisone 40 mg po daily * NPO for OR today - trach planned * BSG's ranging 172-222 mg/dL over the last 24 hours - better control needed * Anticipate increased insulin sensitivity 2nd steroids tapering, and also now NPO for OR today. Would normally significantly decrease Lantus, but would also prefer all BSG's to be 140-180 mg/dL post-op. Therefore will only slightly decrease Lantus. * Continue aggressive Novolog correction factor, carb ratio - anticipate that current regimen will be more effective at adequately controlling BSG's as steroids are tapering and patient is NPO. * However, will decrease goal range to provide additional insulin for any BSG greater than 140 mg/dL PLAN FOR INPATIENT GLYCEMIC CONTROL: * Hold outpatient oral diabetes medication * Decrease Basal insulin with LANTUS 70 units x1 this AM. Additional Lantus tonight as follows: * Hold for BSG less than 140 mg/dL * 15 units for BSG 140-180 mg/dL * 25 units for BSG greater than 180 mg/dL * Correctional Insulin with NOVOLOG q4h * Decrease Goal Range: Low 110 mg/dL - High 140 mg/dL * Correction Factor: 8 mg/dL/unit * Nutritional / Prandial insulin per carb ratio of 1 unit per 3 grams CHO consumed * Please note that the plan above was derived based on current level of insulin resistance and hospital stress. These recommendations are appropriate for inpatient admission only. Plan of care upon discharge will need to be reassessed to avoid potential outpatient hypo/hyperglycemia. Thank you.
[2017-05-13] MEDS ORDERED: LIDOCAINE HCL 2% LOCAL 50ML VIAL ONE (12:51)
[2017-05-13] MEDS ORDERED: LIDOCAINE/EPINEPHRINE 1% 20 ML VIAL ONE (12:56)
[2017-05-13] MEDS ORDERED: SUCCINYLCHOLINE CHLORIDE 20 MG/ML 10 ML VIAL IV ONE (13:32)
--- NOTE | 2017-05-13 14:06 | History & Physical Bridge Note ---
H&P Re-Evaluation Bridge Note: I have examined the patient, reviewed the History & Physical and in the interval since the performance of the History & Physical I have noted the following changes of clinical significance: No changes noted
[2017-05-13] MEDS ORDERED: SURGICEL ABSORB HEMOSTAT 2IN X 14IN TOP ONE (15:10)
--- NOTE | 2017-05-13 15:46 | Anesthesiology Progress Note ---
Anesthesia Post Op Note Date & Time May 13, 2017 at 15:46 Vital Signs Pain Intensity: 0.0 Vital Signs Past 12 Hours Date Time Temp Pulse Resp B/P (MAP) Pulse Ox O2 Delivery O2 Flow Rate FiO2 05/13/17 15:38 47 22 05/13/17 15:38 47 22 92 05/13/17 15:36 109/62 (72) 05/13/17 15:33 48 22 05/13/17 15:33 48 22 92 05/13/17 15:31 110/60 (68) 05/13/17 15:28 51 22 05/13/17 15:28 53 22 91 05/13/17 15:27 104/60 (68) 05/13/17 15:25 104/57 (69) 05/13/17 15:22 36.6 52 22 104/57 91 Mechanical Ventilator 75 05/13/17 12:00 Mechanical Ventilator 50 05/13/17 12:00 50 05/13/17 12:00 37.1 56 22 134/68 (90) 97 Mechanical Ventilator 50 05/13/17 11:10 50 05/13/17 10:00 54 22 148/72 (97) 95 Mechanical Ventilator 50 05/13/17 08:00 Mechanical Ventilator 50 05/13/17 08:00 37.0 57 22 130/67 (88) 99 Mechanical Ventilator 50 05/13/17 08:00 50 05/13/17 08:00 50 05/13/17 08:00 Mechanical Ventilator 50 05/13/17 06:25 50 05/13/17 06:01 54 23 130/65 (86) Mechanical Ventilator 40 05/13/17 05:02 52 22 143/69 (93) 94 Mechanical Ventilator 40 05/13/17 04:01 49 22 146/70 (95) 92 Mechanical Ventilator 40 05/13/17 04:01 37.0 49 22 146/70 (95) 92 Mechanical Ventilator 40 05/13/17 04:00 40 05/13/17 04:00 Mechanical Ventilator 40 Notes Mental Status: alert / awake / arousable, participated in evaluation Pt Amnestic to Procedure: Yes Nausea / Vomiting: adequately controlled Pain: adequately controlled Airway Patency, RR, SpO2: stable & adequate BP & HR: stable & adequate Hydration State: stable & adequate Anesthetic Complications: no major complications apparent
--- NOTE | 2017-05-13 16:22 | DIAGNOSTIC IMAGING REPORT ---
KUB CLINICAL HISTORY: Feeding tube placement check COMPARISON STUDY: No previous studies for comparison. FINDINGS: 2 portable supine views of the abdomen centered on the lower chest/upper abdomen is provided for interpretation. There is a feeding tube positioned within the stomach. The heart is enlarged. There is a left-sided PICC catheter which projects over the aortic knob. IMPRESSION: The feeding tube is positioned within the stomach Electronically signed by: Alex Moe M.D. 05/13/2017 4:20 PM Dictated Date/Time: 05/13/2017 4:19 PM
--- NOTE | 2017-05-13 16:24 | DIAGNOSTIC IMAGING REPORT ---
CHEST ONE VIEW PORTABLE CLINICAL HISTORY: 71 years-old Male presenting with post-op tracheostomy. TECHNIQUE: Portable semiupright AP view of the chest was obtained. COMPARISON: 05/13/2017. FINDINGS: The endotracheal tube has been replaced with a tracheostomy tube, which terminates in the upper thoracic trachea. A weighted feeding catheter containing a guidewire terminates in the gastric lumen, which has replaced the nasogastric tube. A left upper extremity PICC again terminates in the left brachiocephalic vein. Prominence of the cardiac silhouette, unchanged. Hazy bibasilar opacities. No large pneumothorax. IMPRESSION: 1. Postsurgical changes of tracheostomy tube. 2. Weighted feeding catheter terminates in the gastric lumen; advancement recommended. 3. Mild cardiomegaly. 4. Hazy bibasilar opacities could represent atelectasis or mild pulmonary edema. The report will be called/faxed according to standard departmental protocol. Electronically signed by: Pk Duran M.D. 05/13/2017 4:22 PM Dictated Date/Time: 05/13/2017 4:21 PM
--- NOTE | 2017-05-13 16:47 | [facility] Post Operative Brief Note ---
Immediate Operative Summary Operative Date May 13, 2017. Pre-Operative Diagnosis Respiratory failure Post-Operative Diagnosis Respiratory failure Procedure(s) Performed Tracheostomy Surgeon Dr Jaffe Gear Cutting Machine Set Up Operator Surgeon(s) None Estimated Blood Loss 15ml Findings Consistent with Post-Op Diagnosis Specimens none Drains None Anesthesia Type General Complication(s) none Disposition Accompanied Pt To Recovery: no Disposition: Surgical ICU
--- NOTE | 2017-05-13 18:59 | Critical Care Progress Note ---
Critical Care Progress Note Date of Service May 13, 2017. ICU Day ICU Day Number: [address] Jalloh Subjective Postop day 0 from open tracheostomy. Patient has recovered from anesthesia, complaints of mild throat pain, following complex commands Objective Head: normocephalic Eyes: PERRLA ENT: Mild oozing around tracheostomy site Respiratory: other (Difficult exam, distant breath sounds) Cardiovasular: regular rate/rhythm, other (Difficult exam distant heart sounds) Abdomen: other (No tenderness with palpation) Genitourinary - Male: other (Syed present) Lower Extremities: Largely unchanged compared to yesterday dressings in place Neuro: Alert, following complex commands Assessment & Plan PLAN: Neuro: Holding Precedex infusion Resp: Acute on chronic hypercarbic respiratory failure Obesity hypoventilation syndrome * Resolved status post open tracheostomy * Rapid weaning of ventilator requirements, plan for trach collar trials tomorrow morning CV: Mildly dilated right ventricle * Concern for cor pulmonale secondary to likely multiple etiologies * Likely obesity hypoventilation syndrome Right bundle branch block Fluids/Renal: Elevated creatinine * Unknown baseline Mild volume expansion ID: Chronic cellulitis of lower extremities * Empiric Zosyn GI/Nutrition: Morbid obesity * Would benefit from outpatient follow-up with dietitian * Will restart tube feeds * swallow evaluation Heme: Left lower extremity venous thromboembolism * Reviewed vascular surgery recommendations, this is likely old clot given characteristics seen on ultrasound Endocrine: Elevated hemoglobin A1c Hyperglycemia * ICU insulin protocol * Improved blood sugars compared to yesterday * Will treat with 5 days total of steroid duration Vascular access: Patient has tenuous IV access, I have consented the patient for a PICC. * Left-sided PICC placed May 10, 2017 CODE STATUS: Full code I have personally spent 35 minutes of critical care time in the direct management of this patient. This is a life/limb threatening event. This includes time spent evaluating patient, direct bedside care, chart review, placing orders, interpretation of diagnostic studies, discussion with consultants, patient, and/or family members regarding treatment decisions, as well as other required patient management activities. This time is exclusive of all separately billable procedures, and teaching time and separate from and in addition to any other critical care service time. Data Medications: Current Inpatient Medications Medications (Trade) Dose Ordered Sig/Kathe Route Start Time Stop Time Status Last Admin Dose Admin Ondansetron HCl (Zofran Inj) 4 mg Q6H PRN IV 2/25/18 22:00 06/08/17 21:59 Nitroglycerin (Nitrostat Tab) 0.4 mg UD PRN SL 05/09/17 22:00 06/08/17 21:59 Glucose (Glucose 40% Gel) 15-30 GRAMS 15 GRAMS... UD PRN PO 05/09/17 22:00 06/08/17 21:59 Glucose (Glucose Chew Tab) 4-8 Tablets 4 Tabl... UD PRN PO 05/09/17 22:00 06/08/17 21:59 Dextrose (Dextrose 50% 50ML Syringe) 25-50ML OF 50% DW IV FOR... UD PRN IV 05/09/17 22:00 06/08/17 21:59 Glucagon (Glucagon Inj) 1 mg UD PRN SQ 05/09/17 22:00 06/08/17 21:59 Miscellaneous Information (Consult) 1 ea UD PRN N/A 05/09/17 22:30 06/08/17 22:29 Miscellaneous Information (Order Awaiting Action) 1 ea QS N/A 05/10/17 00:00 06/09/17 00:00 Piperacillin Sod/ Tazobactam Sod 4.5 gm/Dextrose 120 ml @ 30 mls/hr Q8H IV 05/10/17 04:00 05/16/17 23:59 05/13/17 11:28 30 MLS/HR Fentanyl Citrate (Fentanyl Inj) 100 mcg Q2H PRN IV 05/10/17 08:45 05/24/17 08:44 05/13/17 17:29 100 MCG Midazolam HCl (Versed Inj) 2 mg Q2H PRN IV 05/10/17 08:45 06/09/17 08:44 05/13/17 17:29 2 MG Famotidine 20 mg/ Syringe 5 ml @ 2.5 mls/min Q12 IV 05/10/17 09:30 06/09/17 09:29 05/13/17 08:08 2.5 MLS/MIN Enteral Nutritional Formula (Peptamen Intense VHP) 1,000 ml UD OG 05/10/17 09:00 06/09/17 08:59 05/12/17 10:46 1,000 ML Enteral Nutritional Formula (Prosource No Carb) 30 ml BID PO 05/10/17 09:00 06/09/17 08:59 05/13/17 08:05 30 ML Ascorbic Acid (Vitamin C Tab) 500 mg QAM PO 05/10/17 09:00 06/09/17 08:59 05/13/17 08:05 500 MG Zinc Sulfate (Zinc Sulfate Cap) 220 mg QAM PO 05/10/17 09:00 06/09/17 08:59 05/13/17 08:05 220 MG Multivitamins Therapeutic (Cerovite Liquid) 15 ml QAM PO 05/10/17 09:00 06/09/17 08:59 05/13/17 08:04 15 ML Modafinil (proVIGIL TAB) 200 mg QAM PO 05/11/17 09:00 06/10/17 08:59 05/13/17 08:08 200 MG Miscellaneous Information (Consult Glycemic Management Pharmacy) 1 ea UD PRN N/A 05/11/17 09:15 06/10/17 09:14 Insulin Aspart (novoLOG ASPART) SLIDING SCALE If C... Q4 SC 05/11/17 11:00 06/10/17 10:59 05/13/17 16:17 4 UNITS Insulin Glargine (Lantus Solostar Pen) QPM SC 05/11/17 21:00 06/10/17 23:59 05/12/17 20:50 25 UNITS Prednisolone Acetate (Pred Forte 1% Oph Susp (PER DROP CHARGE)) 1 drop DAILY OPR 05/12/17 09:00 06/11/17 08:59 Future hold Prednisolone Acetate (Pred Forte 1% Oph Susp (PER DROP CHARGE)) 1 drop TID OPL 05/11/17 21:00 06/10/17 20:59 Future hold Mupirocin (Bactroban 2% Oint) 1 appln BID EXT 05/11/17 21:15 05/16/17 21:14 05/13/17 08:08 1 APPLN Dexmedetomidine HCl 400 mcg/ Sodium Chloride 100 ml @ 0 mls/hr Q0M PRN IV 05/12/17 09:45 05/16/17 09:44 05/13/17 03:15 5.2 MLS/HR Methylcellulose (Citrucel Powder) 19 gm DAILY PO 05/12/17 13:30 06/11/17 13:29 05/13/17 08:04 19 GM Prednisone (PredniSONE TAB) 40 mg QAM PO 05/13/17 09:00 05/15/17 09:01 05/13/17 08:04 40 MG Parenteral Electrolyte Solution 1,000 ml @ 100 mls/hr Q10H IV 05/13/17 09:00 06/12/17 08:59 05/13/17 17:34 100 MLS/HR Insulin Glargine (Lantus Solostar Pen) QAM SC 05/14/17 09:00 06/13/17 08:59 I & O: 24-Hour Column 05/14/17 07:59 Intake Total 665 ml Output Total 1050 ml Balance -385 ml Vital Signs: Date Time Temp Pulse Resp B/P (MAP) Pulse Ox O2 Delivery O2 Flow Rate FiO2 05/13/17 18:00 50 22 155/70 (98) 100 Mechanical Ventilator 50 05/13/17 17:39 50 05/13/17 16:05 75 05/13/17 16:00 50 05/13/17 16:00 36.9 47 22 139/73 (95) 100 Mechanical Ventilator 50 05/13/17 16:00 Mechanical Ventilator 50 05/13/17 15:38 47 22 05/13/17 15:38 47 22 92 05/13/17 15:36 109/62 (72) 05/13/17 15:33 48 22 05/13/17 15:33 48 22 92 05/13/17 15:31 110/60 (68) 05/13/17 15:28 51 22 05/13/17 15:28 53 22 91 05/13/17 15:27 104/60 (68) 05/13/17 15:25 104/57 (69) 05/13/17 15:22 36.6 52 22 104/57 91 Mechanical Ventilator 75 05/13/17 12:00 Mechanical Ventilator 50 05/13/17 12:00 50 05/13/17 12:00 37.1 56 22 134/68 (90) 97 Mechanical Ventilator 50 05/13/17 11:10 50 05/13/17 10:00 54 22 148/72 (97) 95 Mechanical Ventilator 50 05/13/17 08:00 Mechanical Ventilator 50 05/13/17 08:00 37.0 57 22 130/67 (88) 99 Mechanical Ventilator 50 05/13/17 08:00 50 05/13/17 08:00 50 05/13/17 08:00 Mechanical Ventilator 50 05/13/17 06:25 50 05/13/17 06:01 54 23 130/65 (86) Mechanical Ventilator 40 05/13/17 05:02 52 22 143/69 (93) 94 Mechanical Ventilator 40 05/13/17 04:01 49 22 146/70 (95) 92 Mechanical Ventilator 40 05/13/17 04:01 37.0 49 22 146/70 (95) 92 Mechanical Ventilator 40 05/13/17 04:00 40 05/13/17 04:00 Mechanical Ventilator 40 05/13/17 03:02 61 18 154/68 (96) 94 Mechanical Ventilator 40 05/13/17 02:04 40 05/13/17 02:02 72 22 139/61 (87) 95 Mechanical Ventilator 40 05/13/17 01:02 63 22 134/62 (86) 94 Mechanical Ventilator 40 05/13/17 00:01 Mechanical Ventilator 40 05/13/17 00:01 37.0 61 21 134/68 (90) 95 Mechanical Ventilator 40 05/13/17 00:01 40 05/12/17 23:07 40 05/12/17 23:01 64 22 139/64 (89) 94 Mechanical Ventilator 40 05/12/17 22:01 61 22 121/59 (79) 93 Mechanical Ventilator 40 05/12/17 21:01 61 22 126/60 (82) 95 Mechanical Ventilator 40 05/12/17 20:06 40 05/12/17 20:01 36.8 64 17 131/59 (83) 94 Mechanical Ventilator 40 05/12/17 20:00 40 05/12/17 20:00 Mechanical Ventilator 40 05/12/17 19:01 59 18 124/58 (80) 93 Mechanical Ventilator 40 Laboratory Results: Last 24 Hours Test 05/12/17 20:36 05/12/17 21:53 05/12/17 23:55 05/13/17 04:14 Bedside Glucose 181 mg/dl 172 mg/dl 194 mg/dl Activated Partial Thromboplast Time 60.9 SECONDS Partial Thromboplastin Ratio 2.3 Test 05/13/17 05:10 05/13/17 06:46 White Blood Count 8.88 K/uL Red Blood Count 4.14 M/uL Hemoglobin 12.5 g/dL Hematocrit 39.1 % Mean Corpuscular Volume 94.4 fL Mean Corpuscular Hemoglobin 30.2 pg Mean Corpuscular Hemoglobin Concent 32.0 g/dl RDW Standard Deviation 50.2 fL RDW Coefficient of Variation 14.6 % Platelet Count 185 K/uL Mean Platelet Volume 9.4 fL Activated Partial Thromboplast Time 46.7 SECONDS Partial Thromboplastin Ratio 1.8 Venous Blood pH 7.48 Venous Blood Partial Pressure CO2 47 mmHg Venous Blood Partial Pressure O2 50 mmHg Venous Blood HCO3 34 mmol/L Venous Blood Oxygen Saturation 85.5 % Venous Blood Base Excess 9.1 mEq/L Sodium Level 138 mmol/L Potassium Level 4.1 mmol/L Chloride Level 101 mmol/L Carbon Dioxide Level 32 mmol/L Anion Gap 5.0 mmol/L Blood Urea Nitrogen 39 mg/dl Creatinine 1.78 mg/dl Est Creatinine Clear Calc Drug Dose 71.6 ml/min Estimated GFR () 43.8 Estimated GFR (Non- 37.8 BUN/Creatinine Ratio 22.0 Random Glucose 194 mg/dl Calcium Level 8.8 mg/dl Phosphorus Level 2.0 mg/dl Magnesium Level 2.1 mg/dl Bedside Glucose 172 mg/dl
[2017-05-13] MEDS ORDERED: PEPTAMEN INTENSE VHP 1000ML BAG NG PRN (19:00)
--- NOTE | 2017-05-13 20:03 | OPERATIVE REPORT ---
DATE OF OPERATION: 05/13/2017 PREOPERATIVE DIAGNOSIS: Respiratory failure. POSTOPERATIVE DIAGNOSIS: Same. PROCEDURE: Tracheostomy with local rotation flap creating a tracheal fenestration. SURGEON: Dr. Jaffe. ANESTHESIA: General endotracheal. COMPLICATIONS: None. BLOOD LOSS: 15 mL. HISTORY OF PRESENT ILLNESS: This is a 71-year-old gentleman with severe respiratory failure with his BMI being over 60, his weight being over 215 kg. DESCRIPTION OF PROCEDURE: The patient brought to the operating room and placed in supine position. He was already intubated from the ICU. General anesthesia was induced. The neck was prepped and draped in the usual sterile manner. The incision site was injected with 1% Xylocaine with 1:100,000 strength epinephrine. The incision was an inverted U-type flap with a skin flap to be rotated downward into the trachea based inferiorly. The skin flap and incision was made using 15 blade, carried down through the skin and subcutaneous layer. The lower skin flap was elevated using the 15 blade and then the cautery was used to resect the subcutaneous fat down to the strap muscles. The midline dissection was performed down to the trachea. The second tracheal ring was identified after transecting the isthmus of the thyroid with a Bovie. The incision was made below the second tracheal ring and then down each side of the second tracheal ring reflecting a flap inferiorly which was sewn to the inferiorly-based skin flap creating a fistula. At this point, the tracheostomy tube was placed and the skin edges were approximated using 2-0 chromic sutures. The trach was sewn back in place with stay sutures at all 4 corners. The patient tolerated the procedure well, was taken back to recovery area in satisfactory condition. I attest to the content of the Intraoperative Record and any orders documented therein. Any exception s are noted below.
[2017-05-13] MEDS: INSULIN GLARGINE SOLOSTAR 100 UNITS/ML 3 ML PEN SC SCH (20:18)
[2017-05-13] MEDS: PROSOURCE NOCARB 30ML/PKT NG SCH (20:20)
[2017-05-13] MEDS: ONDANSETRON INJ 2 MG/ML 2 ML VIAL IV PRN (21:07)
--- NOTE | 2017-05-13 23:41 | Progress Note ---
Subjective Date of Service: May 13, 2017. Objective Vital Signs Date Time Temp Pulse Resp B/P (MAP) Pulse Ox O2 Delivery O2 Flow Rate FiO2 05/13/17 21:03 64 18 113/87 (96) 98 CPAP 50 Mechanical Ventilator 05/13/17 20:32 58 153/96 (115) 99 CPAP 50 Mechanical Ventilator 05/13/17 20:10 50 05/13/17 20:02 37.0 59 17 154/70 (98) 98 CPAP 50 Mechanical Ventilator 05/13/17 20:00 50 05/13/17 20:00 CPAP 50 Mechanical Ventilator 05/13/17 19:32 57 169/76 (107) 98 CPAP 50 Mechanical Ventilator 05/13/17 19:01 58 19 159/68 (98) 99 CPAP 50 Mechanical Ventilator 05/13/17 18:00 50 22 155/70 (98) 100 Mechanical Ventilator 50 05/13/17 17:39 50 05/13/17 16:05 75 05/13/17 16:00 50 05/13/17 16:00 36.9 47 22 139/73 (95) 100 Mechanical Ventilator 50 05/13/17 16:00 Mechanical Ventilator 50 05/13/17 15:38 47 22 05/13/17 15:38 47 22 92 05/13/17 15:36 109/62 (72) 05/13/17 15:33 48 22 05/13/17 15:33 48 22 92 05/13/17 15:31 110/60 (68) 05/13/17 15:28 51 22 05/13/17 15:28 53 22 91 05/13/17 15:27 104/60 (68) 05/13/17 15:25 104/57 (69) 05/13/17 15:22 36.6 52 22 104/57 91 Mechanical Ventilator 75 05/13/17 12:00 Mechanical Ventilator 50 05/13/17 12:00 50 05/13/17 12:00 37.1 56 22 134/68 (90) 97 Mechanical Ventilator 50 05/13/17 11:10 50 05/13/17 10:00 54 22 148/72 (97) 95 Mechanical Ventilator 50 05/13/17 08:00 Mechanical Ventilator 50 05/13/17 08:00 37.0 57 22 130/67 (88) 99 Mechanical Ventilator 50 05/13/17 08:00 50 05/13/17 08:00 50 05/13/17 08:00 Mechanical Ventilator 50 05/13/17 06:25 50 05/13/17 06:01 54 23 130/65 (86) Mechanical Ventilator 40 05/13/17 05:02 52 22 143/69 (93) 94 Mechanical Ventilator 40 05/13/17 04:01 49 22 146/70 (95) 92 Mechanical Ventilator 40 05/13/17 04:01 37.0 49 22 146/70 (95) 92 Mechanical Ventilator 40 05/13/17 04:00 40 05/13/17 04:00 Mechanical Ventilator 40 05/13/17 03:02 61 18 154/68 (96) 94 Mechanical Ventilator 40 05/13/17 02:04 40 05/13/17 02:02 72 22 139/61 (87) 95 Mechanical Ventilator 40 05/13/17 01:02 63 22 134/62 (86) 94 Mechanical Ventilator 40 05/13/17 00:01 Mechanical Ventilator 40 05/13/17 00:01 37.0 61 21 134/68 (90) 95 Mechanical Ventilator 40 05/13/17 00:01 40 Laboratory Results Last 24 Hours Test 05/12/17 23:55 05/13/17 04:14 05/13/17 05:10 05/13/17 06:46 Bedside Glucose 172 mg/dl 194 mg/dl 172 mg/dl White Blood Count 8.88 K/uL Red Blood Count 4.14 M/uL Hemoglobin 12.5 g/dL Hematocrit 39.1 % Mean Corpuscular Volume 94.4 fL Mean Corpuscular Hemoglobin 30.2 pg Mean Corpuscular Hemoglobin Concent 32.0 g/dl RDW Standard Deviation 50.2 fL RDW Coefficient of Variation 14.6 % Platelet Count 185 K/uL Mean Platelet Volume 9.4 fL Activated Partial Thromboplast Time 46.7 SECONDS Partial Thromboplastin Ratio 1.8 Venous Blood pH 7.48 Venous Blood Partial Pressure CO2 47 mmHg Venous Blood Partial Pressure O2 50 mmHg Venous Blood HCO3 34 mmol/L Venous Blood Oxygen Saturation 85.5 % Venous Blood Base Excess 9.1 mEq/L Sodium Level 138 mmol/L Potassium Level 4.1 mmol/L Chloride Level 101 mmol/L Carbon Dioxide Level 32 mmol/L Anion Gap 5.0 mmol/L Blood Urea Nitrogen 39 mg/dl Creatinine 1.78 mg/dl Est Creatinine Clear Calc Drug Dose 71.6 ml/min Estimated GFR () 43.8 Estimated GFR (Non- 37.8 BUN/Creatinine Ratio 22.0 Random Glucose 194 mg/dl Calcium Level 8.8 mg/dl Phosphorus Level 2.0 mg/dl Magnesium Level 2.1 mg/dl Test 05/13/17 11:02 05/13/17 16:04 05/13/17 20:10 Bedside Glucose 179 mg/dl 170 mg/dl 151 mg/dl Assessment and Plan Failed extubation. Will have palliative care meeting today with and son. Spent about 55 minutes with patient.
[2017-05-14] VITALS (38 sets, daily range): BP systolic 130–175; BP diastolic 68–93; PULSE 59–78; TEMP 36.6–37.2; O2SAT 75–99
[2017-05-14] MEDS: INSULIN ASPART 100 UNITS/ML 3 ML PEN SC SCH ×5 (04:00→16:00)
[2017-05-14] MEDS: ONDANSETRON INJ 2 MG/ML 2 ML VIAL IV PRN ×2 (04:24→12:42)
[2017-05-14] MEDS: PIPERACILL/TAZOBAC IV 4.5 GM in DEXTROSE 5% 100ML IV SCH ×2 (04:25→12:40)
[2017-05-14] MEDS: NORMOSOL R 1,000 ML IV SCH (04:29)
[2017-05-14 05:58] LABS: PTT PATIENT 25.7 SECONDS (21.0-31.0)
[2017-05-14 06:21] LABS: CALCIUM 8.7 mg/dl (8.5-10.1); CREATININE 1.72 mg/dl (0.60-1.40); POTASSIUM 3.6 mmol/L (3.5-5.1)
[2017-05-14 06:22] LABS: PHOSPHORUS 3.5 mg/dl (2.5-4.9)
--- NOTE | 2017-05-14 08:15 | Anesthesiology Progress Note ---
Anesthesia Post Op Note Date & Time May 14, 2017 at 08:13 Vital Signs Pain Intensity: 0.0 Vital Signs Past 12 Hours Date Time Temp Pulse Resp B/P (MAP) Pulse Ox O2 Delivery O2 Flow Rate FiO2 05/14/17 06:02 59 20 168/78 (108) 94 05/14/17 05:42 40 05/14/17 05:31 63 21 135/93 (107) 98 05/14/17 05:01 61 17 141/76 (97) 97 05/14/17 04:29 37.0 67 158/78 (104) 97 CPAP 40 Mechanical Ventilator 05/14/17 04:00 40 05/14/17 04:00 CPAP 40 Mechanical Ventilator 05/14/17 03:46 64 15 157/81 (106) 98 CPAP 40 Mechanical Ventilator 05/14/17 03:01 62 157/72 (100) 98 CPAP 40 Mechanical Ventilator 05/14/17 02:31 63 18 153/73 (99) 99 CPAP 40 Mechanical Ventilator 05/14/17 02:20 61 142/70 (94) 96 CPAP 40 Mechanical Ventilator 05/14/17 01:47 40 05/14/17 01:31 63 142/68 (92) 97 CPAP 40 Mechanical Ventilator 05/14/17 01:01 60 21 153/69 (97) 99 CPAP 40 Mechanical Ventilator 05/14/17 00:31 67 145/72 (96) 99 CPAP 40 Mechanical Ventilator 05/14/17 00:01 CPAP 50 Mechanical Ventilator 05/14/17 00:01 50 05/14/17 00:01 36.6 60 23 147/73 (97) 97 CPAP 40 Mechanical Ventilator 05/13/17 23:42 40 05/13/17 23:32 61 137/61 (86) 98 CPAP 50 Mechanical Ventilator 05/13/17 23:02 64 15 147/64 (91) 98 CPAP 50 Mechanical Ventilator 05/13/17 22:31 67 174/71 (105) 97 CPAP 50 Mechanical Ventilator 05/13/17 22:02 63 16 127/68 (87) 99 CPAP 50 Mechanical Ventilator 05/13/17 21:31 66 133/70 (91) 99 CPAP 50 Mechanical Ventilator 05/13/17 21:03 64 18 113/87 (96) 98 CPAP 50 Mechanical Ventilator 05/13/17 20:32 58 153/96 (115) 99 CPAP 50 Mechanical Ventilator Notes Pt Amnestic to Procedure: Yes Patient awake, alert, stable.....progressed to CPAP from ventilator.
[2017-05-14] MEDS ORDERED: HEPARIN 5000 UNIT/0.5 ML SC SCH (09:00)
[2017-05-14] MEDS ORDERED: INSULIN GLARGINE SOLOSTAR 100 UNITS/ML 3 ML PEN SC SCH (09:00)
[2017-05-14] MEDS ORDERED: HEPARIN SQ 5000 UNIT/0.5ML 7,500 UNIT in SYRINGE 0 ML SC SCH (09:00)
[2017-05-14] MEDS: PROSOURCE NOCARB 30ML/PKT NG SCH (10:35)
[2017-05-14] MEDS: MULTIVITAMINS W/MINERALS 15ML UDP PO SCH (10:35)
[2017-05-14] MEDS: ZINC SULFATE 220 MG CAP PO SCH (10:36)
[2017-05-14] MEDS: ASCORBIC ACID 500 MG TAB PO SCH (10:36)
[2017-05-14] MEDS: METHYLCELLULOSE POWDER 454 GM JAR PO SCH (10:37)
[2017-05-14] MEDS: APRISO~ORDER AWAITING ACTION SCH ×3 (10:37→16:00)
[2017-05-14] MEDS: MODAFINIL 100 MG TAB PO SCH (10:41)
[2017-05-14] MEDS: FENTANYL CITRATE INJ 50 MCG/1 ML 2 ML VIAL IV PRN (10:41)
[2017-05-14] MEDS: FAMOTIDINE IV INJ 20 MG in SYRINGE 3 ML IV SCH (10:41)
[2017-05-14] MEDS: MUPIROCIN 2% OINT 22 GM TUBE EXT SCH (10:42)
--- NOTE | 2017-05-14 11:17 | DIAGNOSTIC IMAGING REPORT ---
L VENOUS DOPP LOWER EXT UNILAT CLINICAL HISTORY: known dvt, check for clot progression deep venous thrombosis TECHNIQUE: Venous Doppler COMPARISON STUDY: 05/10/2017 FINDINGS: Patient continues to have thrombus within the left superficial femoral and popliteal veins. There is now nonocclusive thrombus in the common femoral vein as well as the popliteal and posterior tibial and peroneal veins. IMPRESSION: Progressive findings of deep venous thrombosis of the left leg now including significant components of the venous structures of the left thigh and lower leg. The above report was generated using voice recognition software. It may contain grammatical, syntax or spelling errors. Electronically signed by: J Carlos Diane M.D. 05/14/2017 11:15 AM Dictated Date/Time: 05/14/2017 11:12 AM
[2017-05-14] MEDS: TUBE FEEDING WATER FLUSH NG SCH ×2 (12:40→16:00)
[2017-05-14] MEDS ORDERED: SODIUM CHLORIDE 0.9% IV PRN (14:00)
[2017-05-14] MEDS ORDERED: HEPARIN IV PRN (14:00)
--- NOTE | 2017-05-14 14:12 | Critical Care Progress Note ---
Critical Care Progress Note Date of Service May 14, 2017. ICU Day ICU Day Number: [address] Jalloh Subjective Mild soreness of throat, feels okay. Nausea when restarting tube feeds Son reports father seems more alert than he has in the past couple of weeks, would normally be nodding off during conversations. Objective Head: normocephalic Eyes: PERRLA ENT: No obvious bleeding at tracheostomy site Respiratory: other (Difficult exam, distant breath sounds) Cardiovasular: regular rate/rhythm, other (Difficult exam distant heart sounds) Abdomen: other (No tenderness with palpation) Genitourinary - Male: other (Syed present) Lower Extremities: Largely unchanged compared to yesterday dressings in place Neuro: Alert, following complex commands Assessment & Plan PLAN: Neuro: Pain control: Tylenol Resp: Acute on chronic hypercarbic respiratory failure Obesity hypoventilation syndrome * Resolved status post open tracheostomy * Tolerating trach collar * Patient may have cuff deflated CV: Mildly dilated right ventricle * Concern for cor pulmonale secondary to likely multiple etiologies * Likely obesity hypoventilation syndrome Right bundle branch block Fluids/Renal: Elevated creatinine * Unknown baseline Improving renal function ID: Chronic cellulitis of lower extremities * Empiric Zosyn minimum 14 days day 6 of 14 * Has left-sided PICC * After day 14 will require reevaluation by medical staff or follow-up with wound care/infectious disease GI/Nutrition: Morbid obesity * Tube feeds restarted * Discussed with speech therapy, since passed bedside swallow study, not able to speak yet at this time with finger occlusion of tracheostomy * Patient concerned about nausea with oral feeding, will continue with tube feeds at this time * Patient may have cuff deflated while eating Heme: Left lower extremity venous thromboembolism * Repeat limited ultrasound demonstrates extension of clot * Restarted heparin at previous infusion levels * Recommend 6 months anticoagulation at minimum Endocrine: Elevated hemoglobin A1c Hyperglycemia * ICU insulin protocol * Will finishing last day prednisone 40 mg tomorrow for 5 day total burst Vascular access: * Left-sided PICC placed May 10, 2017 CODE STATUS: Full code I facilitated doc to doc conversation with Dr. Guerrero Lugo [phone] High complexity total time coordinating the care of this patient and facilitating his follow-up was 45 minutes Data Medications: Current Inpatient Medications Medications (Trade) Dose Ordered Sig/Kathe Route Start Time Stop Time Status Last Admin Dose Admin Ondansetron HCl (Zofran Inj) 4 mg Q6H PRN IV 05/09/17 22:00 06/08/17 21:59 05/14/17 12:42 4 MG Nitroglycerin (Nitrostat Tab) 0.4 mg UD PRN SL 05/09/17 22:00 06/08/17 21:59 Glucose (Glucose 40% Gel) 15-30 GRAMS 15 GRAMS... UD PRN PO 05/09/17 22:00 06/08/17 21:59 Glucose (Glucose Chew Tab) 4-8 Tablets 4 Tabl... UD PRN PO 05/09/17 22:00 06/08/17 21:59 Dextrose (Dextrose 50% 50ML Syringe) 25-50ML OF 50% DW IV FOR... UD PRN IV 05/09/17 22:00 06/08/17 21:59 Glucagon (Glucagon Inj) 1 mg UD PRN SQ 05/09/17 22:00 06/08/17 21:59 Miscellaneous Information (Consult) 1 ea UD PRN N/A 05/09/17 22:30 06/08/17 22:29 Miscellaneous Information (Order Awaiting Action) 1 ea QS N/A 05/10/17 00:00 06/09/17 00:00 Piperacillin Sod/ Tazobactam Sod 4.5 gm/Dextrose 120 ml @ 30 mls/hr Q8H IV 05/10/17 04:00 05/16/17 23:59 05/14/17 12:40 30 MLS/HR Fentanyl Citrate (Fentanyl Inj) 100 mcg Q2H PRN IV 05/10/17 08:45 05/24/17 08:44 05/14/17 10:41 100 MCG Famotidine 20 mg/ Syringe 5 ml @ 2.5 mls/min Q12 IV 05/10/17 09:30 06/09/17 09:29 05/14/17 10:41 2.5 MLS/MIN Ascorbic Acid (Vitamin C Tab) 500 mg QAM PO 05/10/17 09:00 06/09/17 08:59 05/14/17 10:36 500 MG Zinc Sulfate (Zinc Sulfate Cap) 220 mg QAM PO 05/10/17 09:00 06/09/17 08:59 05/14/17 10:36 220 MG Multivitamins Therapeutic (Cerovite Liquid) 15 ml QAM PO 05/10/17 09:00 06/09/17 08:59 05/14/17 10:35 15 ML Modafinil (proVIGIL TAB) 200 mg QAM PO 05/11/17 09:00 06/10/17 08:59 05/14/17 10:41 200 MG Miscellaneous Information (Consult Glycemic Management Pharmacy) 1 ea UD PRN N/A 05/11/17 09:15 06/10/17 09:14 Insulin Aspart (novoLOG ASPART) SLIDING SCALE If C... Q4 SC 05/11/17 11:00 06/10/17 10:59 05/13/17 20:15 2 UNITS Insulin Glargine (Lantus Solostar Pen) QPM SC 05/11/17 21:00 06/10/17 23:59 05/13/17 20:18 30 UNITS Prednisolone Acetate (Pred Forte 1% Oph Susp (PER DROP CHARGE)) 1 drop DAILY OPR 05/12/17 09:00 06/11/17 08:59 Future hold Prednisolone Acetate (Pred Forte 1% Oph Susp (PER DROP CHARGE)) 1 drop TID OPL 05/11/17 21:00 06/10/17 20:59 Future hold Mupirocin (Bactroban 2% Oint) 1 appln BID EXT 05/11/17 21:15 05/16/17 21:14 05/14/17 10:42 1 APPLN Dexmedetomidine HCl 400 mcg/ Sodium Chloride 100 ml @ 0 mls/hr Q0M PRN IV 05/12/17 09:45 05/16/17 09:44 05/13/17 03:15 5.2 MLS/HR Methylcellulose (Citrucel Powder) 19 gm DAILY PO 05/12/17 13:30 06/11/17 13:29 05/14/17 10:37 19 GM Prednisone (PredniSONE TAB) 40 mg QAM PO 05/13/17 09:00 05/15/17 09:01 05/14/17 10:35 40 MG Insulin Glargine (Lantus Solostar Pen) QAM SC 05/14/17 09:00 06/13/17 08:59 05/14/17 10:43 60 UNITS Enteral Nutritional Formula (Prosource No Carb) 30 ml BID NG 05/13/17 21:00 06/12/17 20:59 05/14/17 10:35 30 ML Enteral Nutritional Formula (Peptamen Intense VHP) 1,000 ml UD PRN NG 05/13/17 19:00 06/12/17 18:59 05/13/17 20:06 1,000 ML Sterile Water (Tube Feeding Water Flush) 30 ea Q4 NG 05/14/17 12:00 06/13/17 11:59 05/14/17 12:40 30 EA Heparin Sodium (Porcine) 71021 unit/Sodium Chloride 500 ml @ 76 mls/hr Q6H35M PRN IV 05/14/17 14:00 06/13/17 13:59 Vital Signs: Date Time Temp Pulse Resp B/P (MAP) Pulse Ox O2 Delivery O2 Flow Rate FiO2 05/14/17 13:10 37.0 74 17 97 Trach Collar CPAP 05/14/17 12:33 74 153/76 (101) 97 05/14/17 12:02 37.0 75 130/70 (90) 89 05/14/17 12:00 Trach Collar 50 05/14/17 11:31 74 151/72 (98) 94 05/14/17 11:01 64 147/70 (95) 91 05/14/17 10:31 62 156/73 (100) 94 05/14/17 10:02 69 17 134/71 (92) 92 05/14/17 09:32 62 147/75 (99) 95 05/14/17 09:01 62 175/79 (111) 91 05/14/17 08:31 62 161/75 (103) 95 05/14/17 08:02 37.1 60 18 146/78 (100) 96 05/14/17 08:00 Trach Collar 50 05/14/17 07:31 61 168/73 (104) 96 05/14/17 07:01 62 16 163/76 (105) 95 05/14/17 06:02 59 20 168/78 (108) 94 05/14/17 05:42 40 05/14/17 05:31 63 21 135/93 (107) 98 05/14/17 05:01 61 17 141/76 (97) 97 05/14/17 04:29 37.0 67 158/78 (104) 97 CPAP 40 Mechanical Ventilator 05/14/17 04:00 40 05/14/17 04:00 CPAP 40 Mechanical Ventilator 05/14/17 03:46 64 15 157/81 (106) 98 CPAP 40 Mechanical Ventilator 05/14/17 03:01 62 157/72 (100) 98 CPAP 40 Mechanical Ventilator 05/14/17 02:31 63 18 153/73 (99) 99 CPAP 40 Mechanical Ventilator 05/14/17 02:20 61 142/70 (94) 96 CPAP 40 Mechanical Ventilator 05/14/17 01:47 40 05/14/17 01:31 63 142/68 (92) 97 CPAP 40 Mechanical Ventilator 05/14/17 01:01 60 21 153/69 (97) 99 CPAP 40 Mechanical Ventilator 05/14/17 00:31 67 145/72 (96) 99 CPAP 40 Mechanical Ventilator 05/14/17 00:01 CPAP 50 Mechanical Ventilator 05/14/17 00:01 50 05/14/17 00:01 36.6 60 23 147/73 (97) 97 CPAP 40 Mechanical Ventilator 05/13/17 23:42 40 05/13/17 23:32 61 137/61 (86) 98 CPAP 50 Mechanical Ventilator 05/13/17 23:02 64 15 147/64 (91) 98 CPAP 50 Mechanical Ventilator 05/13/17 22:31 67 174/71 (105) 97 CPAP 50 Mechanical Ventilator 05/13/17 22:02 63 16 127/68 (87) 99 CPAP 50 Mechanical Ventilator 05/13/17 21:31 66 133/70 (91) 99 CPAP 50 Mechanical Ventilator 05/13/17 21:03 64 18 113/87 (96) 98 CPAP 50 Mechanical Ventilator 05/13/17 20:32 58 153/96 (115) 99 CPAP 50 Mechanical Ventilator 05/13/17 20:10 50 05/13/17 20:02 37.0 59 17 154/70 (98) 98 CPAP 50 Mechanical Ventilator 05/13/17 20:00 50 05/13/17 20:00 CPAP 50 Mechanical Ventilator 05/13/17 19:32 57 169/76 (107) 98 CPAP 50 Mechanical Ventilator 05/13/17 19:01 58 19 159/68 (98) 99 CPAP 50 Mechanical Ventilator 05/13/17 18:00 50 22 155/70 (98) 100 Mechanical Ventilator 50 05/13/17 17:39 50 05/13/17 16:05 75 05/13/17 16:00 50 05/13/17 16:00 36.9 47 22 139/73 (95) 100 Mechanical Ventilator 50 05/13/17 16:00 Mechanical Ventilator 50 05/13/17 15:38 47 22 05/13/17 15:38 47 22 92 05/13/17 15:36 109/62 (72) 05/13/17 15:33 48 22 05/13/17 15:33 48 22 92 05/13/17 15:31 110/60 (68) 05/13/17 15:28 51 22 05/13/17 15:28 53 22 91 05/13/17 15:27 104/60 (68) 05/13/17 15:25 104/57 (69) 05/13/17 15:22 36.6 52 22 104/57 91 Mechanical Ventilator 75 Laboratory Results: Last 24 Hours Test 05/13/17 16:04 05/13/17 20:10 05/14/17 00:13 05/14/17 04:28 Bedside Glucose 170 mg/dl 151 mg/dl 135 mg/dl 137 mg/dl Test 05/14/17 05:32 05/14/17 13:53 Activated Partial Thromboplast Time 25.7 SECONDS Partial Thromboplastin Ratio 1.0 Venous Blood pH 7.42 Venous Blood Partial Pressure CO2 58 mmHg Venous Blood Partial Pressure O2 56 mmHg Venous Blood HCO3 37 mmol/L Venous Blood Oxygen Saturation 87.0 % Venous Blood Base Excess 10.0 mEq/L Sodium Level 139 mmol/L Potassium Level 3.6 mmol/L Chloride Level 100 mmol/L Carbon Dioxide Level 35 mmol/L Anion Gap 4.0 mmol/L Blood Urea Nitrogen 40 mg/dl Creatinine 1.72 mg/dl Est Creatinine Clear Calc Drug Dose 74.2 ml/min Estimated GFR () 45.7 Estimated GFR (Non- 39.4 BUN/Creatinine Ratio 23.0 Random Glucose 132 mg/dl Calcium Level 8.7 mg/dl Phosphorus Level 3.5 mg/dl Magnesium Level 2.2 mg/dl
[2017-05-14] MEDS ORDERED: [UNRECOGNIZED DRUG - CODE] IV (14:16)
[2017-05-14] MEDS ORDERED: DEXT40GE20 PO (14:16)
[2017-05-14] MEDS ORDERED: PRD20 PO (14:16)
[2017-05-14] MEDS ORDERED: Tube Feeding Water Flush NG (14:16)
[2017-05-14] MEDS ORDERED: NUTR-930 NG (14:16)
[2017-05-14] MEDS ORDERED: PRV100 PO (14:16)
[2017-05-14] MEDS ORDERED: [UNRECOGNIZED DRUG - CODE] PO (14:16)
[2017-05-14] MEDS ORDERED: ZFRI4 IV (14:16)
[2017-05-14] MEDS ORDERED: MULT1LIQ6 PO (14:16)
[2017-05-14] MEDS ORDERED: ZNCS220 PO (14:16)
[2017-05-14] MEDS ORDERED: DEXT4CHW64 PO (14:16)
[2017-05-14] MEDS ORDERED: GLCI SQ (14:16)
[2017-05-14] MEDS ORDERED: BCTRO EXT (14:16)
[2017-05-14] MEDS ORDERED: NTRSLP4 SL (14:16)
[2017-05-14] MEDS ORDERED: [UNRECOGNIZED DRUG - OTHER] (14:16)
[2017-05-14] MEDS ORDERED: INSDGIPEN SC ×2 (14:16)
[2017-05-14] MEDS ORDERED: Piperacill/Tazobac Consult (14:16)
[2017-05-14] MEDS ORDERED: ASCA500 PO (14:16)
[2017-05-14] MEDS ORDERED: NUTR-1049 NG (14:16)
[2017-05-14] MEDS ORDERED: [UNRECOGNIZED DRUG - CODE] IV (14:16)
[2017-05-14] MEDS ORDERED: NVLGIPEN SC (14:16)
--- NOTE | 2017-05-14 14:17 | Discharge Instructions ---
Discharge Instructions Date of Service May 14, 2017. Admission Reason for Admission: Respiratory Failure, Uti Discharge Discharge Diagnosis / Problem: Respiratory Failure Discharge Goals Goal(s): Decrease discomfort, Improve function Activity Recommendations Activity Limitations: as noted below (currently bedrest) . Current Hospital Diet Patient's current hospital diet: Diabetes Type 2 Diet, AHA Diet (Heart Healthy) Discharge Diet Recommended Diet: AHA Diet (Heart Healthy), Diabetes Type 2 Diet Procedures Procedures Performed: Tracheostomy Pending Studies Studies pending at discharge: no Laboratory Results Hemoglobin A1c Test 05/09/17 22:50 Range/Units Estimated Average Glucose 151 mg/dl Hemoglobin A1c 6.9 H 4.5-5.6 % Medical Emergencies . Who to Call and When: Medical Emergencies: If at any time you feel your situation is an emergency, please call 911 immediately. . Non-Emergent Contact Non-Emergency issues call your: Primary Care Provider Call Non-Emergent contact if: you have any medication questions . . "Provider Documentation" section prepared by Darrel Duran. .
--- NOTE | 2017-05-14 14:18 | Discharge Summary ---
Discharge Summary Date of Service May 14, 2017. Discharge Summary Admission Date: May 09, 2017 at 21:08 Discharge Date: May 14, 2017 Immunizations: Have You Had Influenza Vaccine: Unknown History of Tetanus Vaccine?: Unknown History of Pneumococcal: Unknown History of Hepatitis B Vaccine: Unknown Hospital Course Patient is a 71 year old male with a past medical history of Diabetes, Morbid Obesity, Hypertension, Chronic LE wound with cellulitis following with Dr. Acosta at wound clinic, and CHF that presents fro [facility] with worsening shortness of breath and lower extremity cellulitis Acute Hypoxic Respiratory Failure likely obesity hypoventilation syndrome BMI is 66 -Patient failed extubation/ and was reintubated 2 days ago. -Family meeting yesterday led to decision of a trach -procedure will be done tomorrow. - DA[place]/ [place] for cor pulmonale secondary to likely multiple etiologies -Patient remains critically ill -Patient's baseline pH likely near 7.33 based on calculations with bicarb in 40s -currently 7.41 (improved from 7.22) -palliative care on board. UTI - Urinalysis from [facility] - Leuk Est, Nit, WBC positive - Repeat UA, Urine Culture - Syed catheter in place -On Zosyn Left lower extremity venous thromboembolism * Heparin infusion Cellulitis/ Chronic Right Lower Extremity Wound - Antibiotics as above -ID on board - Wound Culture - Wound care consult with Dr. Acosta - Wound Care nurse - Currently dressed with Vaseline, Gauze, Kerlex, and WILLIAM wrap - Continue home Tramadol DM - Hold home metformin - ISS with BSG checks AC/HS CHF - Lasix 20mg PO BID Glaucoma - Continue Prednisolone Opth drops Right bundle branch block * Troponins negative 1, largely unremarkable BNP DVT - Heparin infusion This includes examination of the patient, discharge planning, medication reconciliation, and communication with other providers. Discharge Instructions Please refer to the electronic Patient Visit Report (Discharge Instructions) for additional information.
[2017-05-14 14:21] LABS: EOS % 0.5 %; EOS ABS # 0.05 K/uL (0-0.5); HEMATOCRIT 41.1 % (42-52); HEMOGLOBIN 12.8 g/dL (14.0-18.0); IG# 0.03 K/uL (0.00-0.02); LYMPH % 7.2 %; LYMPH ABS # 0.72 K/uL (1.2-3.4); MEAN CELL VOLUME 97.2 fL (80-100); MEAN CORPUSCULAR HEMOGLOBIN 30.3 pg (25-34); MEAN PLATELET VOLUME 9.3 fL (7.4-10.4); MONO % 8.8 %; MONO ABS # 0.88 K/uL (0.11-0.59); NEUT % 83.2 %; NEUT ABS # 8.34 K/uL (1.4-6.5); PLATELET COUNT 170 K/uL (130-400); RED CELL DISTRIBUTION WIDTH SD 53.1 fL (36.4-46.3); WHITE BLOOD COUNT 10.02 K/uL (4.8-10.8)
[2017-05-14 14:24] LABS: MEAN CORPUSCULAR HGB CONC 31.1 g/dl (32-36)
[2017-05-14 14:30] LABS: INR 1.2 (0.9-1.1)
[2017-05-14 17:06] LABS: PTT PATIENT 37.2 SECONDS (21.0-31.0)
== END 2017-05-14 20:16 | DRG 4 ==
LOC: C.2E 21:08 → ENRESERV 05-10 02:52 → C.MSICU 05-10 02:52
PROVIDERS: ADMIT Family Medicine; ATTEND Internal Medicine Sports Medicine
PROC: 5A1955Z Respiratory Ventilation, Greater than 96 Consecutive Hours (ICD-10-PCS; 2017-05-10)
PROC: 0BH18EZ Insertion of Endotracheal Airway into Trachea, Via Natural or Artificial Opening Endoscopic (ICD-10-PCS; 2017-05-10)
PROC: 02HV33Z Insertion of Infusion Device into Superior Vena Cava, Percutaneous Approach (ICD-10-PCS; 2017-05-10)
PROC: BH4BZZZ Ultrasonography of Chest Wall (ICD-10-PCS; 2017-05-10)
PROC: 0HTRXZZ Resection of Toe Nail, External Approach (ICD-10-PCS; 2017-05-11)
PROC: 0HBRXZZ Excision of Toe Nail, External Approach (ICD-10-PCS; 2017-05-11)
PROC: 0B110F4 Bypass Trachea to Cutaneous with Tracheostomy Device, Open Approach (ICD-10-PCS; principal; 2017-05-13 11:30)
DX: J96.22 Acute and chronic respiratory failure with hypercapnia (principal); L03.115 Cellulitis of right lower limb; E66.2 Morbid (severe) obesity with alveolar hypoventilation; Z68.44 Body mass index [BMI] 60.0-69.9, adult; N39.0 Urinary tract infection, site not specified; L97.319 Non-pressure chronic ulcer of right ankle with unspecified severity; G93.40 Encephalopathy, unspecified; R40.20 Unspecified coma; I82.422 Acute embolism and thrombosis of left iliac vein; E11.9 Type 2 diabetes mellitus without complications; I50.9 Heart failure, unspecified; I11.0 Hypertensive heart disease with heart failure; Z79.84 Long term (current) use of oral hypoglycemic drugs; H40.9 Unspecified glaucoma; I45.10 Unspecified right bundle-branch block; I89.0 Lymphedema, not elsewhere classified; J44.9 Chronic obstructive pulmonary disease, unspecified; Z87.891 Personal history of nicotine dependence